=== PATIENT | female | born 1945 | race Hispanic/Latino ===

== ENCOUNTER 2018-08-31 12:22 | Inpatient (IN) | payer MEDICARE ==
[2018-08-31] MEDS: PYRIDIUM PO SCH (22:23)
[2018-08-31] MEDS: REGLAN PO SCH (22:24)
[2018-09-01] MEDS: PYRIDIUM PO SCH (05:42)
[2018-09-01 07:39] LABS: Hematocrit 26.2 % (30.3-42.9); Hemoglobin 8.9 gm/dl (10.1-14.3); Mean Corpuscular HGB Conc 34 % (30-34); Mean Corpuscular Volume 82 fl (79-97); Platelet Count 457 K/mm3 (140-440); Red Cell Distribution Width 16.3 % (13.2-15.2)
[2018-09-01 08:00] LABS: Albumin 2.4 g/dL (3.9-5); Calcium 7.9 mg/dL (8.4-10.2); Prealbumin 0.173 g/L (0.200-0.400)
[2018-09-01] MEDS: REGLAN PO SCH ×4 (08:10→22:02)
[2018-09-01 08:38] LABS: Basophils % (Manual) 0 % (0.0-1.8); Myelocytes # (Manual) 0.1 K/mm3; Total Cells Counted 100
[2018-09-01 08:39] LABS: Anisocytosis 1+
--- NOTE | 2018-09-01 08:46 | History and Physical Report ---
History of Present Illness Date: 09/01/18 Referring Facility: [facility] Date of admission: 08/31/18 20:21 Chief Complaint: Debility s/p bladder cancer resection History of present illness: 73-year-old female with a past history of breast cancer, colorectal cancer and bladder cancer underwent surgical repair of a large parastomal hernia and radica l cystectomy with total abdominal hysterectomy, bilateral salpingo-oophorectomy and anterior vaginectomy. She had a complex abdominal wall reconstruction with repair for the peristomal hernia as well as a ileal conduit creation. Patient has tolerated the procedures well. She has macular degeneration and will need to compensate for the visual impairment Of note patient states that she previously had diabetes and was placed on glipizide however her primary care physician took her off medication and noted that her A1c normalized after being off medication for some time. Likewise she also had hypertension but was becoming hypotensive frequently and her physician weaned her off of her antihypertensives with good results. She was transferred to us on antihypertensives but we will monitor her off of antihypertensive medications replacing them judiciously if need be. I'll recheck an A1c just to clarify that she does not need to be on any medication or treatment for diabetes. Also adjusted the transfer medications to include stopping Pyridium. Patient states that she thought she was taken off of the Macrobid however I was able to contact the urology service at [place] and they advised that she needs to continue taking Macrobid until the stents are removed. She will need a follow-u p in 2 weeks with urology with Dr. QUESADA. After the patient was medically stabilized they were transferred for further rehabilitation. All available medical records have been reviewed but there are limited records from the acute care hospital. Plan of care was discussed with patient and family. Past History Past Medical History: cancer, diabetes (claims she does not have DM anymore), DVT (resolved), hypertension (claims she does not have HTNanymore), hyperlipidemia, other (gastroparesis, macular degeneration, ckd) Past Surgical History: hysterectomy, bowel surgery, Other (radical cystectomy) Social history: single, Lives alone (one story home), full code. denies: smoking, alcohol abuse, prescription drug abuse, IV drug use Family history: cancer, diabetes, hypertension Medications and Allergies Allergies Allergy/AdvReac Type Severity Reaction Status Date / Time ciprofloxacin AdvReac Unknown Unverified 08/31/18 12:25 levofloxacin [From Levaquin] AdvReac Unknown Unverified 08/31/18 12:25 Home Medications Medication Instructions Recorded Confirmed Last Taken Type Adult One Daily Multivit Tab 1 tab PO DAILY 09/01/18 09/01/18 Unknown History Aspirin [Adult Aspirin] 81 mg PO DAILY 09/01/18 09/01/18 Unknown History Crestor 40 mg PO HS 09/01/18 09/01/18 Unknown History Lisinopril/Hydrochlorothiazide 20 - 25 mg PO DAILY 09/01/18 09/01/18 Unknown History [Zestoretic 10-12.5 mg Tablet] Metoclopramide 5 mg PO ACHS 09/01/18 09/01/18 Unknown History Miralax 1 pack PO DAILY 09/01/18 09/01/18 Unknown History Nitrofurantoin Macrocrystal 100 mg PO DAILY 09/01/18 09/01/18 Unknown History [Macrodantin] Phenazopyridine [Pyridium] 200 mg PO PC 09/01/18 09/01/18 Unknown History Active Meds: Active Medications Aspirin (Baby Aspirin) 81 mg PO QDAY [facility] Atorvastatin Calcium (Lipitor) 40 mg PO QHS [facility] Last Admin: 08/31/18 22:23 Dose: 40 mg Documented by: Enoxaparin Sodium (Lovenox) 40 mg SUB-Q QDAY [facility] Hydrochlorothiazide (Hctz) 25 mg PO QDAY [facility] Lisinopril (Zestril) 20 mg PO QDAY [facility] Metoclopramide HCl (Reglan) 5 mg PO [facility] Last Admin: 09/01/18 08:10 Dose: 5 mg Documented by: Nitrofurantoin Macrocrystals (Macrobid) 100 mg PO DAILY [facility] Phenazopyridine HCl (Pyridium) 200 mg PO Q8HR [facility] Last Admin: 09/01/18 05:42 Dose: 200 mg Documented by: Polyethylene Glycol (Miralax [id number]) 17 gm PO QDAY [facility] Trazodone HCl (Desyrel) 50 mg PO QHS PRN PRN Reason: Insomnia Review of Systems All systems: negative (ROS negative for 12 systems except as noted below with pertinent positives and negatives.) Constitutional: weight loss, weakness Eyes: right: decreased vision (macular degeneration) Ears, nose, mouth and throat: no decreased hearing, no odynophagia Cardiovascular: decreased exercise tolerance, no chest pain, no rapid/irregular heart beat, no edema Respiratory: dyspnea on exertion, no cough Gastrointestinal: no nausea, no vomiting, no diarrhea, no constipation Musculoskeletal: gait dysfunction, arthritis Integumentary: wounds, no sores Neurological: weakness, no numbness, no tremors, no lack of coordination Psychiatric: anxiety Exam - Exam Narrative exam: MUSCULOSKELETAL SPECIALTY EXAM CONSTITUTIONAL: Well developed, well nourished, appropriately groomed, NAD LYMPHATIC: No appreciable abnormalities palpable in neck EENT: Visual ding full to confrontation on left. Macular degenration on right. EOMI. Oropharynx clear. Hearing intact to soft voice RESPIRATORY: Clear to ascultation bilaterally, no increased work of breathing CARDIOVASCULAR: Regular Rate/ Rhythm, no swelling, edema or tenderness in BUE or BLE. Pulses palpable in all extremities. All extremities warm. GI: + bowel sounds, soft, NTTP, nondistended. Ostomy (L) and ileal conduit (R) in place and functioning INTEGUMENTARY: Normal, no lesion, rash, masses or bruising noted in extremities. MUSCULOSKELETAL: BUE and BLE normal without defect, crepitus, subluxation, effusion, arthritic changes or TTP. BUE 4/5, good ROM, with normal tone. BLE 4/5 good ROM, with normal tone NEURO: CN 2-12 grossly intact. Sensation intact in all extremities. Reflexes 2+ bilaterally at biceps, brachioradialis and patella. No clonus at ankles. Coordination intact in BUE. No tremor noted in 4 extremities. POSTURE and GAIT: Sitting posture good. Balance appears reasonable. Gait deferred until seen with therapy. PSYCH: Alert, orientated x3, affect appears normal. Insight appears intact. - Constitutional Vitals: Vital Signs - 12hr 09/01/18 09/01/18 04:00 07:30 Temperature 37.0 C 36.8 C Pulse Rate 91 H 95 H Respiratory 20 18 Rate Blood Pressure 121/62 Blood Pressure 135/66 [Left] O2 Sat by Pulse 94 92 Oximetry - Allied health notes FIMS assesment as documented by PT/OT/ST: Social interaction/Memory/Problem solving Social Interaction FIM Score 7. Complete [place] (Interacts appropriately. Controls temper.) Memory FIM Score 7. Complete [place] (Remembers people and routines.) Problem Solving FIM Score 7. Complete [place] (Solves complex problems. Self corrects.) - Labs CBC & Chem 7: 09/01/18 07:16 09/01/18 07:16 Labs: Laboratory Results - last 72 hr 08/31/18 09/01/18 09/01/18 21:50 07:16 07:16 WBC 9.2 RBC 3.20 L Hgb 8.9 L Hct 26.2 L MCV 82 MCH 28 MCHC 34 RDW 16.3 H Plt Count 457 H Add Manual Diff Complete Total Counted 100 Seg Neuts % (Manual) 82.0 H Band Neutrophils % 0 Lymphocytes % (Manual) 9.0 L Reactive Lymphs % (Man) 0 Monocytes % (Manual) 5.0 Eosinophils % (Manual) 2.0 Basophils % (Manual) 0 Metamyelocytes % 1.0 Myelocytes % 1.0 Promyelocytes % 0 Blast Cells % 0 Nucleated RBC % Not Reportable Seg Neutrophils # Man 7.5 Band Neutrophils # 0.0 Lymphocytes # (Manual) 0.8 L Abs React Lymphs (Man) 0.0 Monocytes # (Manual) 0.5 Eosinophils # (Manual) 0.2 Basophils # (Manual) 0.0 Metamyelocytes # 0.1 Myelocytes # 0.1 Promyelocytes # 0.0 Blast Cells # 0.0 WBC Morphology Not Reportable Hypersegmented Neuts Not Reportable Hyposegmented Neuts Not Reportable Hypogranular Neuts Not Reportable Smudge Cells Not Reportable Toxic Granulation Not Reportable Toxic Vacuolation Not Reportable Dohle Bodies Not Reportable Pelger-Huet Anomaly Not Reportable Mine Rods Not Reportable Platelet Estimate Appears normal Clumped Platelets Not Reportable Plt Clumps, EDTA Not Reportable Large Platelets Not Reportable Giant Platelets Not Reportable Platelet Satelliting Not Reportable Plt Morphology Comment Not Reportable RBC Morphology Not Reportable Dimorphic RBCs Not Reportable Polychromasia Not Reportable Hypochromasia Not Reportable Poikilocytosis Not Reportable Anisocytosis 1+ Microcytosis Not Reportable Macrocytosis Not Reportable Spherocytes Not Reportable Pappenheimer Bodies Not Reportable Sickle Cells Not Reportable Target Cells Not Reportable Tear Drop Cells Not Reportable Ovalocytes Not Reportable Helmet Cells Not Reportable Arellano-Turon Bodies Not Reportable Disney Rings Not Reportable [place] Cells Not Reportable Bite Cells Not Reportable Crenated Cell Not Reportable Elliptocytes Not Reportable Acanthocytes (Spur) Not Reportable Rouleaux Not Reportable Hemoglobin C Crystals Not Reportable Schistocytes Not Reportable Malaria parasites Not Reportable Fortunato Bodies Not Reportable Hem Pathologist Commnt No Sodium 133 L Potassium 4.0 Chloride 97.8 L Carbon Dioxide 28 Anion Gap 11 BUN 11 Creatinine 1.0 Estimated GFR 54 BUN/Creatinine Ratio 11 Glucose 131 H POC Glucose 152 H Calcium 7.9 L Total Bilirubin 0.20 AST 20 ALT 10 Alkaline Phosphatase 55 Total Protein 5.1 L Albumin 2.4 L Albumin/Globulin Ratio 0.9 Prealbumin 0.173 L 09/01/18 07:51 WBC RBC Hgb Hct MCV MCH MCHC RDW Plt Count Add Manual Diff Total Counted Seg Neuts % (Manual) Band Neutrophils % Lymphocytes % (Manual) Reactive Lymphs % (Man) Monocytes % (Manual) Eosinophils % (Manual) Basophils % (Manual) Metamyelocytes % Myelocytes % Promyelocytes % Blast Cells % Nucleated RBC % Seg Neutrophils # Man Band Neutrophils # Lymphocytes # (Manual) Abs React Lymphs (Man) Monocytes # (Manual) Eosinophils # (Manual) Basophils # (Manual) Metamyelocytes # Myelocytes # Promyelocytes # Blast Cells # WBC Morphology Hypersegmented Neuts Hyposegmented Neuts Hypogranular Neuts Smudge Cells Toxic Granulation Toxic Vacuolation Dohle Bodies Pelger-Huet Anomaly Mine Rods Platelet Estimate Clumped Platelets Plt Clumps, EDTA Large Platelets Giant Platelets Platelet Satelliting Plt Morphology Comment RBC Morphology Dimorphic RBCs Polychromasia Hypochromasia Poikilocytosis Anisocytosis Microcytosis Macrocytosis Spherocytes Pappenheimer Bodies Sickle Cells Target Cells Tear Drop Cells Ovalocytes Helmet Cells Arellano-Turon Bodies Disney Rings Fadi Cells Bite Cells Crenated Cell Elliptocytes Acanthocytes (Spur) Rouleaux Hemoglobin C Crystals Schistocytes Malaria parasites Fortunato Bodies Hem Pathologist Commnt Sodium Potassium Chloride Carbon Dioxide Anion Gap BUN Creatinine Estimated GFR BUN/Creatinine Ratio Glucose POC Glucose 116 H Calcium Total Bilirubin AST ALT Alkaline Phosphatase Total Protein Albumin Albumin/Globulin Ratio Prealbumin Assessment and Plan Assessment and plan: Patient was assessed and evaluated for Acute Inpatient Rehab Unit. Due to the patients above-mentioned medical complexity, along with decreased functional mobility and self care, this patient continues to require and be appropriate for a comprehensive, multidisciplinary [id number] rehabil itation program. These needs cannot be met in an outpatient or other less intensive setting. The patient would continue to benefit from skilled therapy intervention for at least 3 hours per day, five days a week, with techniques specific to the needs of the patient to improve function, activities of daily living, and reintegration into the community. The patient continues to require: -- OT to improve ROM, self-care, and learn use of adaptive equipment -- PT to improve strength and balance, functional transfers, and ambulation with energy conservation techniques to improve functional mobility -- MARKET GARDENER to address cognitive deficits and swallowing ability -- 24 hour RN to ensure and prevent skin breakdown, promote progressive independence while ensuring safety, ensure education regarding medications, and incorporation of the rehabilitation at the bedside -- 24 hour Machine Feeder to coordinate this interdisciplinary program, and to manage/prevent complications as a result of the patients medical comorbidities. -Plan of care by day 4 -Weekly team conferences With such a program, there is a reasonable certainty that the goals individualized for this patient can be achieved within the specified length of stay. Z48.815 / Z48.816 s/p colorectal cancer and bladder cancer with radical cyst ectomy and parastomal repair: monitor wound sites and ostomy output. Macrobid ppx until stents are removed at follow up. R53.81 Debility: PT & OT will work on improving overall functional status to im prove participation with ADLs, mobility and social involvement. E44.0 Moderate Protein malnutrition: Planetarium Technician consult, monitor for improvement G47.00 Insomnia: trazodone prn, monitor Z73.6 ADL dysfunction: OT will work on improving ability to perform ADLs (including assistive devices) to increase independence and decrease caregiver burden and improve functional transfers and mobility training. R26.2 Difficulty walking: PT will work on gait training and proper use of assistive devices and advance as appropriate to use of stairs and outside ambulation on uneven surfaces. R26.81 Unsteadiness on feet: PT will work on improving static and dynamic sitting and standing balance as well as proper use of assistive devices to decrease risk of falls. R26.89 Abnormality of gait: PT will work to improve safety and efficiency of gait through neuromotor training and gait training along with instruction on proper use of assistive devices. M62.81 Muscle weakness: PT & OT will work on strengthening exercises to improve functional strength including mixture of closed and open kinetic chain exercises. R53.83 Fatigue: PT & OT will work on improving endurance through aerobic exercises and therapeutic activity while monitoring patients tolerance for activity and vital signs as needed. N18.9 CKD: avoid nephrotoxic medication, monitor renal function E78.5 Hyperlipidemia: continue statin HTN: monitor and restart medications if needed DM: recheck A1c to confirm, monitor Macular Degeneration: Avastin every 6 wks, next dose at end of month DVT ppx: lovenox Pain: Continue physical modalities in therapy and pain medications as needed to achieve functional pain control. Sleep: Monitor and address as needed. Trazodone ordered. Bowel: Monitor and address as needed. Appetite: Monitor and address as needed. Discharge planning: Pending therapy progress and care plan meeting. Will continue discussion with therapy team, SW, patient and family. Restrictions/ Precautions: Falls, abdominal binder/precautions WB status: FWB Functional Hx: ADLs: Independent Cognition: Independent Mobility: No AD Barriers to Discharge: Decreased mobility and ability to perform self care, balance deficits, weakness Estimated Length of Stay: 14-21 days Discharge Destination: Home with family POST ADMISSION PHYSICIAN EVALUATION I have examined the patient and find that functional status, medical condition a nd appropriateness for IRF admission are essentially unchanged from those described in the preadmission screening. Will monitor for worsening issues with bowel/urine output, surgical site infection, DVT/PE, and complications due to possible HTN, DM and electrolyte abnormalities. Will attempt to avoid occurrence of these issues or treat them if they present themselves.
[2018-09-01] MEDS ORDERED: ZESTRIL PO SCH (10:00)
[2018-09-01] MEDS ORDERED: MACROBID PO SCH (10:00)
[2018-09-01] MEDS ORDERED: HCTZ PO SCH (10:00)
[2018-09-01] MEDS ORDERED: MIRALAX 3350 PO SCH (10:00)
[2018-09-01] MEDS: LOVENOX SUB-Q SCH (10:58)
[2018-09-01] MEDS: BABY ASPIRIN PO SCH (10:58)
[2018-09-01] MEDS: MACROBID PO SCH (11:00)
[2018-09-02] MEDS: REGLAN PO SCH ×4 (09:04→23:32)
[2018-09-02] MEDS: BABY ASPIRIN PO SCH (09:04)
[2018-09-02] MEDS: MACROBID PO SCH (09:04)
[2018-09-02] MEDS: LOVENOX SUB-Q SCH (09:05)
[2018-09-02] MEDS: PERCOCET 5/325 PO PRN ×2 (10:12→16:54)
--- NOTE | 2018-09-02 10:44 | Progress Note ---
Subjective Date of service: 09/02/18 Principal diagnosis: Debility s/p bladder cancer resection Interval history: 73-year-old female with a past history of breast cancer, colorectal cancer and bladder cancer underwent surgical repair of a large parastomal hernia and radical cystectomy with total abdominal hysterectomy, bilateral salpingo- oophorectomy and anterior vaginectomy. She had a complex abdominal wall reconstruction with repair for the peristomal hernia as well as a ileal conduit creation. Patient has tolerated the procedures well. She has macular degeneration and will need to compensate for the visual impairment. Patient is participating in therapy and making reasonable progress. Taking rest breaks as needed. +ostomy output. Having pain related to activity and movement in general. Typically takes percocet at home, have reordered low dose prn. Decreased appetite and does not like ensure type supplements. States she does not eat much at home. Encouraged her to increase protein intake. Denies palpitations, dyspnea, cough, N/V, weakness, or joint pain. BP steady, may need low dose antihypertensive soon. Will continue to monitor. All records, vitals, labs and medications were reviewed. No other issues per patient, nursing or therapy. Objective - Exam Narrative Exam: MUSCULOSKELETAL SPECIALTY EXAM CONSTITUTIONAL: Well developed, well nourished, appropriately groomed, NAD EENT: EOMI. Hearing intact to soft voice RESPIRATORY: Clear to ascultation bilaterally, no increased work of breathing CARDIOVASCULAR: Regular Rate/ Rhythm, no swelling, edema or tenderness in BUE or BLE. All ex tremities warm. GI: + bowel sounds, soft, NTTP, nondistended. Ostomy (L) and ileal conduit (R) in place and functioning INTEGUMENTARY: Normal, no lesion, rash, masses or bruising noted in extremities. MUSCULOSKELETAL: BUE and BLE normal without defect, crepitus, subluxation, effusion, arthritic changes or TTP. BUE 4/5, good ROM, with normal tone. BLE 4/5 good ROM, with normal tone NEURO: CN 2-12 grossly intact. Sensation intact in all extremities. No tremor noted in 4 extremities. POSTURE and GAIT: Sitting posture good. Balance appears reasonable. Gait deferred until seen with therapy. PSYCH: Alert, orientated x3, affect appears normal. Insight appears intact. - Constitutional Vitals: Vital Signs - 12hr 04/11/1509/02/18 09/02/18 00:14 04:38 07:45 Temperature 36.7 C 36.6 C Pulse Rate 88 95 H 85 Respiratory 17 17 Rate Blood Pressure 137/68 137/69 O2 Sat by Pulse 94 94 Oximetry - Allied health notes Allied health notes reviewed: nursing, PT, OT FIMS assessment as documented by PT/OT/ST: Grooming Patient cleans teeth/dentures: Yes Patient leslie/brushes hair: Yes Patient washes, rinses and Yes dries face: Patient washes, rinses and Yes dries hands: Grooming FIM Score 3. Moderate Assistance (Patient = 50% or more) Social interaction/Memory/Problem solving Social Interaction FIM Score 7. Complete Victoria (Interacts appropriately. Controls temper.) Memory FIM Score 7. Complete [place] (Remembers people and routines.) Problem Solving FIM Score 6. Mod. [place] (Mild difficulty or needs more time w/ complex.) Transfers Mode of Locomotion: Walking Bed/Chair/Wheelchair Transfers 4. Minimal Assistance (Patient = 75% or more. FIM Score Needs touching.) Locomotion- Stairs Stairs FIM Score 0. Activity does not occur Locomotion- walk/wheelchair Most Frequent Mode of Walking Locomotion: Ambulation Distance 25 Walking FIM Score 1. Total Assistance (Pt. < 25%, 2 or more person assist, or <50 ft.) Wheelchair Propulsion Distance 90 Wheelchair FIM Score 2. Maximal Assistance (Patient = 25% or more. Minimum of 50 ft.) Dressing-Upper body Patient retrieves clothing Yes items: Upper Body Dressing FIM Score 3. Moderate Assistance (Patient = 50% or more) - Labs CBC & Chem 7: 09/01/18 07:16 09/01/18 07:16 Labs: Laboratory Results - last 72 hr 08/31/18 09/01/18 09/01/18 21:50 07:16 07:16 WBC 9.2 RBC 3.20 L Hgb 8.9 L Hct 26.2 L MCV 82 MCH 28 MCHC 34 RDW 16.3 H Plt Count 457 H Add Manual Diff Complete Total Counted 100 Seg Neuts % (Manual) 82.0 H Band Neutrophils % 0 Lymphocytes % (Manual) 9.0 L Reactive Lymphs % (Man) 0 Monocytes % (Manual) 5.0 Eosinophils % (Manual) 2.0 Basophils % (Manual) 0 Metamyelocytes % 1.0 Myelocytes % 1.0 Promyelocytes % 0 Blast Cells % 0 Nucleated RBC % Not Reportable Seg Neutrophils # Man 7.5 Band Neutrophils # 0.0 Lymphocytes # (Manual) 0.8 L Abs React Lymphs (Man) 0.0 Monocytes # (Manual) 0.5 Eosinophils # (Manual) 0.2 Basophils # (Manual) 0.0 Metamyelocytes # 0.1 Myelocytes # 0.1 Promyelocytes # 0.0 Blast Cells # 0.0 WBC Morphology Not Reportable Hypersegmented Neuts Not Reportable Hyposegmented Neuts Not Reportable Hypogranular Neuts Not Reportable Smudge Cells Not Reportable Toxic Granulation Not Reportable Toxic Vacuolation Not Reportable Dohle Bodies Not Reportable Pelger-Huet Anomaly Not Reportable Mine Rods Not Reportable Platelet Estimate Appears normal Clumped Platelets Not Reportable Plt Clumps, EDTA Not Reportable Large Platelets Not Reportable Giant Platelets Not Reportable Platelet Satelliting Not Reportable Plt Morphology Comment Not Reportable RBC Morphology Not Reportable Dimorphic RBCs Not Reportable Polychromasia Not Reportable Hypochromasia Not Reportable Poikilocytosis Not Reportable Anisocytosis 1+ Microcytosis Not Reportable Macrocytosis Not Reportable Spherocytes Not Reportable Pappenheimer Bodies Not Reportable Sickle Cells Not Reportable Target Cells Not Reportable Tear Drop Cells Not Reportable Ovalocytes Not Reportable Helmet Cells Not Reportable Arellano-[place] Bodies Not Reportable Azle Rings Not Reportable Fadi Cells Not Reportable Bite Cells Not Reportable Crenated Cell Not Reportable Elliptocytes Not Reportable Acanthocytes (Spur) Not Reportable Rouleaux Not Reportable Hemoglobin C Crystals Not Reportable Schistocytes Not Reportable Malaria parasites Not Reportable Fortun[place] Bodies Not Reportable Hem Pathologist Commnt No Sodium 133 L Potassium 4.0 Chloride 97.8 L Carbon Dioxide 28 Anion Gap 11 BUN 11 Creatinine 1.0 Estimated GFR 54 BUN/Creatinine Ratio 11 Glucose 131 H POC Glucose 152 H Hemoglobin A1c Calcium 7.9 L Total Bilirubin 0.20 AST 20 ALT 10 Alkaline Phosphatase 55 Total Protein 5.1 L Albumin 2.4 L Albumin/Globulin Ratio 0.9 Prealbumin 0.173 L 09/01/18 09/01/18 09/01/18 07:51 11:18 16:55 WBC RBC Hgb Hct MCV MCH MCHC RDW Plt Count Add Manual Diff Total Counted Seg Neuts % (Manual) Band Neutrophils % Lymphocytes % (Manual) Reactive Lymphs % (Man) Monocytes % (Manual) Eosinophils % (Manual) Basophils % (Manual) Metamyelocytes % Myelocytes % Promyelocytes % Blast Cells % Nucleated RBC % Seg Neutrophils # Man Band Neutrophils # Lymphocytes # (Manual) Abs React Lymphs (Man) Monocytes # (Manual) Eosinophils # (Manual) Basophils # (Manual) Metamyelocytes # Myelocytes # Promyelocytes # Blast Cells # WBC Morphology Hypersegmented Neuts Hyposegmented Neuts Hypogranular Neuts Smudge Cells Toxic Granulation Toxic Vacuolation Dohle Bodies Pelger-Huet Anomaly Mine Rods Platelet Estimate Clumped Platelets Plt Clumps, EDTA Large Platelets Giant Platelets Platelet Satelliting Plt Morphology Comment RBC Morphology Dimorphic RBCs Polychromasia Hypochromasia Poikilocytosis Anisocytosis Microcytosis Macrocytosis Spherocytes Pappenheimer Bodies Sickle Cells Target Cells Tear Drop Cells Ovalocytes Helmet Cells Arellano-[place] Bodies Azle Rings [place] Cells Bite Cells Crenated Cell Elliptocytes Acanthocytes (Spur) Rouleaux Hemoglobin C Crystals Schistocytes Malaria parasites Fortunato Bodies Hem Pathologist Commnt Sodium Potassium Chloride Carbon Dioxide Anion Gap BUN Creatinine Estimated GFR BUN/Creatinine Ratio Glucose POC Glucose 116 H 142 H 134 H Hemoglobin A1c Calcium Total Bilirubin AST ALT Alkaline Phosphatase Total Protein Albumin Albumin/Globulin Ratio Prealbumin 09/01/18 09/02/18 09/02/18 21:59 06:53 07:24 WBC RBC Hgb Hct MCV MCH MCHC RDW Plt Count Add Manual Diff Total Counted Seg Neuts % (Manual) Band Neutrophils % Lymphocytes % (Manual) Reactive Lymphs % (Man) Monocytes % (Manual) Eosinophils % (Manual) Basophils % (Manual) Metamyelocytes % Myelocytes % Promyelocytes % Blast Cells % Nucleated RBC % Seg Neutrophils # Man Band Neutrophils # Lymphocytes # (Manual) Abs React Lymphs (Man) Monocytes # (Manual) Eosinophils # (Manual) Basophils # (Manual) Metamyelocytes # Myelocytes # Promyelocytes # Blast Cells # WBC Morphology Hypersegmented Neuts Hyposegmented Neuts Hypogranular Neuts Smudge Cells Toxic Granulation Toxic Vacuolation Dohle Bodies Pelger-Huet Anomaly Mine Rods Platelet Estimate Clumped Platelets Plt Clumps, EDTA Large Platelets Giant Platelets Platelet Satelliting Plt Morphology Comment RBC Morphology Dimorphic RBCs Polychromasia Hypochromasia Poikilocytosis Anisocytosis Microcytosis Macrocytosis Spherocytes Pappenheimer Bodies Sickle Cells Target Cells Tear Drop Cells Ovalocytes Helmet Cells Arellano-[place] Bodies Azle Rings [place] Cells Bite Cells Crenated Cell Elliptocytes Acanthocytes (Spur) Rouleaux Hemoglobin C Crystals Schistocytes Malaria parasites Fortunato Bodies Hem Pathologist Commnt Sodium Potassium Chloride Carbon Dioxide Anion Gap BUN Creatinine Estimated GFR BUN/Creatinine Ratio Glucose POC Glucose 114 H 116 H Hemoglobin A1c 5.3 Calcium Total Bilirubin AST ALT Alkaline Phosphatase Total Protein Albumin Albumin/Globulin Ratio Prealbumin Assessment and Plan Z48.815 / Z48.816 s/p colorectal cancer and bladder cancer with radical cystectomy and parastomal repair: monitor wound sites and ostomy output. Macrobid ppx until stents are removed at follow up. R53.81 Debility: PT & OT will work on improving overall functional status to improve participation with ADLs, mobility and social involvement. E44.0 Moderate Protein malnutrition: Recovery Analyst consult, monitor for improvement G47.00 Insomnia: trazodone prn, monitor Z73.6 ADL dysfunction: OT will work on improving ability to perform ADLs (including assistive devices) to increase independence and decrease caregiver burden and improve functional transfers and mobility training. R26.2 Difficulty walking: PT will work on gait training and proper use of assistive devices and advance as appropriate to use of stairs and outside ambulation on uneven surfaces. R26.81 Unsteadiness on feet: PT will work on improving static and dynamic sitting and standing balance as well as proper use of assistive devices to decrease risk of falls. R26.89 Abnormality of gait: PT will work to improve safety and efficiency of gait through neuromotor training and gait training along with instruction on proper use of assistive devices. M62.81 Muscle weakness: PT & OT will work on strengthening exercises to improve functional strength including mixture of closed and open kinetic chain e xercises. R53.83 Fatigue: PT & OT will work on improving endurance through aerobic exercises and therapeutic activity while monitoring patients tolerance for activity and vital signs as needed. N18.9 CKD: avoid nephrotoxic medication, monitor renal function E78.5 Hyperlipidemia: continue statin HTN: monitor and restart medications if needed. Ok so far DM: recheck A1c 5.3. Will remove diagnosis Macular Degeneration: Avastin every 6 wks, next dose at end of month DVT ppx: lovenox Pain: Continue physical modalities in therapy and pain medications as needed to achieve functional pain control. Sleep: Monitor and address as needed. Trazodone ordered. Bowel: Monitor and address as needed. Appetite: Monitor and address as needed. Discharge planning: Pending therapy progress and care plan meeting. Will continue discussion with therapy team, SW, patient and family. Restrictions/ Precautions: Falls, abdominal binder/precautions WB status: FWB Functional Hx: ADLs: Independent Cognition: Independent Mobility: No AD Barriers to Discharge: Decreased mobility and ability to perform self care, balance deficits, weakness Estimated Length of Stay: 14-21 days Discharge Destination: Home with family
[2018-09-03] MEDS: REGLAN PO SCH ×4 (07:49→21:15)
[2018-09-03] MEDS: BABY ASPIRIN PO SCH (07:49)
[2018-09-03] MEDS: LOVENOX SUB-Q SCH (07:50)
[2018-09-03] MEDS: MACROBID PO SCH ×2 (07:57→11:43)
[2018-09-03 08:09] LABS: Hematocrit 27.1 % (30.3-42.9); Hemoglobin 8.9 gm/dl (10.1-14.3); Mean Corpuscular HGB Conc 33 % (30-34); Mean Corpuscular Volume 83 fl (79-97); Platelet Count 429 K/mm3 (140-440); Red Blood Count 3.27 M/mm3 (3.65-5.03); Red Cell Distribution Width 15.8 % (13.2-15.2)
[2018-09-03 08:30] LABS: BUN/Creatinine Ratio 13; Blood Urea Nitrogen 10 mg/dL (7-17); Hemolysis Index 39
--- NOTE | 2018-09-03 11:04 | Progress Note ---
Subjective Date of service: 09/03/18 Principal diagnosis: Debility s/p bladder cancer resection Interval history: 73-year-old female with a past history of breast cancer, colorectal cancer and bladder cancer underwent surgical repair of a large parastomal hernia and radical cystectomy with total abdominal hysterectomy, bilateral salpingo- oophorectomy and anterior vaginectomy. She had a complex abdominal wall reconstruction with repair for the peristomal hernia as well as a ileal conduit creation. Patient has tolerated the procedures well. She has macular degeneration and will need to compensate for the visual impairment. Patient is participating in therapy and making reasonable progress. Taking rest breaks as needed. +ostomy output. Having pain related to activity and movement in general, better with rest and percocet. Decreased appetite and does not like ensure type supplements but now states she will try them. Encouraged her to increase protein intake. Denies palpitations, dyspnea, cough, N/V, weakness, or joint pain. BP steady, may need low dose antihypertensive soon. Will continue to monitor. Hyponatremia worsening. Ordered workup and reviewed outside records for trend. All records, vitals, labs and medications were reviewed. No other issues per patient, nursing or therapy. Objective - Exam Narrative Exam: MUSCULOSKELETAL SPECIALTY EXAM CONSTITUTIONAL: Well developed, well nourished, appropriately groomed, NAD EENT: EOMI. Hearing intact to soft voice RESPIRATORY: Clear to ascultation bilaterally, no increased work of breathing CARDIOVASCULAR: Regular Rate/ Rhythm, no swelling, edema or tenderness in BUE or BLE. All extremities warm. GI: + bowel sounds, soft, NTTP, nondistended. Ostomy (L) and ileal conduit (R) in place and functioning INTEGUMENTARY: Normal, no lesion, rash, masses or bruising noted in extremities. MUSCULOSKELETAL: BUE and BLE normal without defect, crepitus, subluxation, effusion, arthritic changes or TTP. BUE 4/5, good ROM, with normal tone. BLE 4/5 good ROM, with normal tone NEURO: CN 2-12 grossly intact. Sensation intact in all extremities. No tremor noted in 4 extremities. POSTURE and GAIT: Sitting posture good. Balance appears reasonable. Gait deferred until seen with therapy. PSYCH: Alert, orientated x3, affect appears normal. Insight appears intact. - Constitutional Vitals: Vital Signs - 12hr 09/03/18 07:24 Temperature 36.8 C Pulse Rate 89 Respiratory 20 Rate Blood Pressure 134/71 O2 Sat by Pulse 94 Oximetry - Allied health notes Allied health notes reviewed: nursing, PT, OT FIMS assessment as documented by PT/OT/ST: Grooming Patient cleans teeth/dentures: Yes Patient leslie/brushes hair: Yes Patient washes, rinses and Yes dries face: Patient washes, rinses and Yes dries hands: Patient shaves: No Patient applies make-up: No Patient performs (no make-up/ 3/4 (75%) shaving): Grooming FIM Score 5. Supervision ([place] applies toothpaste or opens containers.) Social interaction/Memory/Problem solving Social Interaction FIM Score 5. Supervision (Needs supv. <10%. Needs encouragement to participate.) Memory FIM Score 5. Supervision (Needs cueing <10%, stressful/ unfamiliar situations.) Problem Solving FIM Score 5. Supervision (Needs cueing <10% to solve routine problems.) Transfers Mode of Locomotion: Wheelchair Bed/Chair/Wheelchair Transfers 4. Minimal Assistance (Patient = 75% or more. FIM Score Needs touching.) Locomotion- Stairs Stairs FIM Score 0. Activity does not occur Locomotion- walk/wheelchair Most Frequent Mode of Walking Locomotion: Ambulation Distance 25 Walking FIM Score 1. Total Assistance (Pt. < 25%, 2 or more person assist, or <50 ft.) Wheelchair Propulsion Distance 90 Wheelchair FIM Score 2. Maximal Assistance (Patient = 25% or more. Minimum of 50 ft.) Eating Eating FIM Score 7. Complete Park (Cuts meat, opens containers, regular diet.) Dressing-Upper body Patient retrieves clothing Yes items: Upper Body Dressing FIM Score 3. Moderate Assistance (Patient = 50% or more) - Labs CBC & Chem 7: 09/03/18 07:40 09/03/18 07:40 Labs: Laboratory Results - last 72 hr 08/31/18 09/01/18 09/01/18 21:50 07:16 07:16 WBC 9.2 RBC 3.20 L Hgb 8.9 L Hct 26.2 L MCV 82 MCH 28 MCHC 34 RDW 16.3 H Plt Count 457 H Add Manual Diff Complete Total Counted 100 Seg Neuts % (Manual) 82.0 H Band Neutrophils % 0 Lymphocytes % (Manual) 9.0 L Reactive Lymphs % (Man) 0 Monocytes % (Manual) 5.0 Eosinophils % (Manual) 2.0 Basophils % (Manual) 0 Metamyelocytes % 1.0 Myelocytes % 1.0 Promyelocytes % 0 Blast Cells % 0 Nucleated RBC % Not Reportable Seg Neutrophils # Man 7.5 Band Neutrophils # 0.0 Lymphocytes # (Manual) 0.8 L Abs React Lymphs (Man) 0.0 Monocytes # (Manual) 0.5 Eosinophils # (Manual) 0.2 Basophils # (Manual) 0.0 Metamyelocytes # 0.1 Myelocytes # 0.1 Promyelocytes # 0.0 Blast Cells # 0.0 WBC Morphology Not Reportable Hypersegmented Neuts Not Reportable Hyposegmented Neuts Not Reportable Hypogranular Neuts Not Reportable Smudge Cells Not Reportable Toxic Granulation Not Reportable Toxic Vacuolation Not Reportable Dohle Bodies Not Reportable Pelger-Huet Anomaly Not Reportable Mine Rods Not Reportable Platelet Estimate Appears normal Clumped Platelets Not Reportable Plt Clumps, EDTA Not Reportable Large Platelets Not Reportable Giant Platelets Not Reportable Platelet Satelliting Not Reportable Plt Morphology Comment Not Reportable RBC Morphology Not Reportable Dimorphic RBCs Not Reportable Polychromasia Not Reportable Hypochromasia Not Reportable Poikilocytosis Not Reportable Anisocytosis 1+ Microcytosis Not Reportable Macrocytosis Not Reportable Spherocytes Not Reportable Pappenheimer Bodies Not Reportable Sickle Cells Not Reportable Target Cells Not Reportable Tear Drop Cells Not Reportable Ovalocytes Not Reportable Helmet Cells Not Reportable [place] Bodies Not Reportable [place] Rings Not Reportable [place] Cells Not Reportable Bite Cells Not Reportable Crenated Cell Not Reportable Elliptocytes Not Reportable Acanthocytes (Spur) Not Reportable Rouleaux Not Reportable Hemoglobin C Crystals Not Reportable Schistocytes Not Reportable Malaria parasites Not Reportable [place] Bodies Not Reportable Hem Pathologist Commnt No Sodium 133 L Potassium 4.0 Chloride 97.8 L Carbon Dioxide 28 Anion Gap 11 BUN 11 Creatinine 1.0 Estimated GFR 54 BUN/Creatinine Ratio 11 Glucose 131 H POC Glucose 152 H Hemoglobin A1c Calcium 7.9 L Total Bilirubin 0.20 AST 20 ALT 10 Alkaline Phosphatase 55 Total Protein 5.1 L Albumin 2.4 L Albumin/Globulin Ratio 0.9 Prealbumin 0.173 L 04/05/19 04/05/19 04/05/19 07:51 11:18 16:55 WBC RBC Hgb Hct MCV MCH MCHC RDW Plt Count Add Manual Diff Total Counted Seg Neuts % (Manual) Band Neutrophils % Lymphocytes % (Manual) Reactive Lymphs % (Man) Monocytes % (Manual) Eosinophils % (Manual) Basophils % (Manual) Metamyelocytes % Myelocytes % Promyelocytes % Blast Cells % Nucleated RBC % Seg Neutrophils # Man Band Neutrophils # Lymphocytes # (Manual) Abs React Lymphs (Man) Monocytes # (Manual) Eosinophils # (Manual) Basophils # (Manual) Metamyelocytes # Myelocytes # Promyelocytes # Blast Cells # WBC Morphology Hypersegmented Neuts Hyposegmented Neuts Hypogranular Neuts Smudge Cells Toxic Granulation Toxic Vacuolation Dohle Bodies Pelger-Huet Anomaly Mine Rods Platelet Estimate Clumped Platelets Plt Clumps, EDTA Large Platelets Giant Platelets Platelet Satelliting Plt Morphology Comment RBC Morphology Dimorphic RBCs Polychromasia Hypochromasia Poikilocytosis Anisocytosis Microcytosis Macrocytosis Spherocytes Pappenheimer Bodies Sickle Cells Target Cells Tear Drop Cells Ovalocytes Helmet Cells [place] Bodies [place] Rings [place] Cells Bite Cells Crenated Cell Elliptocytes Acanthocytes (Spur) Rouleaux Hemoglobin C Crystals Schistocytes Malaria parasites [place]ortun[place] Bodies Hem Pathologist Commnt Sodium Potassium Chloride Carbon Dioxide Anion Gap BUN Creatinine Estimated GFR BUN/Creatinine Ratio Glucose POC Glucose 116 H 142 H 134 H Hemoglobin A1c Calcium Total Bilirubin AST ALT Alkaline Phosphatase Total Protein Albumin Albumin/Globulin Ratio Prealbumin 09/01/18 09/02/18 09/02/18 21:59 06:53 07:24 WBC RBC Hgb Hct MCV MCH MCHC RDW Plt Count Add Manual Diff Total Counted Seg Neuts % (Manual) Band Neutrophils % Lymphocytes % (Manual) Reactive Lymphs % (Man) Monocytes % (Manual) Eosinophils % (Manual) Basophils % (Manual) Metamyelocytes % Myelocytes % Promyelocytes % Blast Cells % Nucleated RBC % Seg Neutrophils # Man Band Neutrophils # Lymphocytes # (Manual) Abs React Lymphs (Man) Monocytes # (Manual) Eosinophils # (Manual) Basophils # (Manual) Metamyelocytes # Myelocytes # Promyelocytes # Blast Cells # WBC Morphology Hypersegmented Neuts Hyposegmented Neuts Hypogranular Neuts Smudge Cells Toxic Granulation Toxic Vacuolation Dohle Bodies Pelger-Huet Anomaly Mine Rods Platelet Estimate Clumped Platelets Plt Clumps, EDTA Large Platelets Giant Platelets Platelet Satelliting Plt Morphology Comment RBC Morphology Dimorphic RBCs Polychromasia Hypochromasia Poikilocytosis Anisocytosis Microcytosis Macrocytosis Spherocytes Pappenheimer Bodies Sickle Cells Target Cells Tear Drop Cells Ovalocytes Helmet Cells [place] Bodies [place] Rings [place] Cells Bite Cells Crenated Cell Elliptocytes Acanthocytes (Spur) Rouleaux Hemoglobin C Crystals Schistocytes Malaria parasites [place]ortun[place] Bodies Hem Pathologist Commnt Sodium Potassium Chloride Carbon Dioxide Anion Gap BUN Creatinine Estimated GFR BUN/Creatinine Ratio Glucose POC Glucose 114 H 116 H Hemoglobin A1c 5.3 Calcium Total Bilirubin AST ALT Alkaline Phosphatase Total Protein Albumin Albumin/Globulin Ratio Prealbumin 09/02/18 09/02/18 09/02/18 12:14 16:27 22:43 WBC RBC Hgb Hct MCV MCH MCHC RDW Plt Count Add Manual Diff Total Counted Seg Neuts % (Manual) Band Neutrophils % Lymphocytes % (Manual) Reactive Lymphs % (Man) Monocytes % (Manual) Eosinophils % (Manual) Basophils % (Manual) Metamyelocytes % Myelocytes % Promyelocytes % Blast Cells % Nucleated RBC % Seg Neutrophils # Man Band Neutrophils # Lymphocytes # (Manual) Abs React Lymphs (Man) Monocytes # (Manual) Eosinophils # (Manual) Basophils # (Manual) Metamyelocytes # Myelocytes # Promyelocytes # Blast Cells # WBC Morphology Hypersegmented Neuts Hyposegmented Neuts Hypogranular Neuts Smudge Cells Toxic Granulation Toxic Vacuolation Dohle Bodies Pelger-Huet Anomaly Mine Rods Platelet Estimate Clumped Platelets Plt Clumps, EDTA Large Platelets Giant Platelets Platelet Satelliting Plt Morphology Comment RBC Morphology Dimorphic RBCs Polychromasia Hypochromasia Poikilocytosis Anisocytosis Microcytosis Macrocytosis Spherocytes Pappenheimer Bodies Sickle Cells Target Cells Tear Drop Cells Ovalocytes Helmet Cells [place] Bodies [place] Rings Fadi Cells Bite Cells Crenated Cell Elliptocytes Acanthocytes (Spur) Rouleaux Hemoglobin C Crystals Schistocytes Malaria parasites [place]ortun[place] Bodies Hem Pathologist Commnt Sodium Potassium Chloride Carbon Dioxide Anion Gap BUN Creatinine Estimated GFR BUN/Creatinine Ratio Glucose POC Glucose 137 H 105 138 H Hemoglobin A1c Calcium Total Bilirubin AST ALT Alkaline Phosphatase Total Protein Albumin Albumin/Globulin Ratio Prealbumin 09/03/18 09/03/18 09/03/18 07:40 07:40 07:42 WBC 7.7 RBC 3.27 L Hgb 8.9 L Hct 27.1 L MCV 83 MCH 27 L MCHC 33 RDW 15.8 H Plt Count 429 Add Manual Diff Total Counted Seg Neuts % (Manual) Band Neutrophils % Lymphocytes % (Manual) Reactive Lymphs % (Man) Monocytes % (Manual) Eosinophils % (Manual) Basophils % (Manual) Metamyelocytes % Myelocytes % Promyelocytes % Blast Cells % Nucleated RBC % Seg Neutrophils # Man Band Neutrophils # Lymphocytes # (Manual) Abs React Lymphs (Man) Monocytes # (Manual) Eosinophils # (Manual) Basophils # (Manual) Metamyelocytes # Myelocytes # Promyelocytes # Blast Cells # WBC Morphology Hypersegmented Neuts Hyposegmented Neuts Hypogranular Neuts Smudge Cells Toxic Granulation Toxic Vacuolation Dohle Bodies Pelger-Huet Anomaly Mine Rods Platelet Estimate Clumped Platelets Plt Clumps, EDTA Large Platelets Giant Platelets Platelet Satelliting Plt Morphology Comment RBC Morphology Dimorphic RBCs Polychromasia Hypochromasia Poikilocytosis Anisocytosis Microcytosis Macrocytosis Spherocytes Pappenheimer Bodies Sickle Cells Target Cells Tear Drop Cells Ovalocytes Helmet Cells [place] Bodies [place] Rings Fadi Cells Bite Cells Crenated Cell Elliptocytes Acanthocytes (Spur) Rouleaux Hemoglobin C Crystals Schistocytes Malaria parasites Fortunato Bodies Hem Pathologist Commnt Sodium 132 L Potassium 4.6 Chloride 97.8 L Carbon Dioxide 27 Anion Gap 12 BUN 10 Creatinine 0.8 Estimated GFR > 60 BUN/Creatinine Ratio 13 Glucose 113 H POC Glucose 122 H Hemoglobin A1c Calcium 8.0 L Total Bilirubin AST ALT Alkaline Phosphatase Total Protein Albumin Albumin/Globulin Ratio Prealbumin Assessment and Plan Z48.815 / Z48.816 s/p colorectal cancer and bladder cancer with radical cystectomy and parastomal repair: monitor wound sites and ostomy output. Macro bid ppx until stents are removed at follow up. R53.81 Debility: PT & OT will work on improving overall functional status to improve participation with ADLs, mobility and social involvement. E44.0 Moderate Protein malnutrition: Skiing Instructor consult, monitor for improvement E87.1 Hyponatremia: Check labs (Urine and Serum Osm and Urine Na), Values not available yet. OSH labs reviewed and showed hyponatremia present. G47.00 Insomnia: trazodone prn, monitor Z73.6 ADL dysfunction: OT will work on improving ability to perform ADLs (including assistive devices) to increase independence and decrease caregiver burden and improve functional transfers and mobility training. R26.2 Difficulty walking: PT will work on gait training and proper use of assistive devices and advance as appropriate to use of stairs and outside ambulation on uneven surfaces. R26.81 Unsteadiness on feet: PT will work on improving static and dynamic sitting and standing balance as well as proper use of assistive devices to d ecrease risk of falls. R26.89 Abnormality of gait: PT will work to improve safety and efficiency of gait through neuromotor training and gait training along with instruction on proper use of assistive devices. M62.81 Muscle weakness: PT & OT will work on strengthening exercises to improve functional strength including mixture of closed and open kinetic chain exercises. R53.83 Fatigue: PT & OT will work on improving endurance through aerobic exercises and therapeutic activity while monitoring patients tolerance for activity and vital signs as needed. N18.9 CKD: avoid nephrotoxic medication, monitor renal function E78.5 Hyperlipidemia: continue statin HTN: monitor and restart medications if needed. Ok so far DM: recheck A1c 5.3. Will remove diagnosis Macular Degeneration: Avastin every 6 wks, next dose at end of month DVT ppx: lovenox Pain: Continue physical modalities in therapy and pain medications as needed to achieve functional pain control. Sleep: Monitor and address as needed. Trazodone ordered. Bowel: Monitor and address as needed. Appetite: Monitor and address as needed. Discharge planning: Pending therapy progress and care plan meeting. Will continue discussion with therapy team, SW, patient and family. Restrictions/ Precautions: Falls, abdominal binder/precautions WB status: FWB Functional Hx: ADLs: Independent Cognition: Independent Mobility: No AD Barriers to Discharge: Decreased mobility and ability to perform self care, balance deficits, weakness Estimated Length of Stay: 14-21 days Discharge Destination: Home with family
--- NOTE | 2018-09-03 12:32 | IRU Plan of Care ---
Interdisciplinary Plan of Care - IP IRU INTERDISCIPLINARY PLAN: [facility] Inpatient Rehab Unit Plan of Care IRU Interdisciplinary Care Plan Start: 08/31/18 20:58 Freq: Admission then PRN Status: Active Protocol: Document 09/02/18 08:02 TH (Rec: 09/02/18 08:05 TH [id number]) Interdisciplinary Problem List Interdisciplinary Problem List Interdisciplinary Problem List Impaired Dressing,Impaired Query Text:Answers will Trigger Problems Mobility,Impaired Transfers, and Outcomes on Worklist. Impaired Toileting,Knowledge Deficits,Impaired Skin/Tissue Integrity,Discharge Concerns, Medications Education,Impaired Cardiovascular System IRU Interdisciplinary Care Plan Therapy Services Therapy Services Will Include: Physical Therapy,Occupational Query Text:Patient will be seen for a Therapy minimum of 3 hours of daily therapy 5 out of 7 days a week. Therapy intensity may be adjusted within a 7 consecutive day period to effectively serve the individual needs of the patient. Treatment Frequency/Intensity/Duration Treatment Frequency 5 days per week Treatment Intensity 3 hours per day Treatment Duration 7-14 days Problem Area: Eating/Swallowing Eating/Swallowing Outcomes Eating/Swallowing Interventions Problem Area: Bathing/Grooming Bathing/Grooming Outcomes Improve Isabela w/ Grooming,Improve Isabela w/ Bathing Bathing/Grooming Interventions ADL Training,Therapeutic Exercise,Therapeutic Activity, Patient/Caregiver Education Problem Area: Dressing Dressing Outcomes Dressing Interventions Problem Area: Mobility Mobility Outcomes Improve Isabela w/ Bed Mobility,Improve Isabela w/ Ambulation,Improve Isabela w/ Stairs/Curb, Improve Isabela w/ Wheelchair Mobility Interventions Therapeutic Exercise, Neuromuscular Re-Ed.,Activity Tolerance Work,Use of Assistive Devices,Patient/ Caregiver Education,Bed Mobility Work,Gait Training, Household Mobility Work,W/C Mobility Work Problem Area: Transfers Transfers Outcomes Improve Isabela w/ Bed Transfers,Improve Isabela w/ Car Transfers Transfers Interventions Transfer Training,Therapeutic Exercise,Neuromuscular Re- Education,Activity Tolerance Work,Use of Assistive Devices, Patient/Caregiver Education Problem Area: Bowel/Bladder Managment Bowel/Bladder Outcomes Improve Isabela w/ Ileal Bowel/Bladder Interventions conduit and ostomy management. Problem Area: Toileting Toileting Outcomes Toileting Interventions Problem Area: Nutrition Nutrition Outcomes Improve protein intake with choice of food Nutrition Interventions and supplements to improve protein malnutrition Problem Area: Comprehension Comprehension Outcomes Comprehension Interventions Problem Area: Expression Expression Outcomes Expression Interventions Problem Area: Problem Solving Problem Solving Outcomes Problem Solving Interventions Problem Area: Memory Memory Outcomes Memory Interventions Problem Area: Pain Management Pain Management Outcomes Improve ability to manage pain with Pain Management Interventions decreasing use of opioids. Pain medications prn Problem Area: Knowledge Deficits Knowledge Deficits Outcomes Knowledge Deficits Interventions Problem Area: Skin/Tissue Integrity Monitor wounds and improve Isabela Skin/Tissue Integrity Outcomes w/ skin/wound care and inspection, pressure Skin/Tissue Integrity Interventions relief training. Problem Area: Social Interaction Social Interaction Outcomes Social Interaction Interventions Problem Area: Adjustment to Disability Adjustment to Disability Outcomes Adjustment to Disability Interventions Problem Area: Discharge Concerns Discharge Concerns Outcomes Discharge w/ Necessary Equipment,Have Home Health/ Outpatient Services Discharge Concerns Interventions Discharge Planning,Family/ Caregiver Conference,Family/ Caregiver Training Problem Area: Community Reintegration Community Reintegration Outcomes Community Reintegration Interventions Problem Area: Home Management Home Management Outcomes Home Management Interventions Problem Area: Safety Safety Outcomes Provide Safe Environment, Demonstrate Good Safety w/ Transfers/Mobility Safety Interventions Identify Fall Risk,[place] Pt. to Environment,Reduce Environmental Hazards Problem Area: Medication Education Medication Education Outcomes Patient/Caregiver will Verbalize Understanding of Medications Medication Education Interventions Explain Administration/Side Effects/Interactions Problem Area: Diabetes Education Diabetes Education Outcomes Diabetes Education Interventions Problem Area: Oxygenation Oxygenation Outcomes Oxygenation Interventions Problem Area: Cardiovascular Cardiovascular Outcomes Cardiovascular Interventions Physician Only Medical Prognosis and Rehabilitation Potential (Completed by Physician) Fair medical prognosis due to multiple cancers and overall health. Patient has a reasonable rehab potential due to determination and willingness to work. Will need increased nutrition for healing and energy. Familiar with maintenance of ostomy, now with ileal conduit. Pain fairly well controlled except when activity causes a flair up. This plan of care has been developed based on the findings from the pre- admission assessment, post admission physician evaluation, information gathered from the assessments from all therapy disciplines and other pertinent clinicians. The plan of care has been reviewed and discussed in collaboration with the interdisciplinary team. The plan of care will be reviewed and updated at least weekly.
[2018-09-03 17:06] LABS: Osmolality,Urine 312 Mosm/kg
[2018-09-04] MEDS: BABY ASPIRIN PO SCH (08:55)
[2018-09-04] MEDS: LOVENOX SUB-Q SCH (08:55)
[2018-09-04] MEDS: REGLAN PO SCH ×4 (08:55→21:43)
[2018-09-04] MEDS: MACROBID PO SCH ×2 (08:56→10:00)
[2018-09-04] MEDS: NON-FORMULARY PO SCH (09:03)
[2018-09-04] MEDS ORDERED: MACUHEALTH PO SCH (10:00)
--- NOTE | 2018-09-04 15:12 | Progress Note ---
Subjective Date of service: 09/04/18 Principal diagnosis: Debility s/p bladder cancer resection Interval history: 73-year-old female with a past history of breast cancer, colorectal cancer and bladder cancer underwent surgical repair of a large parastomal hernia and radical cystectomy with total abdominal hysterectomy, bilateral salpingo- oophorectomy and anterior vaginectomy. She had a complex abdominal wall reconstruction with repair for the peristomal hernia as well as a ileal conduit creation. Patient has tolerated the procedures well. She has macular degeneration and will need to compensate for the visual impairment. Patient is participating in therapy and making reasonable progress. Taking rest breaks as needed- needed more breaks to day but was better in the afternoon. +ostomy output. Generalized pain was better today - actually no issues. Decreased appetite, attempting supplements. Encouraged her to increase protein intake. Denies palpitations, dyspnea, cough, N/V, weakness, or joint pain. BP steady, HR elevated at times but improves with rest. Continue to monitor for need to return to antihypertensive use, has been off of them for some time before hospitalization. Will continue to monitor. All records, vitals, labs and medications were reviewed. No other issues per patient, nursing or therapy. Objective - Exam Narrative Exam: MUSCULOSKELETAL SPECIALTY EXAM CONSTITUTIONAL: Well developed, well nourished, appropriately groomed, NAD EENT: EOMI. Hearing intact to soft voice RESPIRATORY: Clear to ascultation bilaterally, no increased work of breathing CARDIOVASCULAR: Regular Rate/ Rhythm, no swelling, edema or tenderness in BUE or BLE. All extremities warm. GI: + bowel sounds, soft, NTTP, nondistended. Ostomy (L) and ileal conduit (R) in place and functioning INTEGUMENTARY: Normal, no lesion, rash, masses or bruising noted in extremities. MUSCULOSKELETAL: BUE and BLE normal without defect, crepitus, subluxation, effusion, arthritic changes or TTP. BUE 4/5, good ROM, with normal tone. BLE 4/5 good ROM, with normal tone NEURO: CN 2-12 grossly intact. Sensation intact in all extremities. No tremor noted in 4 extremities. POSTURE and GAIT: Sitting posture good. Balance appears reasonable. Gait deferred until seen with therapy. PSYCH: Alert, orientated x3, affect appears normal. Insight appears intact. - Constitutional Vitals: Vital Signs - 12hr 09/04/18 09/04/18 09/04/18 05:23 07:38 11:43 Temperature 36.6 C 36.9 C Pulse Rate 89 84 Respiratory 20 16 Rate Blood Pressure 130/61 Blood Pressure 122/64 [Left] O2 Sat by Pulse 95 95 95 Oximetry 09/04/18 12:01 Temperature 36.8 C Pulse Rate 101 H Respiratory 20 Rate Blood Pressure Blood Pressure 117/62 [Left] O2 Sat by Pulse 97 Oximetry - Allied health notes Allied health notes reviewed: nursing, PT, OT FIMS assessment as documented by PT/OT/ST: Grooming Patient cleans teeth/dentures: Yes Patient leslie/brushes hair: Yes Patient washes, rinses and Yes dries face: Patient washes, rinses and Yes dries hands: Patient shaves: No Patient applies make-up: No Patient performs (no make-up/ 3/4 (75%) shaving): Grooming FIM Score 5. Supervision ([place] applies toothpaste or opens containers.) Social interaction/Memory/Problem solving Social Interaction FIM Score 5. Supervision (Needs supv. <10%. Needs encouragement to participate.) Memory FIM Score 5. Supervision (Needs cueing <10%, stressful/ unfamiliar situations.) Problem Solving FIM Score 5. Supervision (Needs cueing <10% to solve routine problems.) Transfers Mode of Locomotion: Walking Bed/Chair/Wheelchair Transfers 4. Minimal Assistance (Patient = 75% or more. FIM Score Needs touching.) Locomotion- Stairs Device used on Stairs Handrail/s Number of Stairs Ascended/ 4 Descended Patient used handrail/support: Yes Stairs FIM Score 2. Maximal Assistance (Patient = 25% or more, 4- 6 stairs.) Locomotion- walk/wheelchair Most Frequent Mode of Walking Locomotion: Ambulation Distance 127 Walking FIM Score 2. Maximal Assistance (Patient = 25% or more. Minimum of 50 ft.) Wheelchair Propulsion Distance 90 Wheelchair FIM Score 2. Maximal Assistance (Patient = 25% or more. Minimum of 50 ft.) Eating Eating FIM Score 7. Complete [place] (Cuts meat, opens containers, regular diet.) Dressing-Upper body Patient retrieves clothing Yes items: Upper Body Dressing FIM Score 3. Moderate Assistance (Patient = 50% or more) - Labs CBC & Chem 7: 09/03/18 07:40 09/03/18 07:40 Labs: Laboratory Results - last 72 hr 09/01/18 09/01/18 09/02/18 16:55 21:59 06:53 WBC RBC Hgb Hct MCV MCH MCHC RDW Plt Count Sodium Potassium Chloride Carbon Dioxide Anion Gap BUN Creatinine Estimated GFR BUN/Creatinine Ratio Glucose POC Glucose 134 H 114 H Hemoglobin A1c 5.3 Osmolality Calcium Urine Osmolality Urine Sodium 09/02/18 09/02/18 09/02/18 07:24 12:14 16:27 WBC RBC Hgb Hct MCV MCH MCHC RDW Plt Count Sodium Potassium Chloride Carbon Dioxide Anion Gap BUN Creatinine Estimated GFR BUN/Creatinine Ratio Glucose POC Glucose 116 H 137 H 105 Hemoglobin A1c Osmolality Calcium Urine Osmolality Urine Sodium 09/02/18 09/03/18 09/03/18 22:43 07:40 07:40 WBC 7.7 RBC 3.27 L Hgb 8.9 L Hct 27.1 L MCV 83 MCH 27 L MCHC 33 RDW 15.8 H Plt Count 429 Sodium 132 L Potassium 4.6 Chloride 97.8 L Carbon Dioxide 27 Anion Gap 12 BUN 10 Creatinine 0.8 Estimated GFR > 60 BUN/Creatinine Ratio 13 Glucose 113 H POC Glucose 138 H Hemoglobin A1c Osmolality Calcium 8.0 L Urine Osmolality Urine Sodium 09/03/18 09/03/18 09/03/18 07:42 11:56 12:28 WBC RBC Hgb Hct MCV MCH MCHC RDW Plt Count Sodium Potassium Chloride Carbon Dioxide Anion Gap BUN Creatinine Estimated GFR BUN/Creatinine Ratio Glucose POC Glucose 122 H 110 H Hemoglobin A1c Osmolality 275 Calcium Urine Osmolality Urine Sodium 09/03/18 09/03/18 09/03/18 16:29 21:53 Unknown WBC RBC Hgb Hct MCV MCH MCHC RDW Plt Count Sodium Potassium Chloride Carbon Dioxide Anion Gap BUN Creatinine Estimated GFR BUN/Creatinine Ratio Glucose POC Glucose 123 H 107 H Hemoglobin A1c Osmolality Calcium Urine Osmolality 312 Urine Sodium 65 09/04/18 09/04/18 07:30 11:36 WBC RBC Hgb Hct MCV MCH MCHC RDW Plt Count Sodium Potassium Chloride Carbon Dioxide Anion Gap BUN Creatinine Estimated GFR BUN/Creatinine Ratio Glucose POC Glucose 114 H 159 H Hemoglobin A1c Osmolality Calcium Urine Osmolality Urine Sodium Assessment and Plan Z48.815 / Z48.816 s/p colorectal cancer and bladder cancer with radical cystectomy and parastomal repair: monitor wound sites and ostomy output. Macrobid ppx until stents are removed at follow up. R53.81 Debility: PT & OT will work on improving overall functional status to improve participation with ADLs, mobility and social involvement. E44.0 Moderate Protein malnutrition: Band Scroll Saw Operator consult, monitor for improvement E87.1 Hyponatremia: Check labs (Urine and Serum Osm and Urine Na), OSH labs reviewed and showed hyponatremia stable. G47.00 Insomnia: trazodone prn, monitor Z73.6 ADL dysfunction: OT will work on improving ability to perform ADLs (including assistive devices) to increase independence and decrease caregiver burden and improve functional transfers and mobility training. R26.2 Difficulty walking: PT will work on gait training and proper use of assistive devices and advance as appropriate to use of stairs and outside ambulation on uneven surfaces. R26.81 Unsteadiness on feet: PT will work on improving static and dynamic sitting and standing balance as well as proper use of assistive devices to decrease risk of falls. R26.89 Abnormality of gait: PT will work to improve safety and efficiency of gait through neuromotor training and gait training along with instruction on proper use of assistive devices. M62.81 Muscle weakness: PT & OT will work on strengthening exercises to improve functional strength including mixture of closed and open kinetic chain exercises. R53.83 Fatigue: PT & OT will work on improving endurance through aerobic exercises and therapeutic activity while monitoring patients tolerance for activity and vital signs as needed. N18.9 CKD: avoid nephrotoxic medication, monitor renal function E78.5 Hyperlipidemia: continue statin HTN: monitor and restart medications if needed. Ok so far DM: recheck A1c 5.3. Will remove diagnosis Macular Degeneration: Avastin every 6 wks, next dose at end of month DVT ppx: lovenox Pain: Continue physical modalities in therapy and pain medications as needed to achieve functional pain control. Sleep: Monitor and address as needed. Trazodone ordered. Bowel: Monitor and address as needed. Appetite: Monitor and address as needed. Discharge planning: Pending therapy progress and care plan meeting. Will continue discussion with therapy team, SW, patient and family. Restrictions/ Precautions: Falls, abdominal binder/precautions WB status: FWB Functional Hx: ADLs: Independent Cognition: Independent Mobility: No AD Barriers to Discharge: Decreased mobility and ability to perform self care, balance deficits, weakness Estimated Length of Stay: 14-21 days Discharge Destination: Home with family
[2018-09-04] MEDS: DESYREL PO PRN (23:54)
[2018-09-05] MEDS: REGLAN PO SCH ×4 (08:45→21:13)
[2018-09-05] MEDS: MACROBID PO SCH (10:14)
[2018-09-05] MEDS: NON-FORMULARY PO SCH (10:17)
[2018-09-05] MEDS: BABY ASPIRIN PO SCH (10:17)
[2018-09-05] MEDS: LOVENOX SUB-Q SCH (10:17)
[2018-09-05] MEDS: MIRALAX 3350 PO PRN (10:18)
--- NOTE | 2018-09-05 13:41 | Progress Note ---
Subjective Date of service: 09/05/18 Principal diagnosis: Debility s/p bladder cancer resection Interval history: 73-year-old female with a past history of breast cancer, colorectal cancer and bladder cancer underwent surgical repair of a large parastomal hernia and radical cystectomy with total abdominal hysterectomy, bilateral salpingo- oophorectomy and anterior vaginectomy. She had a complex abdominal wall reconstruction with repair for the peristomal hernia as well as a ileal conduit creation. Patient has tolerated the procedures well. She has macular degeneration and will need to compensate for the visual impairment. Patient is participating in therapy and making reasonable progress. Taking rest breaks as needed. +ostomy output. Generalized pain no issues. Decreased appetite but improving, attempting supplements. Encouraged her to increase protein intake. Denies palpitations, dyspnea, cough, N/V, weakness, or joint pain. BP steady, HR elevated at times but improves with rest. Continue to monitor for need to return to antihypertensive use, has been off of them for some time before hospitalization. Will continue to monitor. Contacted [facility] about bloody discharge from ileal conduit, some is to be expected but asked for clarification of how much before we get concerned. CBC ordered. Follow up with Urology scheduled. Discussed in Team Conference. Making reasonable progress. Discussed discharge options if she does not improve to indepence level and determined SNF as best option. Will continue to progress to independence if possible. All records, vitals, labs and medications were reviewed. No other issues per patient, nursing or therapy. Objective - Exam Narrative Exam: MUSCULOSKELETAL SPECIALTY EXAM CONSTITUTIONAL: Well developed, well nourished, appropriately groomed, NAD EENT: EOMI. Hearing intact to soft voice RESPIRATORY: Clear to ascultation bilaterally, no increased work of breathing CARDIOVASCULAR: Regular Rate/ Rhythm, no swelling, edema or tenderness in BUE or BLE. All extremities warm. GI: + bowel sounds, soft, NTTP, nondistended. Ostomy (L) and ileal conduit (R) in place and functioning. Bloody output from ileal conduit stable INTEGUMENTARY: Normal, no lesion, rash, masses or bruising noted in extremities. MUSCULOSKELETAL: BUE and BLE normal without defect, crepitus, subluxation, effusion, arthritic changes or TTP. BUE 4/5, good ROM, with normal tone. BLE 4/5 good ROM, with normal tone NEURO: CN 2-12 grossly intact. Sensation intact in all extremities. No tremor noted in 4 extremities. POSTURE and GAIT: Sitting posture good. Balance appears reasonable. Gait deferred until seen with therapy. PSYCH: Alert, orientated x3, affect appears normal. Insight appears intact. - Constitutional Vitals: Vital Signs - 12hr 09/05/18 09/05/18 09/05/18 03:36 07:30 11:57 Temperature 36.7 C 36.7 C 36.5 C Pulse Rate 94 H 77 90 Respiratory 18 18 18 Rate Blood Pressure 118/57 Blood Pressure 126/56 120/53 [Left] O2 Sat by Pulse 94 90 96 Oximetry - Allied health notes Allied health notes reviewed: nursing, PT, OT FIMS assessment as documented by PT/OT/ST: Grooming Patient cleans teeth/dentures: Yes Patient leslie/brushes hair: Yes Patient washes, rinses and Yes dries face: Patient washes, rinses and Yes dries hands: Patient shaves: No Patient applies make-up: No Patient performs (no make-up/ 3/4 (75%) shaving): Grooming FIM Score 5. Supervision ([place] applies toothpaste or opens containers.) Social interaction/Memory/Problem solving Social Interaction FIM Score 5. Supervision (Needs supv. <10%. Needs encouragement to participate.) Memory FIM Score 5. Supervision (Needs cueing <10%, stressful/ unfamiliar situations.) Problem Solving FIM Score 5. Supervision (Needs cueing <10% to solve routine problems.) Transfers Mode of Locomotion: Walking Bed/Chair/Wheelchair Transfers 4. Minimal Assistance (Patient = 75% or more. FIM Score Needs touching.) Locomotion- Stairs Device used on Stairs Handrail/s Number of Stairs Ascended/ 4 Descended Patient used handrail/support: Yes Stairs FIM Score 2. Maximal Assistance (Patient = 25% or more, 4- 6 stairs.) Locomotion- walk/wheelchair Most Frequent Mode of Walking Locomotion: Ambulation Distance 127 Walking FIM Score 2. Maximal Assistance (Patient = 25% or more. Minimum of 50 ft.) Wheelchair Propulsion Distance 90 Wheelchair FIM Score 2. Maximal Assistance (Patient = 25% or more. Minimum of 50 ft.) Eating Eating FIM Score 7. Complete [place] (Cuts meat, opens containers, regular diet.) Dressing-Upper body Patient retrieves clothing Yes items: Upper Body Dressing FIM Score 3. Moderate Assistance (Patient = 50% or more) - Labs CBC & Chem 7: 09/03/18 07:40 09/03/18 07:40 Labs: Laboratory Results - last 72 hr 09/02/18 09/02/18 09/03/18 16:27 22:43 07:40 WBC 7.7 RBC 3.27 L Hgb 8.9 L Hct 27.1 L MCV 83 MCH 27 L MCHC 33 RDW 15.8 H Plt Count 429 Sodium Potassium Chloride Carbon Dioxide Anion Gap BUN Creatinine Estimated GFR BUN/Creatinine Ratio Glucose POC Glucose 105 138 H Osmolality Calcium Urine Osmolality Urine Sodium 09/03/18 09/03/18 09/03/18 07:40 07:42 11:56 WBC RBC Hgb Hct MCV MCH MCHC RDW Plt Count Sodium 132 L Potassium 4.6 Chloride 97.8 L Carbon Dioxide 27 Anion Gap 12 BUN 10 Creatinine 0.8 Estimated GFR > 60 BUN/Creatinine Ratio 13 Glucose 113 H POC Glucose 122 H Osmolality 275 Calcium 8.0 L Urine Osmolality Urine Sodium 09/03/18 09/03/18 09/03/18 12:28 16:29 21:53 WBC RBC Hgb Hct MCV MCH MCHC RDW Plt Count Sodium Potassium Chloride Carbon Dioxide Anion Gap BUN Creatinine Estimated GFR BUN/Creatinine Ratio Glucose POC Glucose 110 H 123 H 107 H Osmolality Calcium Urine Osmolality Urine Sodium 09/03/18 09/04/18 09/04/18 Unknown 07:30 11:36 WBC RBC Hgb Hct MCV MCH MCHC RDW Plt Count Sodium Potassium Chloride Carbon Dioxide Anion Gap BUN Creatinine Estimated GFR BUN/Creatinine Ratio Glucose POC Glucose 114 H 159 H Osmolality Calcium Urine Osmolality 312 Urine Sodium 65 09/04/18 09/04/18 09/05/18 16:38 21:50 08:10 WBC RBC Hgb Hct MCV MCH MCHC RDW Plt Count Sodium Potassium Chloride Carbon Dioxide Anion Gap BUN Creatinine Estimated GFR BUN/Creatinine Ratio Glucose POC Glucose 110 H 114 H 117 H Osmolality Calcium Urine Osmolality Urine Sodium 09/05/18 11:06 WBC RBC Hgb Hct MCV MCH MCHC RDW Plt Count Sodium Potassium Chloride Carbon Dioxide Anion Gap BUN Creatinine Estimated GFR BUN/Creatinine Ratio Glucose POC Glucose 125 H Osmolality Calcium Urine Osmolality Urine Sodium Assessment and Plan Z48.815 / Z48.816 s/p colorectal cancer and bladder cancer with radical cystectomy and parastomal repair: monitor wound sites and ostomy output. Macrobid ppx until stents are removed at follow up. R53.81 Debility: PT & OT will work on improving overall functional status to improve participation with ADLs, mobility and social involvement. E44.0 Moderate Protein malnutrition: Motor Vehicle Compliance Analyst consult, monitor for improvement E87.1 Hyponatremia: Check labs (Urine and Serum Osm and Urine Na), OSH labs reviewed and showed hyponatremia stable. G47.00 Insomnia: trazodone prn, monitor Z73.6 ADL dysfunction: OT will work on improving ability to perform ADLs (including assistive devices) to increase independence and decrease caregiver burden and improve functional transfers and mobility training. R26.2 Difficulty walking: PT will work on gait training and proper use of assistive devices and advance as appropriate to use of stairs and outside ambulation on uneven surfaces. R26.81 Unsteadiness on feet: PT will work on improving static and dynamic sitting and standing balance as well as proper use of assistive devices to decrease risk of falls. R26.89 Abnormality of gait: PT will work to improve safety and efficiency of gait through neuromotor training and gait training along with instruction on proper use of assistive devices. M62.81 Muscle weakness: PT & OT will work on strengthening exercises to improve functional strength including mixture of closed and open kinetic chain exercises. R53.83 Fatigue: PT & OT will work on improving endurance through aerobic exercises and therapeutic activity while monitoring patients tolerance for activity and vital signs as needed. N18.9 CKD: avoid nephrotoxic medication, monitor renal function E78.5 Hyperlipidemia: continue statin HTN: monitor and restart medications if needed. Ok so far DM: recheck A1c 5.3. Will remove diagnosis Macular Degeneration: Avastin every 6 wks, next dose at end of month IM consulted for medical management. DVT ppx: lovenox Pain: Continue physical modalities in therapy and pain medications as needed to achieve functional pain control. Sleep: Monitor and address as needed. Trazodone ordered. Bowel: Monitor and address as needed. Appetite: Monitor and address as needed. Discharge planning: Pending therapy progress and care plan meeting. Will continue discussion with therapy team, SW, patient and family. Restrictions/ Precautions: Falls, abdominal binder/precautions WB status: FWB Functional Hx: ADLs: Independent Cognition: Independent Mobility: No AD Barriers to Discharge: Decreased mobility and ability to perform self care, balance deficits, weakness Estimated Length of Stay: 14-21 days Discharge Destination: Home with family
[2018-09-05] MEDS: PERCOCET 5/325 PO PRN (18:15)
[2018-09-06] MEDS: DESYREL PO PRN ×2 (01:20→22:50)
[2018-09-06] MEDS: BABY ASPIRIN PO SCH (08:44)
[2018-09-06] MEDS: REGLAN PO SCH ×4 (08:44→22:50)
[2018-09-06] MEDS: LOVENOX SUB-Q SCH (08:44)
[2018-09-06] MEDS: NON-FORMULARY PO SCH ×2 (08:49→09:08)
[2018-09-06] MEDS: MACROBID PO SCH ×2 (08:49→09:07)
--- NOTE | 2018-09-06 10:21 | Consultation ---
History of Present Illness - Reason for Consult Consult date: 09/06/18 medical management Requesting physician: VITALY JOHN III - History of Present Illness 73-year-old female patient with significant past medical history of breast cancer colorectal cancer bladder cancer underwent surgical repair of parastomal hernia and radical cystectomy with total abdominal hysterectomy, bilateral salpingo-oophorectomy and anterior Vagenectomy. Patient had complex abdominal wall reconstruction surgery. Patient also has macular degeneration with visual impairment Admitted for rehabilitation Patient has history of diabetes mellitus on oral hypoglycemics however PMD discontinued the medication as blood sugars were normal Patient also had hypertension did not require any medications Medical consult was requested for medical management Past History Past Medical History: cancer, diabetes (claims she does not have DM anymore), DVT (resolved), hypertension (claims she does not have HTNanymore), hyperlipidemia, other (gastroparesis, macular degeneration, ckd) Past Surgical History: hysterectomy, bowel surgery, Other (radical cystectomy) Social history: single, Lives alone (one story home), full code. denies: smoking, alcohol abuse, prescription drug abuse, IV drug use Family history: cancer, diabetes, hypertension Medications and Allergies Allergies Allergy/AdvReac Type Severity Reaction Status Date / Time ciprofloxacin AdvReac Unknown Unverified 08/31/18 12:25 levofloxacin [From Levaquin] AdvReac Unknown Unverified 08/31/18 12:25 Home Medications Medication Instructions Recorded Confirmed Last Taken Type Adult One Daily Multivit Tab 1 tab PO DAILY 09/01/18 09/01/18 Unknown History Aspirin [Adult Aspirin] 81 mg PO DAILY 09/01/18 09/01/18 Unknown History Crestor 40 mg PO HS 09/01/18 09/01/18 Unknown History Lisinopril/Hydrochlorothiazide 20 - 25 mg PO DAILY 09/01/18 09/01/18 Unknown History [Zestoretic 10-12.5 mg Tablet] Metoclopramide 5 mg PO ACHS 09/01/18 09/01/18 Unknown History Miralax 1 pack PO DAILY 09/01/18 09/01/18 Unknown History Nitrofurantoin Macrocrystal 100 mg PO DAILY 09/01/18 09/01/18 Unknown History [Macrodantin] Phenazopyridine [Pyridium] 200 mg PO PC 09/01/18 09/01/18 Unknown History Macular Health Formula Capsule 1 tab PO DAILY 09/03/18 09/03/18 Unknown History Active Meds: Active Medications Aspirin (Baby Aspirin) 81 mg PO QDAY [facility] Last Admin: 09/06/18 08:44 Dose: 81 mg Documented by: Atorvastatin Calcium (Lipitor) 40 mg PO QHS [facility] Last Admin: 09/05/18 21:13 Dose: 40 mg Documented by: Enoxaparin Sodium (Lovenox) 40 mg SUB-Q QDAY [facility] Last Admin: 09/06/18 08:44 Dose: 40 mg Documented by: Metoclopramide HCl (Reglan) 5 mg PO ACHS [facility] Last Admin: 09/06/18 08:44 Dose: 5 mg Documented by: Miscellaneous Medication (Non-Formulary) 1 each PO DAILY [facility] Last Admin: 09/06/18 09:08 Dose: Not Given Documented by: Nitrofurantoin Macrocrystals (Macrobid) 100 mg PO DAILY [facility] Last Admin: 09/06/18 09:07 Dose: Not Given Documented by: Oxycodone/Acetaminophen (Percocet 5/325) 1 tab PO Q6H PRN PRN Reason: Pain, Moderate (4-6) Last Admin: 09/05/18 18:15 Dose: 1 tab Documented by: Polyethylene Glycol (Miralax [id number]) 17 gm PO QDAY PRN PRN Reason: Constipation Last Admin: 09/05/18 10:18 Dose: 17 gm Documented by: Trazodone HCl (Desyrel) 50 mg PO QHS PRN PRN Reason: Insomnia Last Admin: 09/06/18 01:20 Dose: 50 mg Documented by: Review of Systems Constitutional: weight loss, anorexia, fatigue Ears, nose, mouth and throat: no nasal congestion, no nasal discharge Cardiovascular: no chest pain, no orthopnea Respiratory: no cough, no hemoptysis Gastrointestinal: no abdominal pain, no nausea, no vomiting Genitourinary Female: no pelvic pain, no dysuria Musculoskeletal: no myalgias, no arthritis Integumentary: no rash, no lesions Neurological: weakness, no paralysis, no seizures Psychiatric: no anxiety, no depression Endocrine: no cold intolerance, no heat intolerance Hematologic/Lymphatic: no easy bruising, no easy bleeding Allergic/Immunologic: no urticaria, no allergic rhinitis Exam - Constitutional Vitals: Temp Pulse Resp BP Pulse Ox 97.9 F 91 H 18 116/58 95 09/06/18 07:38 09/06/18 07:38 09/06/18 07:38 09/06/18 07:38 09/06/18 07:38 General appearance: Present: no acute distress, well-nourished - EENT Eyes: Present: PERRL, EOM intact - Neck Neck: Present: supple, normal ROM - Respiratory Respiratory effort: normal Respiratory: bilateral: diminished, negative: rales, rhonchi, wheezing - Cardiovascular Rhythm: regular Heart Sounds: Present: S1 & S2 - Extremities Extremities: no ischemia, No edema - Abdominal General gastrointestinal: Present: soft, non-tender, non-distended, normal bowel sounds - Integumentary Integumentary: Present: clear, warm - Musculoskeletal Musculoskeletal: generalized weakness - Psychiatric Psychiatric: appropriate mood/affect, cooperative - Neurologic Neurologic: moves all extremities Results - Labs CBC & Chem 7: 09/03/18 07:40 09/03/18 07:40 Labs: Abnormal lab results 09/05/18 Range/Units 11:06 POC Glucose 125 H (70-105) Assessment and Plan --Complex surgical procedure; rehabilitation, physical therapy occupational therapy --Breast cancer colorectal cancer bladder cancer; status post surgical procedures Continue supportive care --History of diabetes; Accu-Chek sliding scale coverage and ADA diet Long-acting insulin if needed --History of hypertension; closely monitor blood pressures, adjust antihypertensives as needed --History of macular degeneration; visual impairment supportive care --DVT prophylaxis; --Gastroesophageal reflux disease; Protonix Closely monitor the patient and adjust the management as needed ;
[2018-09-06] MEDS: PERCOCET 5/325 PO PRN (18:39)
[2018-09-06] MEDS ORDERED: CRESTOR 40 MG PO SCH (22:00)
[2018-09-07] MEDS: HALFPRIN EC PO SCH (09:04)
[2018-09-07] MEDS: NON-FORMULARY PO SCH (09:04)
[2018-09-07] MEDS: LOVENOX SUB-Q SCH (09:04)
[2018-09-07] MEDS: REGLAN PO SCH ×4 (09:04→22:24)
[2018-09-07] MEDS: MACROBID PO SCH (09:04)
[2018-09-07] MEDS: HCTZ PO SCH (09:05)
[2018-09-07] MEDS: ZESTRIL PO SCH (15:10)
[2018-09-07] MEDS: PERCOCET 5/325 PO PRN (18:25)
--- NOTE | 2018-09-07 19:45 | Progress Note ---
Assessment and Plan Assessment and plan: --History of diabetes; Accu-Chek sliding scale coverage and ADA diet Long-acting insulin if needed --History of hypertension; well controlled ,did not need her blood pressure medications today --Complex surgical procedure; rehabilitation, physical therapy occupational therapy --Breast cancer colorectal cancer bladder cancer; status post surgical procedures Continue supportive care --History of macular degeneration; visual impairment supportive care --DVT prophylaxis; --Gastroesophageal reflux disease; Protonix Closely monitor the patient and adjust the management as needed ; History Interval history: Patient seen and examined medical records reviewed Patient feels slightly better new complaints Not needing any blood pressure medications Vital signs reviewed Hospitalist Physical - Constitutional Vitals: Temp Pulse Resp BP Pulse Ox 98.8 F 91 H 18 122/58 95 09/07/18 17:00 09/07/18 17:00 09/07/18 18:25 09/07/18 17:00 09/07/18 16:34 General appearance: Present: no acute distress, well-nourished - EENT Eyes: Present: PERRL, EOM intact - Neck Neck: Present: supple, normal ROM - Respiratory Respiratory effort: normal Respiratory: bilateral: diminished, negative: rales, rhonchi, wheezing - Cardiovascular Rhythm: regular Heart Sounds: Present: S1 & S2 - Extremities Extremities: no ischemia, No edema - Abdominal General gastrointestinal: soft, non-tender, non-distended, normal bowel sounds - Integumentary Integumentary: Present: clear, warm - Psychiatric Psychiatric: appropriate mood/affect, cooperative - Neurologic Neurologic: moves all extremities Results - Labs CBC & Chem 7: 09/03/18 07:40 09/03/18 07:40 Labs: Laboratory Last Values WBC 7.7 K/mm3 (4.5-11.0) 09/03/18 07:40 RBC 3.27 M/mm3 (3.65-5.03) L 09/03/18 07:40 Hgb 8.9 gm/dl (10.1-14.3) L 09/03/18 07:40 Hct 27.1 % (30.3-42.9) L 09/03/18 07:40 MCV 83 fl (79-97) 09/03/18 07:40 MCH 27 pg (28-32) L 09/03/18 07:40 MCHC 33 % (30-34) 09/03/18 07:40 RDW 15.8 % (13.2-15.2) H 09/03/18 07:40 Plt Count 429 K/mm3 (140-440) 09/03/18 07:40 Add Manual Diff Complete 09/01/18 07:16 Total Counted 100 09/01/18 07:16 Seg Neuts % (Manual) 82.0 % (40.0-70.0) H 09/01/18 07:16 Band Neutrophils % 0 % 09/01/18 07:16 Lymphocytes % (Manual) 9.0 % (13.4-35.0) L 09/01/18 07:16 Reactive Lymphs % (Man) 0 % 09/01/18 07:16 Monocytes % (Manual) 5.0 % (0.0-7.3) 09/01/18 07:16 Eosinophils % (Manual) 2.0 % (0.0-4.3) 09/01/18 07:16 Basophils % (Manual) 0 % (0.0-1.8) 09/01/18 07:16 Metamyelocytes % 1.0 % 09/01/18 07:16 Myelocytes % 1.0 % 09/01/18 07:16 Promyelocytes % 0 % 09/01/18 07:16 Blast Cells % 0 % 09/01/18 07:16 Nucleated RBC % Not Reportable 09/01/18 07:16 Seg Neutrophils # Man 7.5 K/mm3 (1.8-7.7) 09/01/18 07:16 Band Neutrophils # 0.0 K/mm3 09/01/18 07:16 Lymphocytes # (Manual) 0.8 K/mm3 (1.2-5.4) L 09/01/18 07:16 Abs React Lymphs (Man) 0.0 K/mm3 09/01/18 07:16 Monocytes # (Manual) 0.5 K/mm3 (0.0-0.8) 09/01/18 07:16 Eosinophils # (Manual) 0.2 K/mm3 (0.0-0.4) 09/01/18 07:16 Basophils # (Manual) 0.0 K/mm3 (0.0-0.1) 09/01/18 07:16 Metamyelocytes # 0.1 K/mm3 09/01/18 07:16 Myelocytes # 0.1 K/mm3 09/01/18 07:16 Promyelocytes # 0.0 K/mm3 09/01/18 07:16 Blast Cells # 0.0 K/mm3 09/01/18 07:16 WBC Morphology Not Reportable 09/01/18 07:16 Hypersegmented Neuts Not Reportable 09/01/18 07:16 Hyposegmented Neuts Not Reportable 09/01/18 07:16 Hypogranular Neuts Not Reportable 09/01/18 07:16 Smudge Cells Not Reportable 09/01/18 07:16 Toxic Granulation Not Reportable 09/01/18 07:16 Toxic Vacuolation Not Reportable 09/01/18 07:16 Dohle Bodies Not Reportable 09/01/18 07:16 Pelger-Huet Anomaly Not Reportable 09/01/18 07:16 Mine Rods Not Reportable 09/01/18 07:16 Platelet Estimate Appears normal 09/01/18 07:16 Clumped Platelets Not Reportable 09/01/18 07:16 Plt Clumps, EDTA Not Reportable 09/01/18 07:16 Large Platelets Not Reportable 09/01/18 07:16 Giant Platelets Not Reportable 09/01/18 07:16 Platelet Satelliting Not Reportable 09/01/18 07:16 Plt Morphology Comment Not Reportable 09/01/18 07:16 RBC Morphology Not Reportable 09/01/18 07:16 Dimorphic RBCs Not Reportable 09/01/18 07:16 Polychromasia Not Reportable 09/01/18 07:16 Hypochromasia Not Reportable 09/01/18 07:16 Poikilocytosis Not Reportable 09/01/18 07:16 Anisocytosis 1+ 09/01/18 07:16 Microcytosis Not Reportable 09/01/18 07:16 Macrocytosis Not Reportable 09/01/18 07:16 Spherocytes Not Reportable 09/01/18 07:16 Pappenheimer Bodies Not Reportable 09/01/18 07:16 Sickle Cells Not Reportable 09/01/18 07:16 Target Cells Not Reportable 09/01/18 07:16 Tear Drop Cells Not Reportable 09/01/18 07:16 Ovalocytes Not Reportable 09/01/18 07:16 Helmet Cells Not Reportable 09/01/18 07:16 [place] Bodies Not Reportable 09/01/18 07:16 [place] Rings Not Reportable 09/01/18 07:16 [place] Cells Not Reportable 09/01/18 07:16 Bite Cells Not Reportable 09/01/18 07:16 Crenated Cell Not Reportable 09/01/18 07:16 Elliptocytes Not Reportable 09/01/18 07:16 Acanthocytes (Spur) Not Reportable 09/01/18 07:16 Rouleaux Not Reportable 09/01/18 07:16 Hemoglobin C Crystals Not Reportable 09/01/18 07:16 Schistocytes Not Reportable 09/01/18 07:16 Malaria parasites Not Reportable 09/01/18 07:16 [place] Bodies Not Reportable 09/01/18 07:16 Hem Pathologist Commnt No 09/01/18 07:16 Sodium 132 mmol/L (137-145) L 09/03/18 07:40 Potassium 4.6 mmol/L (3.6-5.0) 09/03/18 07:40 Chloride 97.8 mmol/L (98-107) L 09/03/18 07:40 Carbon Dioxide 27 mmol/L (22-30) 09/03/18 07:40 Anion Gap 12 mmol/L 09/03/18 07:40 BUN 10 mg/dL (7-17) 09/03/18 07:40 Creatinine 0.8 mg/dL (0.7-1.2) 09/03/18 07:40 Estimated GFR > 60 ml/min 09/03/18 07:40 BUN/Creatinine Ratio 13 % 09/03/18 07:40 Glucose 113 mg/dL (65-100) H 09/03/18 07:40 POC Glucose 102 (70-105) 09/06/18 11:53 Hemoglobin A1c 5.3 % (4-6) 09/02/18 06:53 Osmolality 275 Mosm/kg 09/03/18 11:56 Calcium 8.0 mg/dL (8.4-10.2) L 09/03/18 07:40 Total Bilirubin 0.20 mg/dL (0.1-1.2) 09/01/18 07:16 AST 20 units/L (5-40) 09/01/18 07:16 ALT 10 units/L (7-56) 09/01/18 07:16 Alkaline Phosphatase 55 units/L (35-129) 09/01/18 07:16 Total Protein 5.1 g/dL (6.3-8.2) L 09/01/18 07:16 Albumin 2.4 g/dL (3.9-5) L 09/01/18 07:16 Albumin/Globulin Ratio 0.9 % 09/01/18 07:16 Prealbumin 0.173 g/L (0.200-0.400) L 09/01/18 07:16 Urine Osmolality 312 Mosm/kg 09/03/18 Unknown Urine Sodium 65 mmol/L 09/03/18 Unknown Active Medications - Current Medications Current Medications: Generic Name Dose Route Start Last Admin Trade Name Freq PRN Reason Stop Dose Admin Aspirin 81 mg 09/07/18 10:00 09/07/18 09:04 Halfprin Ec PO 81 mg DAILY [facility]ST[facility] Administration Atorvastatin Calcium 40 mg 08/31/18 22:00 09/06/18 22:50 Lipitor PO 40 mg QHS [facility] Administration Enoxaparin Sodium 40 mg 09/01/18 10:00 09/07/18 09:04 Lovenox SUB-Q 40 mg QDAY [facility]ST[facility] Administration Hydrochlorothiazide 25 mg 09/07/18 08:00 09/07/18 09:05 Hctz PO Not Given QDAY [facility] Lisinopril 20 mg 09/07/18 08:00 09/07/18 15:10 Zestril PO Not Given QDAY [facility] Metoclopramide HCl 5 mg 08/31/18 22:00 09/07/18 18:25 Reglan PO 5 mg ACHS [facility] Administration Miscellaneous Medication 1 each 09/04/18 10:00 09/07/18 09:04 Non-Formulary PO 1 each DAILY [facility] Administration Nitrofurantoin Macrocrystals 100 mg 09/01/18 10:00 09/07/18 09:04 Macrobid PO 100 mg DAILY [facility] Administration Oxycodone/Acetaminophen 1 tab 09/02/18 09:22 09/07/18 18:25 Percocet 5/325 PO 1 tab Q6H PRN Administration Pain, Moderate (4-6) Polyethylene Glycol 17 gm 09/01/18 10:00 09/05/18 10:18 Miralax 3350 PO 17 gm QDAY PRN Administration Constipation Trazodone HCl 50 mg 08/31/18 20:41 09/06/18 22:50 Desyrel PO 50 mg QHS PRN Administration Insomnia Nutrition/Malnutrition Assess - Dietary Evaluation Nutrition/Malnutrition Findings: Nutrition Notes Start: 09/07/18 10:44 Freq: Status: Active Protocol: Document 09/07/18 10:44 EB (Rec: 09/07/18 10:51 EB [id number]) Co-Sign 09/07/18 10:44 LP Nutrition Notes Need for Assessment generated from: LOS Initial or Follow up Brief Note Other Pertinent Diagnosis PMHx breast, colorectal, and bladder CA Current Diet Regular Labs/Tests Reviewed Pertinent Medications Reglan Height 5 ft 5.08 in Weight 81.6 kg Usual Body Weight 81.193 kg Heaters Body Weight (kg) 57.00 BMI 29.8 Intake Prior to Admission Fair Weight Status Appropriate Subjective/Other Information Screened for LOS. Pt reports consuming about 75 % of each meal, and states that even when she does not feel hungry she manages to eat an adequate amount. Pt requests Ensure Enlive to be delivered at dinner time, and also that she does not like eggs and instead would like double cereal for breakfast tray. UBW: 179 lbs (81.4 kg). Percent of energy/protein needs met: 100%/100% Burn Absent Trauma Absent Is patient on ventilator? No Is Patient Ambulatory and/or Out of Bed Yes REE-(Poneto-St. Jeor-ambulatory/OOB) [ 1707.069 [id number]] Calculation Used for Recommendations Poneto-St Jeor Additional Notes PRO: 1-1.2 g/kg (81-97 g/day) Fluid: 1 mL/kcal Nutrition Intervention Change Diet Order: Continue current + double portion cereal at breakfast Add Supplement/Snack (indicate name/kcal Ensure Enlive strawberry (with /protein ) dinner tray) Provides kCal: 350 Provides Protein (gm) 20 Goal #1 Continue to meet at least 75% yung and pro needs via PO and ONS intake Revisit per MD consult or patient Sign Off request:
[2018-09-07] MEDS: DESYREL PO PRN (23:54)
[2018-09-08] MEDS: PERCOCET 5/325 PO PRN (01:57)
[2018-09-08] MEDS: REGLAN PO SCH ×5 (08:30→22:23)
[2018-09-08] MEDS: LOVENOX SUB-Q SCH (11:38)
[2018-09-08] MEDS: HCTZ PO SCH (11:39)
[2018-09-08] MEDS: HALFPRIN EC PO SCH (13:37)
[2018-09-08] MEDS: MACROBID PO SCH (13:37)
[2018-09-08] MEDS: NON-FORMULARY PO SCH (13:38)
[2018-09-08] MEDS: ZESTRIL PO SCH (18:09)
--- NOTE | 2018-09-08 18:20 | Progress Note ---
Assessment and Plan Assessment and plan: --Complex surgical procedure; rehabilitation, physical therapy occupational therapy --History of diabetes; Accu-Chek sliding scale coverage and ADA diet Long-acting insulin if needed --History of hypertension; well controlled ,did not need her blood pressure medications today --Breast cancer colorectal cancer bladder cancer; status post surgical procedures Continue supportive care --History of macular degeneration; visual impairment supportive care --DVT prophylaxis; --Gastroesophageal reflux disease; Protonix Closely monitor the patient and adjust the management as needed ; History Interval history: Patient seen and examined, medical records reviewed Patient was feeling sleepy and missed her morning physical therapy No other complaints Vital signs reviewed Hospitalist Physical - Constitutional Vitals: Temp Pulse Resp BP Pulse Ox 97.6 F 96 H 18 125/55 100 09/08/18 15:00 09/08/18 15:00 09/08/18 15:00 09/08/18 18:09 09/08/18 15:00 General appearance: Present: no acute distress, well-nourished - EENT Eyes: Present: PERRL, EOM intact - Neck Neck: Present: supple, normal ROM - Respiratory Respiratory effort: normal Respiratory: bilateral: diminished, negative: rales, rhonchi, wheezing - Cardiovascular Rhythm: regular Heart Sounds: Present: S1 & S2 - Extremities Extremities: no ischemia, No edema - Abdominal General gastrointestinal: soft, non-tender, non-distended, normal bowel sounds - Integumentary Integumentary: Present: clear, warm - Psychiatric Psychiatric: appropriate mood/affect, cooperative - Neurologic Neurologic: CNII-XII intact, moves all extremities Results - Labs CBC & Chem 7: 09/03/18 07:40 09/03/18 07:40 Labs: Laboratory Last Values WBC 7.7 K/mm3 (4.5-11.0) 09/03/18 07:40 RBC 3.27 M/mm3 (3.65-5.03) L 09/03/18 07:40 Hgb 8.9 gm/dl (10.1-14.3) L 09/03/18 07:40 Hct 27.1 % (30.3-42.9) L 09/03/18 07:40 MCV 83 fl (79-97) 09/03/18 07:40 MCH 27 pg (28-32) L 09/03/18 07:40 MCHC 33 % (30-34) 09/03/18 07:40 RDW 15.8 % (13.2-15.2) H 09/03/18 07:40 Plt Count 429 K/mm3 (140-440) 09/03/18 07:40 Add Manual Diff Complete 09/01/18 07:16 Total Counted 100 09/01/18 07:16 Seg Neuts % (Manual) 82.0 % (40.0-70.0) H 09/01/18 07:16 Band Neutrophils % 0 % 09/01/18 07:16 Lymphocytes % (Manual) 9.0 % (13.4-35.0) L 09/01/18 07:16 Reactive Lymphs % (Man) 0 % 09/01/18 07:16 Monocytes % (Manual) 5.0 % (0.0-7.3) 09/01/18 07:16 Eosinophils % (Manual) 2.0 % (0.0-4.3) 09/01/18 07:16 Basophils % (Manual) 0 % (0.0-1.8) 09/01/18 07:16 Metamyelocytes % 1.0 % 09/01/18 07:16 Myelocytes % 1.0 % 09/01/18 07:16 Promyelocytes % 0 % 09/01/18 07:16 Blast Cells % 0 % 09/01/18 07:16 Nucleated RBC % Not Reportable 09/01/18 07:16 Seg Neutrophils # Man 7.5 K/mm3 (1.8-7.7) 09/01/18 07:16 Band Neutrophils # 0.0 K/mm3 09/01/18 07:16 Lymphocytes # (Manual) 0.8 K/mm3 (1.2-5.4) L 09/01/18 07:16 Abs React Lymphs (Man) 0.0 K/mm3 09/01/18 07:16 Monocytes # (Manual) 0.5 K/mm3 (0.0-0.8) 09/01/18 07:16 Eosinophils # (Manual) 0.2 K/mm3 (0.0-0.4) 09/01/18 07:16 Basophils # (Manual) 0.0 K/mm3 (0.0-0.1) 09/01/18 07:16 Metamyelocytes # 0.1 K/mm3 09/01/18 07:16 Myelocytes # 0.1 K/mm3 09/01/18 07:16 Promyelocytes # 0.0 K/mm3 09/01/18 07:16 Blast Cells # 0.0 K/mm3 09/01/18 07:16 WBC Morphology Not Reportable 09/01/18 07:16 Hypersegmented Neuts Not Reportable 09/01/18 07:16 Hyposegmented Neuts Not Reportable 09/01/18 07:16 Hypogranular Neuts Not Reportable 09/01/18 07:16 Smudge Cells Not Reportable 09/01/18 07:16 Toxic Granulation Not Reportable 09/01/18 07:16 Toxic Vacuolation Not Reportable 09/01/18 07:16 Dohle Bodies Not Reportable 09/01/18 07:16 Pelger-Huet Anomaly Not Reportable 09/01/18 07:16 Mine Rods Not Reportable 09/01/18 07:16 Platelet Estimate Appears normal 09/01/18 07:16 Clumped Platelets Not Reportable 09/01/18 07:16 Plt Clumps, EDTA Not Reportable 09/01/18 07:16 Large Platelets Not Reportable 09/01/18 07:16 Giant Platelets Not Reportable 09/01/18 07:16 Platelet Satelliting Not Reportable 09/01/18 07:16 Plt Morphology Comment Not Reportable 09/01/18 07:16 RBC Morphology Not Reportable 09/01/18 07:16 Dimorphic RBCs Not Reportable 09/01/18 07:16 Polychromasia Not Reportable 09/01/18 07:16 Hypochromasia Not Reportable 09/01/18 07:16 Poikilocytosis Not Reportable 09/01/18 07:16 Anisocytosis 1+ 09/01/18 07:16 Microcytosis Not Reportable 09/01/18 07:16 Macrocytosis Not Reportable 09/01/18 07:16 Spherocytes Not Reportable 09/01/18 07:16 Pappenheimer Bodies Not Reportable 09/01/18 07:16 Sickle Cells Not Reportable 09/01/18 07:16 Target Cells Not Reportable 09/01/18 07:16 Tear Drop Cells Not Reportable 09/01/18 07:16 Ovalocytes Not Reportable 09/01/18 07:16 Helmet Cells Not Reportable 09/01/18 07:16 [place] Bodies Not Reportable 09/01/18 07:16 [place] Rings Not Reportable 09/01/18 07:16 [place] Cells Not Reportable 09/01/18 07:16 Bite Cells Not Reportable 09/01/18 07:16 Crenated Cell Not Reportable 09/01/18 07:16 Elliptocytes Not Reportable 09/01/18 07:16 Acanthocytes (Spur) Not Reportable 09/01/18 07:16 Rouleaux Not Reportable 09/01/18 07:16 Hemoglobin C Crystals Not Reportable 09/01/18 07:16 Schistocytes Not Reportable 09/01/18 07:16 Malaria parasites Not Reportable 09/01/18 07:16 [place] Bodies Not Reportable 09/01/18 07:16 Hem Pathologist Commnt No 09/01/18 07:16 Sodium 132 mmol/L (137-145) L 09/03/18 07:40 Potassium 4.6 mmol/L (3.6-5.0) 09/03/18 07:40 Chloride 97.8 mmol/L (98-107) L 09/03/18 07:40 Carbon Dioxide 27 mmol/L (22-30) 09/03/18 07:40 Anion Gap 12 mmol/L 09/03/18 07:40 BUN 10 mg/dL (7-17) 09/03/18 07:40 Creatinine 0.8 mg/dL (0.7-1.2) 09/03/18 07:40 Estimated GFR > 60 ml/min 09/03/18 07:40 BUN/Creatinine Ratio 13 % 09/03/18 07:40 Glucose 113 mg/dL (65-100) H 09/03/18 07:40 POC Glucose 102 (70-105) 09/06/18 11:53 Hemoglobin A1c 5.3 % (4-6) 09/02/18 06:53 Osmolality 275 Mosm/kg 09/03/18 11:56 Calcium 8.0 mg/dL (8.4-10.2) L 09/03/18 07:40 Total Bilirubin 0.20 mg/dL (0.1-1.2) 09/01/18 07:16 AST 20 units/L (5-40) 09/01/18 07:16 ALT 10 units/L (7-56) 09/01/18 07:16 Alkaline Phosphatase 55 units/L (35-129) 09/01/18 07:16 Total Protein 5.1 g/dL (6.3-8.2) L 09/01/18 07:16 Albumin 2.4 g/dL (3.9-5) L 09/01/18 07:16 Albumin/Globulin Ratio 0.9 % 09/01/18 07:16 Prealbumin 0.173 g/L (0.200-0.400) L 09/01/18 07:16 Urine Osmolality 312 Mosm/kg 09/03/18 Unknown Urine Sodium 65 mmol/L 09/03/18 Unknown Active Medications - Current Medications Current Medications: Generic Name Dose Route Start Last Admin Trade Name Freq PRN Reason Stop Dose Admin Aspirin 81 mg 09/07/18 10:00 09/08/18 13:37 Halfprin Ec PO 81 mg DAILY CONSTANTINE Administration Atorvastatin Calcium 40 mg 08/31/18 22:00 09/07/18 22:25 Lipitor PO 40 mg QHS CONSTANTINE Administration Enoxaparin Sodium 40 mg 09/01/18 10:00 09/08/18 11:38 Lovenox SUB-Q 40 mg QDAY CONSTANTINE Administration Hydrochlorothiazide 25 mg 09/07/18 08:00 09/08/18 11:39 Hctz PO 25 mg QDAY CONSTANTINE Administration Lisinopril 20 mg 09/07/18 08:00 09/08/18 18:09 Zestril PO Not Given QDAY CONSTANTINE Metoclopramide HCl 5 mg 08/31/18 22:00 09/08/18 18:07 Reglan PO 5 mg ACHS CONSTANTINE Administration Miscellaneous Medication 1 each 09/04/18 10:00 09/08/18 13:38 Non-Formulary PO 1 each DAILY CONSTANTINE Administration Nitrofurantoin Macrocrystals 100 mg 09/01/18 10:00 09/08/18 13:37 Macrobid PO 100 mg DAILY CONSTANTINE Administration Oxycodone/Acetaminophen 1 tab 09/02/18 09:22 09/08/18 01:57 Percocet 5/325 PO 1 tab Q6H PRN Administration Pain, Moderate (4-6) Polyethylene Glycol 17 gm 09/01/18 10:00 09/05/18 10:18 Miralax 3350 PO 17 gm QDAY PRN Administration Constipation Trazodone HCl 50 mg 08/31/18 20:41 09/07/18 23:54 Desyrel PO 50 mg QHS PRN Administration Insomnia Nutrition/Malnutrition Assess - Dietary Evaluation Nutrition/Malnutrition Findings: Nutrition Notes Start: 09/07/18 10:44 Freq: Status: Active Protocol: Document 09/07/18 10:44 EB (Rec: 09/07/18 10:51 EB [id number]) Co-Sign 09/07/18 10:44 LP Nutrition Notes Need for Assessment generated from: LOS Initial or Follow up Brief Note Other Pertinent Diagnosis PMHx breast, colorectal, and bladder CA Current Diet Regular Labs/Tests Reviewed Pertinent Medications Reglan Height 5 ft 5.08 in Weight 81.6 kg Usual Body Weight 81.193 kg [place] Body Weight (kg) 57.00 BMI 29.8 Intake Prior to Admission Fair Weight Status Appropriate Subjective/Other Information Screened for LOS. Pt reports consuming about 75 % of each meal, and states that even when she does not feel hungry she manages to eat an adequate amount. Pt requests Ensure Enlive to be delivered at dinner time, and also that she does not like eggs and instead would like double cereal for breakfast tray. UBW: 179 lbs (81.4 kg). Percent of energy/protein needs met: 100%/100% Burn Absent Trauma Absent Is patient on ventilator? No Is Patient Ambulatory and/or Out of Bed Yes REE-([facility]-ambulatory/OOB) [ 1707.069 NUTR.MSJOOB] Calculation Used for Recommendations [facility] or Additional Notes PRO: 1-1.2 g/kg (81-97 g/day) Fluid: 1 mL/kcal Nutrition Intervention Change Diet Order: Continue current + double portion cereal at breakfast Add Supplement/Snack (indicate name/kcal Ensure Enlive strawberry (with /protein ) dinner tray) Provides kCal: 350 Provides Protein (gm) 20 Goal #1 Continue to meet at least 75% yung and pro needs via PO and ONS intake Revisit per MD consult or patient Sign Off request:
[2018-09-09] MEDS: NON-FORMULARY PO SCH (09:10)
[2018-09-09] MEDS: MACROBID PO SCH (09:11)
[2018-09-09] MEDS: LOVENOX SUB-Q SCH (09:11)
[2018-09-09] MEDS: REGLAN PO SCH ×4 (09:11→21:20)
[2018-09-09] MEDS: HALFPRIN EC PO SCH (09:11)
[2018-09-09] MEDS: ZESTRIL PO SCH (09:12)
[2018-09-09] MEDS: HCTZ PO SCH (09:12)
--- NOTE | 2018-09-09 11:09 | Progress Note ---
Assessment and Plan Assessment and plan: --History of hypertension; well controlled , did not need her blood pressure medications today DC antihypertensives, start on when necessary BP medications --h/o Breast cancer colorectal cancer bladder cancer; status post surgical procedures Continue supportive care --Complex surgical procedure; rehabilitation, physical therapy occupational therapy --History of diabetes; Accu-Chek sliding scale coverage and ADA diet Long-acting insulin if needed --History of macular degeneration; visual impairment supportive care --DVT prophylaxis; Lovenox --Gastroesophageal reflux disease; Protonix Closely monitor the patient and adjust the management as needed Continue PT OT and rehabilitation Plan of care reviewed with the patient and her nurse History Interval history: Patient seen and examined medical records reviewed Patient feels slightly better Blood pressures in the lower range Antihypertensives held Alert awake oriented Vital signs reviewed Hospitalist Physical - Constitutional Vitals: Temp Pulse Resp BP Pulse Ox 98.3 F 85 19 133/65 96 09/09/18 07:25 09/09/18 07:25 09/09/18 07:25 09/09/18 07:25 09/09/18 07:25 General appearance: Present: no acute distress, well-nourished - EENT Eyes: Present: PERRL, EOM intact - Neck Neck: Present: supple, normal ROM - Respiratory Respiratory effort: normal Respiratory: negative: rales, rhonchi, wheezing - Cardiovascular Rhythm: regular Heart Sounds: Present: S1 & S2 - Extremities Extremities: no ischemia, No edema - Abdominal General gastrointestinal: soft, non-tender, non-distended, normal bowel sounds - Integumentary Integumentary: Present: clear, warm - Psychiatric Psychiatric: appropriate mood/affect, cooperative - Neurologic Neurologic: moves all extremities Results - Labs CBC & Chem 7: 09/03/18 07:40 09/03/18 07:40 Labs: Laboratory Last Values WBC 7.7 K/mm3 (4.5-11.0) 09/03/18 07:40 RBC 3.27 M/mm3 (3.65-5.03) L 09/03/18 07:40 Hgb 8.9 gm/dl (10.1-14.3) L 09/03/18 07:40 Hct 27.1 % (30.3-42.9) L 09/03/18 07:40 MCV 83 fl (79-97) 09/03/18 07:40 MCH 27 pg (28-32) L 09/03/18 07:40 MCHC 33 % (30-34) 09/03/18 07:40 RDW 15.8 % (13.2-15.2) H 09/03/18 07:40 Plt Count 429 K/mm3 (140-440) 09/03/18 07:40 Add Manual Diff Complete 09/01/18 07:16 Total Counted 100 09/01/18 07:16 Seg Neuts % (Manual) 82.0 % (40.0-70.0) H 09/01/18 07:16 Band Neutrophils % 0 % 09/01/18 07:16 Lymphocytes % (Manual) 9.0 % (13.4-35.0) L 09/01/18 07:16 Reactive Lymphs % (Man) 0 % 09/01/18 07:16 Monocytes % (Manual) 5.0 % (0.0-7.3) 09/01/18 07:16 Eosinophils % (Manual) 2.0 % (0.0-4.3) 09/01/18 07:16 Basophils % (Manual) 0 % (0.0-1.8) 09/01/18 07:16 Metamyelocytes % 1.0 % 09/01/18 07:16 Myelocytes % 1.0 % 09/01/18 07:16 Promyelocytes % 0 % 09/01/18 07:16 Blast Cells % 0 % 09/01/18 07:16 Nucleated RBC % Not Reportable 09/01/18 07:16 Seg Neutrophils # Man 7.5 K/mm3 (1.8-7.7) 09/01/18 07:16 Band Neutrophils # 0.0 K/mm3 09/01/18 07:16 Lymphocytes # (Manual) 0.8 K/mm3 (1.2-5.4) L 09/01/18 07:16 Abs React Lymphs (Man) 0.0 K/mm3 09/01/18 07:16 Monocytes # (Manual) 0.5 K/mm3 (0.0-0.8) 09/01/18 07:16 Eosinophils # (Manual) 0.2 K/mm3 (0.0-0.4) 09/01/18 07:16 Basophils # (Manual) 0.0 K/mm3 (0.0-0.1) 09/01/18 07:16 Metamyelocytes # 0.1 K/mm3 09/01/18 07:16 Myelocytes # 0.1 K/mm3 09/01/18 07:16 Promyelocytes # 0.0 K/mm3 09/01/18 07:16 Blast Cells # 0.0 K/mm3 09/01/18 07:16 WBC Morphology Not Reportable 09/01/18 07:16 Hypersegmented Neuts Not Reportable 09/01/18 07:16 Hyposegmented Neuts Not Reportable 09/01/18 07:16 Hypogranular Neuts Not Reportable 09/01/18 07:16 Smudge Cells Not Reportable 09/01/18 07:16 Toxic Granulation Not Reportable 09/01/18 07:16 Toxic Vacuolation Not Reportable 09/01/18 07:16 Dohle Bodies Not Reportable 09/01/18 07:16 Pelger-Huet Anomaly Not Reportable 09/01/18 07:16 Mine Rods Not Reportable 09/01/18 07:16 Platelet Estimate Appears normal 09/01/18 07:16 Clumped Platelets Not Reportable 09/01/18 07:16 Plt Clumps, EDTA Not Reportable 09/01/18 07:16 Large Platelets Not Reportable 09/01/18 07:16 Giant Platelets Not Reportable 09/01/18 07:16 Platelet Satelliting Not Reportable 09/01/18 07:16 Plt Morphology Comment Not Reportable 09/01/18 07:16 RBC Morphology Not Reportable 09/01/18 07:16 Dimorphic RBCs Not Reportable 09/01/18 07:16 Polychromasia Not Reportable 09/01/18 07:16 Hypochromasia Not Reportable 09/01/18 07:16 Poikilocytosis Not Reportable 09/01/18 07:16 Anisocytosis 1+ 09/01/18 07:16 Microcytosis Not Reportable 09/01/18 07:16 Macrocytosis Not Reportable 09/01/18 07:16 Spherocytes Not Reportable 09/01/18 07:16 Pappenheimer Bodies Not Reportable 09/01/18 07:16 Sickle Cells Not Reportable 09/01/18 07:16 Target Cells Not Reportable 09/01/18 07:16 Tear Drop Cells Not Reportable 09/01/18 07:16 Ovalocytes Not Reportable 09/01/18 07:16 Helmet Cells Not Reportable 09/01/18 07:16 [place] Bodies Not Reportable 09/01/18 07:16 [place] Rings Not Reportable 09/01/18 07:16 [place] Cells Not Reportable 09/01/18 07:16 Bite Cells Not Reportable 09/01/18 07:16 Crenated Cell Not Reportable 09/01/18 07:16 Elliptocytes Not Reportable 09/01/18 07:16 Acanthocytes (Spur) Not Reportable 09/01/18 07:16 Rouleaux Not Reportable 09/01/18 07:16 Hemoglobin C Crystals Not Reportable 09/01/18 07:16 Schistocytes Not Reportable 09/01/18 07:16 Malaria parasites Not Reportable 09/01/18 07:16 [place] Bodies Not Reportable 09/01/18 07:16 Hem Pathologist Commnt No 09/01/18 07:16 Sodium 132 mmol/L (137-145) L 09/03/18 07:40 Potassium 4.6 mmol/L (3.6-5.0) 09/03/18 07:40 Chloride 97.8 mmol/L (98-107) L 09/03/18 07:40 Carbon Dioxide 27 mmol/L (22-30) 09/03/18 07:40 Anion Gap 12 mmol/L 09/03/18 07:40 BUN 10 mg/dL (7-17) 09/03/18 07:40 Creatinine 0.8 mg/dL (0.7-1.2) 09/03/18 07:40 Estimated GFR > 60 ml/min 09/03/18 07:40 BUN/Creatinine Ratio 13 % 09/03/18 07:40 Glucose 113 mg/dL (65-100) H 09/03/18 07:40 POC Glucose 113 (70-105) H 09/09/18 07:41 Hemoglobin A1c 5.3 % (4-6) 09/02/18 06:53 Osmolality 275 Mosm/kg 09/03/18 11:56 Calcium 8.0 mg/dL (8.4-10.2) L 09/03/18 07:40 Total Bilirubin 0.20 mg/dL (0.1-1.2) 09/01/18 07:16 AST 20 units/L (5-40) 09/01/18 07:16 ALT 10 units/L (7-56) 09/01/18 07:16 Alkaline Phosphatase 55 units/L (35-129) 09/01/18 07:16 Total Protein 5.1 g/dL (6.3-8.2) L 09/01/18 07:16 Albumin 2.4 g/dL (3.9-5) L 09/01/18 07:16 Albumin/Globulin Ratio 0.9 % 09/01/18 07:16 Prealbumin 0.173 g/L (0.200-0.400) L 09/01/18 07:16 Urine Osmolality 312 Mosm/kg 09/03/18 Unknown Urine Sodium 65 mmol/L 09/03/18 Unknown Active Medications - Current Medications Current Medications: Generic Name Dose Route Start Last Admin Trade Name Freq PRN Reason Stop Dose Admin Aspirin 81 mg 09/07/18 10:00 09/09/18 09:11 Halfprin Ec PO 81 mg DAILY CONSTANTINE Administration Atorvastatin Calcium 40 mg 08/31/18 22:00 09/08/18 22:23 Lipitor PO 40 mg QHS CONSTANTINE Administration Enoxaparin Sodium 40 mg 09/01/18 10:00 09/09/18 09:11 Lovenox SUB-Q 40 mg QDAY CONSTANTINE Administration Hydrochlorothiazide 25 mg 09/07/18 08:00 09/09/18 09:12 Hctz PO Not Given QDAY CONSTANTINE Lisinopril 20 mg 09/07/18 08:00 09/09/18 09:12 Zestril PO Not Given QDAY CONSTANTINE Metoclopramide HCl 5 mg 08/31/18 22:00 09/09/18 09:11 Reglan PO 5 mg ACHS CONSTANTINE Administration Miscellaneous Medication 1 each 09/04/18 10:00 09/09/18 09:10 Non-Formulary PO 1 each DAILY CONSTANTINE Administration Nitrofurantoin Macrocrystals 100 mg 09/01/18 10:00 09/09/18 09:11 Macrobid PO 100 mg DAILY CONSTANTINE Administration Oxycodone/Acetaminophen 1 tab 09/02/18 09:22 09/08/18 01:57 Percocet 5/325 PO 1 tab Q6H PRN Administration Pain, Moderate (4-6) Polyethylene Glycol 17 gm 09/01/18 10:00 09/05/18 10:18 Miralax 3350 PO 17 gm QDAY PRN Administration Constipation Trazodone HCl 50 mg 08/31/18 20:41 09/07/18 23:54 Desyrel PO 50 mg QHS PRN Administration Insomnia Nutrition/Malnutrition Assess - Dietary Evaluation Nutrition/Malnutrition Findings: Nutrition Notes Start: 09/07/18 10:44 Freq: Status: Active Protocol: Document 09/07/18 10:44 EB (Rec: 09/07/18 10:51 EB [id number]) Co-Sign 09/07/18 10:44 LP Nutrition Notes Need for Assessment generated from: LOS Initial or Follow up Brief Note Other Pertinent Diagnosis PMHx breast, colorectal, and bladder CA Current Diet Regular Labs/Tests Reviewed Pertinent Medications Reglan Height 5 ft 5.08 in Weight 81.6 kg Usual Body Weight 81.193 kg [place] Body Weight (kg) 57.00 BMI 29.8 Intake Prior to Admission Fair Weight Status Appropriate Subjective/Other Information Screened for LOS. Pt reports consuming about 75 % of each meal, and states that even when she does not feel hungry she manages to eat an adequate amount. Pt requests Ensure Enlive to be delivered at dinner time, and also that she does not like eggs and instead would like double cereal for breakfast tray. UBW: 179 lbs (81.4 kg). Percent of energy/protein needs met: 100%/100% Burn Absent Trauma Absent Is patient on ventilator? No Is Patient Ambulatory and/or Out of Bed Yes REE-([facility]-ambulatory/OOB) [ 1707.069 NUTR.MSJOOB] Calculation Used for Recommendations [facility] Jeor Additional Notes PRO: 1-1.2 g/kg (81-97 g/day) Fluid: 1 mL/kcal Nutrition Intervention Change Diet Order: Continue current + double portion cereal at breakfast Add Supplement/Snack (indicate name/kcal Ensure Enlive strawberry (with /protein ) dinner tray) Provides kCal: 350 Provides Protein (gm) 20 Goal #1 Continue to meet at least 75% yung and pro needs via PO and ONS intake Revisit per MD consult or patient Sign Off request:
[2018-09-09] MEDS ORDERED: APRESOLINE PO PRN (15:09)
[2018-09-09] MEDS: PERCOCET 5/325 PO PRN (23:41)
[2018-09-10] MEDS: LOVENOX SUB-Q SCH (08:01)
[2018-09-10] MEDS: REGLAN PO SCH ×4 (08:02→21:44)
[2018-09-10] MEDS: MACROBID PO SCH (09:17)
[2018-09-10] MEDS: HALFPRIN EC PO SCH (09:17)
[2018-09-10] MEDS: NON-FORMULARY PO SCH (09:18)
--- NOTE | 2018-09-10 19:25 | Progress Note ---
Assessment and Plan Assessment and plan: --Complex surgical procedure; rehabilitation, physical therapy occupational therapy --History of hypertension; well controlled , did not need her blood pressure medications today DC antihypertensives, start on when necessary BP medications --h/o Breast cancer colorectal cancer bladder cancer; status post surgical procedures Continue supportive care --History of diabetes; Accu-Chek sliding scale coverage and ADA diet Long-acting insulin if needed --History of macular degeneration; visual impairment supportive care --DVT prophylaxis; Lovenox --Gastroesophageal reflux disease; Protonix Closely monitor the patient and adjust the management as needed Continue PT OT and rehabilitation Plan of care reviewed with the patient and her nurse History Interval history: Consent and examined this morning medical records reviewed Patient feels slightly better no new complaints Vital signs reviewed Hospitalist Physical - Constitutional Vitals: Temp Pulse Resp BP Pulse Ox 98.7 F 77 19 122/64 98 09/10/18 15:40 09/10/18 15:40 09/10/18 15:40 09/10/18 15:40 09/10/18 15:40 General appearance: Present: no acute distress, well-nourished - EENT Eyes: Present: PERRL, EOM intact - Neck Neck: Present: supple, normal ROM - Respiratory Respiratory effort: normal Respiratory: bilateral: diminished, negative: rales, rhonchi, wheezing - Cardiovascular Rhythm: regular Heart Sounds: Present: S1 & S2 - Extremities Extremities: no ischemia, No edema - Abdominal General gastrointestinal: soft, non-tender, non-distended, normal bowel sounds - Integumentary Integumentary: Present: clear, warm - Psychiatric Psychiatric: appropriate mood/affect, cooperative - Neurologic Neurologic: CNII-XII intact, moves all extremities Results - Labs CBC & Chem 7: 09/03/18 07:40 09/03/18 07:40 Labs: Laboratory Last Values WBC 7.7 K/mm3 (4.5-11.0) 09/03/18 07:40 RBC 3.27 M/mm3 (3.65-5.03) L 09/03/18 07:40 Hgb 8.9 gm/dl (10.1-14.3) L 09/03/18 07:40 Hct 27.1 % (30.3-42.9) L 09/03/18 07:40 MCV 83 fl (79-97) 09/03/18 07:40 MCH 27 pg (28-32) L 09/03/18 07:40 MCHC 33 % (30-34) 09/03/18 07:40 RDW 15.8 % (13.2-15.2) H 09/03/18 07:40 Plt Count 429 K/mm3 (140-440) 09/03/18 07:40 Add Manual Diff Complete 09/01/18 07:16 Total Counted 100 09/01/18 07:16 Seg Neuts % (Manual) 82.0 % (40.0-70.0) H 09/01/18 07:16 Band Neutrophils % 0 % 09/01/18 07:16 Lymphocytes % (Manual) 9.0 % (13.4-35.0) L 09/01/18 07:16 Reactive Lymphs % (Man) 0 % 09/01/18 07:16 Monocytes % (Manual) 5.0 % (0.0-7.3) 09/01/18 07:16 Eosinophils % (Manual) 2.0 % (0.0-4.3) 09/01/18 07:16 Basophils % (Manual) 0 % (0.0-1.8) 09/01/18 07:16 Metamyelocytes % 1.0 % 09/01/18 07:16 Myelocytes % 1.0 % 09/01/18 07:16 Promyelocytes % 0 % 09/01/18 07:16 Blast Cells % 0 % 09/01/18 07:16 Nucleated RBC % Not Reportable 09/01/18 07:16 Seg Neutrophils # Man 7.5 K/mm3 (1.8-7.7) 09/01/18 07:16 Band Neutrophils # 0.0 K/mm3 09/01/18 07:16 Lymphocytes # (Manual) 0.8 K/mm3 (1.2-5.4) L 09/01/18 07:16 Abs React Lymphs (Man) 0.0 K/mm3 09/01/18 07:16 Monocytes # (Manual) 0.5 K/mm3 (0.0-0.8) 09/01/18 07:16 Eosinophils # (Manual) 0.2 K/mm3 (0.0-0.4) 09/01/18 07:16 Basophils # (Manual) 0.0 K/mm3 (0.0-0.1) 09/01/18 07:16 Metamyelocytes # 0.1 K/mm3 09/01/18 07:16 Myelocytes # 0.1 K/mm3 09/01/18 07:16 Promyelocytes # 0.0 K/mm3 09/01/18 07:16 Blast Cells # 0.0 K/mm3 09/01/18 07:16 WBC Morphology Not Reportable 09/01/18 07:16 Hypersegmented Neuts Not Reportable 09/01/18 07:16 Hyposegmented Neuts Not Reportable 09/01/18 07:16 Hypogranular Neuts Not Reportable 09/01/18 07:16 Smudge Cells Not Reportable 09/01/18 07:16 Toxic Granulation Not Reportable 09/01/18 07:16 Toxic Vacuolation Not Reportable 09/01/18 07:16 Dohle Bodies Not Reportable 09/01/18 07:16 Pelger-Huet Anomaly Not Reportable 09/01/18 07:16 Mine Rods Not Reportable 09/01/18 07:16 Platelet Estimate Appears normal 09/01/18 07:16 Clumped Platelets Not Reportable 09/01/18 07:16 Plt Clumps, EDTA Not Reportable 09/01/18 07:16 Large Platelets Not Reportable 09/01/18 07:16 Giant Platelets Not Reportable 09/01/18 07:16 Platelet Satelliting Not Reportable 09/01/18 07:16 Plt Morphology Comment Not Reportable 09/01/18 07:16 RBC Morphology Not Reportable 09/01/18 07:16 Dimorphic RBCs Not Reportable 09/01/18 07:16 Polychromasia Not Reportable 09/01/18 07:16 Hypochromasia Not Reportable 09/01/18 07:16 Poikilocytosis Not Reportable 09/01/18 07:16 Anisocytosis 1+ 09/01/18 07:16 Microcytosis Not Reportable 09/01/18 07:16 Macrocytosis Not Reportable 09/01/18 07:16 Spherocytes Not Reportable 09/01/18 07:16 Pappenheimer Bodies Not Reportable 09/01/18 07:16 Sickle Cells Not Reportable 09/01/18 07:16 Target Cells Not Reportable 09/01/18 07:16 Tear Drop Cells Not Reportable 09/01/18 07:16 Ovalocytes Not Reportable 09/01/18 07:16 Helmet Cells Not Reportable 09/01/18 07:16 Arellano-Maurice Bodies Not Reportable 09/01/18 07:16 [place] Rings Not Reportable 09/01/18 07:16 Fadi Cells Not Reportable 09/01/18 07:16 Bite Cells Not Reportable 09/01/18 07:16 Crenated Cell Not Reportable 09/01/18 07:16 Elliptocytes Not Reportable 09/01/18 07:16 Acanthocytes (Spur) Not Reportable 09/01/18 07:16 Rouleaux Not Reportable 09/01/18 07:16 Hemoglobin C Crystals Not Reportable 09/01/18 07:16 Schistocytes Not Reportable 09/01/18 07:16 Malaria parasites Not Reportable 09/01/18 07:16 [place] Bodies Not Reportable 09/01/18 07:16 Hem Pathologist Commnt No 09/01/18 07:16 Sodium 132 mmol/L (137-145) L 09/03/18 07:40 Potassium 4.6 mmol/L (3.6-5.0) 09/03/18 07:40 Chloride 97.8 mmol/L (98-107) L 09/03/18 07:40 Carbon Dioxide 27 mmol/L (22-30) 09/03/18 07:40 Anion Gap 12 mmol/L 09/03/18 07:40 BUN 10 mg/dL (7-17) 09/03/18 07:40 Creatinine 0.8 mg/dL (0.7-1.2) 09/03/18 07:40 Estimated GFR > 60 ml/min 09/03/18 07:40 BUN/Creatinine Ratio 13 % 09/03/18 07:40 Glucose 113 mg/dL (65-100) H 09/03/18 07:40 POC Glucose 113 (70-105) H 09/09/18 07:41 Hemoglobin A1c 5.3 % (4-6) 09/02/18 06:53 Osmolality 275 Mosm/kg 09/03/18 11:56 Calcium 8.0 mg/dL (8.4-10.2) L 09/03/18 07:40 Total Bilirubin 0.20 mg/dL (0.1-1.2) 09/01/18 07:16 AST 20 units/L (5-40) 09/01/18 07:16 ALT 10 units/L (7-56) 09/01/18 07:16 Alkaline Phosphatase 55 units/L (35-129) 09/01/18 07:16 Total Protein 5.1 g/dL (6.3-8.2) L 09/01/18 07:16 Albumin 2.4 g/dL (3.9-5) L 09/01/18 07:16 Albumin/Globulin Ratio 0.9 % 09/01/18 07:16 Prealbumin 0.173 g/L (0.200-0.400) L 09/01/18 07:16 Urine Osmolality 312 Mosm/kg 09/03/18 Unknown Urine Sodium 65 mmol/L 09/03/18 Unknown Active Medications - Current Medications Current Medications: Generic Name Dose Route Start Last Admin Trade Name Freq PRN Reason Stop Dose Admin Aspirin 81 mg 09/07/18 10:00 09/10/18 09:17 Halfprin Ec PO 81 mg DAILY CONSTANTINE Administration Atorvastatin Calcium 40 mg 08/31/18 22:00 09/09/18 21:20 Lipitor PO 40 mg QHS CONSTANTINE Administration Enoxaparin Sodium 40 mg 09/01/18 10:00 09/10/18 08:01 Lovenox SUB-Q 40 mg QDAY CONSTANTIEN Administration Hydralazine HCl 10 mg 09/09/18 15:09 Apresoline PO Q6H PRN HTN >150/90 Metoclopramide HCl 5 mg 08/31/18 22:00 09/10/18 16:46 Reglan PO 5 mg ACHS CONSTANTINE Administration Miscellaneous Medication 1 each 09/04/18 10:00 09/10/18 09:18 Non-Formulary PO 1 each DAILY CONSTANTINE Administration Nitrofurantoin Macrocrystals 100 mg 09/01/18 10:00 09/10/18 09:17 Macrobid PO 100 mg DAILY CONSTANTINE Administration Oxycodone/Acetaminophen 1 tab 09/02/18 09:22 09/09/18 23:41 Percocet 5/325 PO 1 tab Q6H PRN Administration Pain, Moderate (4-6) Polyethylene Glycol 17 gm 09/01/18 10:00 04/09/19 10:18 Miralax 3350 PO 17 gm QDAY PRN Administration Constipation Trazodone HCl 50 mg 08/31/18 20:41 09/07/18 23:54 Desyrel PO 50 mg QHS PRN Administration Insomnia Nutrition/Malnutrition Assess - Dietary Evaluation Nutrition/Malnutrition Findings: Nutrition Notes Start: 09/07/18 10:44 Freq: Status: Active Protocol: Document 09/07/18 10:44 EB (Rec: 09/07/18 10:51 EB [id number]) Co-Sign 09/07/18 10:44 LP Nutrition Notes Need for Assessment generated from: LOS Initial or Follow up Brief Note Other Pertinent Diagnosis PMHx breast, colorectal, and bladder CA Current Diet Regular Labs/Tests Reviewed Pertinent Medications Reglan Height 5 ft 5.08 in Weight 81.6 kg Usual Body Weight 81.193 kg [place] Body Weight (kg) 57.00 BMI 29.8 Intake Prior to Admission Fair Weight Status Appropriate Subjective/Other Information Screened for LOS. Pt reports consuming about 75 % of each meal, and states that even when she does not feel hungry she manages to eat an adequate amount. Pt requests Ensure Enlive to be delivered at dinner time, and also that she does not like eggs and instead would like double cereal for breakfast tray. UBW: 179 lbs (81.4 kg). Percent of energy/protein needs met: 100%/100% Burn Absent Trauma Absent Is patient on ventilator? No Is Patient Ambulatory and/or Out of Bed Yes REE-([place]. Jeor-ambulatory/OOB) [ 1707.069 NUTR.MSJOOB] Calculation Used for Recommendations [place] or Additional Notes PRO: 1-1.2 g/kg (81-97 g/day) Fluid: 1 mL/kcal Nutrition Intervention Change Diet Order: Continue current + double portion cereal at breakfast Add Supplement/Snack (indicate name/kcal Ensure Enlive strawberry (with /protein ) dinner tray) Provides kCal: 350 Provides Protein (gm) 20 Goal #1 Continue to meet at least 75% yung and pro needs via PO and ONS intake Revisit per MD consult or patient Sign Off request:
[2018-09-10] MEDS: PERCOCET 5/325 PO PRN (21:43)
[2018-09-11] MEDS: LOVENOX SUB-Q SCH (07:54)
[2018-09-11] MEDS: MIRALAX 3350 PO PRN (07:55)
[2018-09-11] MEDS: REGLAN PO SCH ×4 (07:55→21:45)
[2018-09-11] MEDS: MACROBID PO SCH ×2 (07:55→10:00)
[2018-09-11] MEDS: HALFPRIN EC PO SCH ×2 (07:55→10:00)
[2018-09-11] MEDS: NON-FORMULARY PO SCH ×2 (07:57→10:00)
[2018-09-11] MEDS: PERCOCET 5/325 PO PRN (16:59)
--- NOTE | 2018-09-11 17:20 | Progress Note ---
Assessment and Plan Assessment and plan: 73-year-old female with a past history of breast cancer, colorectal cancer and bladder cancer underwent surgical repair of a large parastomal hernia and radical cystectomy with total abdominal hysterectomy, bilateral salpingo- oophorectomy and anterior vaginectomy. She had a complex abdominal wall reconstruction with repair for the peristomal hernia as well as a ileal conduit creation. She has macular degeneration and will need to compensate for the visual impairment, admitted to the rehabilitation unit for rehabilitation Hospitalist service consulting for medical management; --Complex surgical procedure; supportive care, rehabilitation, physical therapy occupational therapy --History of hypertension; well controlled , Did not need any blood pressure medications, closely monitor --History of diabetes; not needing any coverage A1c 5.3 discontinue Accu-Cheks and sliding scale coverage --History of macular degeneration; visual impairment supportive care --Severe malnutrition/hypoalbuminemia; nutrition supplements --DVT prophylaxis; Lovenox --Gastroesophageal reflux disease; Protonix Continue PT OT and rehabilitation Plan of care reviewed with the patient and her nurse History Interval history: Patient seen and examined medical records reviewed Patient tolerated physical therapy today Patient is cheerful , no new complaints Vital signs noted Hospitalist Physical - Constitutional Vitals: Temp Pulse Resp BP Pulse Ox 98.3 F 100 H 18 119/57 91 09/11/18 15:33 09/11/18 15:33 09/11/18 15:33 09/11/18 15:33 09/11/18 11:28 General appearance: Present: no acute distress, well-nourished - EENT Eyes: Present: PERRL, EOM intact - Neck Neck: Present: supple, normal ROM - Respiratory Respiratory effort: normal Respiratory: bilateral: diminished, negative: rales, rhonchi, wheezing - Cardiovascular Rhythm: regular Heart Sounds: Present: S1 & S2 - Extremities Extremities: no ischemia, No edema - Abdominal General gastrointestinal: soft, non-tender, non-distended, normal bowel sounds - Integumentary Integumentary: Present: clear, warm - Psychiatric Psychiatric: appropriate mood/affect, cooperative - Neurologic Neurologic: CNII-XII intact, moves all extremities Results - Labs CBC & Chem 7: 09/03/18 07:40 09/03/18 07:40 Labs: Laboratory Last Values WBC 7.7 K/mm3 (4.5-11.0) 09/03/18 07:40 RBC 3.27 M/mm3 (3.65-5.03) L 09/03/18 07:40 Hgb 8.9 gm/dl (10.1-14.3) L 09/03/18 07:40 Hct 27.1 % (30.3-42.9) L 09/03/18 07:40 MCV 83 fl (79-97) 09/03/18 07:40 MCH 27 pg (28-32) L 09/03/18 07:40 MCHC 33 % (30-34) 09/03/18 07:40 RDW 15.8 % (13.2-15.2) H 09/03/18 07:40 Plt Count 429 K/mm3 (140-440) 09/03/18 07:40 Add Manual Diff Complete 09/01/18 07:16 Total Counted 100 09/01/18 07:16 Seg Neuts % (Manual) 82.0 % (40.0-70.0) H 09/01/18 07:16 Band Neutrophils % 0 % 09/01/18 07:16 Lymphocytes % (Manual) 9.0 % (13.4-35.0) L 09/01/18 07:16 Reactive Lymphs % (Man) 0 % 09/01/18 07:16 Monocytes % (Manual) 5.0 % (0.0-7.3) 09/01/18 07:16 Eosinophils % (Manual) 2.0 % (0.0-4.3) 09/01/18 07:16 Basophils % (Manual) 0 % (0.0-1.8) 09/01/18 07:16 Metamyelocytes % 1.0 % 09/01/18 07:16 Myelocytes % 1.0 % 09/01/18 07:16 Promyelocytes % 0 % 09/01/18 07:16 Blast Cells % 0 % 09/01/18 07:16 Nucleated RBC % Not Reportable 09/01/18 07:16 Seg Neutrophils # Man 7.5 K/mm3 (1.8-7.7) 09/01/18 07:16 Band Neutrophils # 0.0 K/mm3 09/01/18 07:16 Lymphocytes # (Manual) 0.8 K/mm3 (1.2-5.4) L 09/01/18 07:16 Abs React Lymphs (Man) 0.0 K/mm3 09/01/18 07:16 Monocytes # (Manual) 0.5 K/mm3 (0.0-0.8) 09/01/18 07:16 Eosinophils # (Manual) 0.2 K/mm3 (0.0-0.4) 09/01/18 07:16 Basophils # (Manual) 0.0 K/mm3 (0.0-0.1) 09/01/18 07:16 Metamyelocytes # 0.1 K/mm3 09/01/18 07:16 Myelocytes # 0.1 K/mm3 09/01/18 07:16 Promyelocytes # 0.0 K/mm3 09/01/18 07:16 Blast Cells # 0.0 K/mm3 09/01/18 07:16 WBC Morphology Not Reportable 09/01/18 07:16 Hypersegmented Neuts Not Reportable 09/01/18 07:16 Hyposegmented Neuts Not Reportable 09/01/18 07:16 Hypogranular Neuts Not Reportable 09/01/18 07:16 Smudge Cells Not Reportable 09/01/18 07:16 Toxic Granulation Not Reportable 09/01/18 07:16 Toxic Vacuolation Not Reportable 09/01/18 07:16 Dohle Bodies Not Reportable 09/01/18 07:16 Pelger-Huet Anomaly Not Reportable 09/01/18 07:16 Mine Rods Not Reportable 09/01/18 07:16 Platelet Estimate Appears normal 09/01/18 07:16 Clumped Platelets Not Reportable 09/01/18 07:16 Plt Clumps, EDTA Not Reportable 09/01/18 07:16 Large Platelets Not Reportable 09/01/18 07:16 Giant Platelets Not Reportable 09/01/18 07:16 Platelet Satelliting Not Reportable 09/01/18 07:16 Plt Morphology Comment Not Reportable 09/01/18 07:16 RBC Morphology Not Reportable 09/01/18 07:16 Dimorphic RBCs Not Reportable 09/01/18 07:16 Polychromasia Not Reportable 09/01/18 07:16 Hypochromasia Not Reportable 09/01/18 07:16 Poikilocytosis Not Reportable 09/01/18 07:16 Anisocytosis 1+ 04/05/19 07:16 Microcytosis Not Reportable 09/01/18 07:16 Macrocytosis Not Reportable 09/01/18 07:16 Spherocytes Not Reportable 09/01/18 07:16 Pappenheimer Bodies Not Reportable 09/01/18 07:16 Sickle Cells Not Reportable 09/01/18 07:16 Target Cells Not Reportable 09/01/18 07:16 Tear Drop Cells Not Reportable 09/01/18 07:16 Ovalocytes Not Reportable 09/01/18 07:16 Helmet Cells Not Reportable 09/01/18 07:16 Arellano-Keats Bodies Not Reportable 09/01/18 07:16 [place] Rings Not Reportable 09/01/18 07:16 Fadi Cells Not Reportable 09/01/18 07:16 Bite Cells Not Reportable 09/01/18 07:16 Crenated Cell Not Reportable 09/01/18 07:16 Elliptocytes Not Reportable 09/01/18 07:16 Acanthocytes (Spur) Not Reportable 09/01/18 07:16 Rouleaux Not Reportable 09/01/18 07:16 Hemoglobin C Crystals Not Reportable 09/01/18 07:16 Schistocytes Not Reportable 09/01/18 07:16 Malaria parasites Not Reportable 09/01/18 07:16 Fortunato Bodies Not Reportable 09/01/18 07:16 Hem Pathologist Commnt No 09/01/18 07:16 Sodium 132 mmol/L (137-145) L 09/03/18 07:40 Potassium 4.6 mmol/L (3.6-5.0) 09/03/18 07:40 Chloride 97.8 mmol/L (98-107) L 09/03/18 07:40 Carbon Dioxide 27 mmol/L (22-30) 09/03/18 07:40 Anion Gap 12 mmol/L 09/03/18 07:40 BUN 10 mg/dL (7-17) 09/03/18 07:40 Creatinine 0.8 mg/dL (0.7-1.2) 09/03/18 07:40 Estimated GFR > 60 ml/min 09/03/18 07:40 BUN/Creatinine Ratio 13 % 09/03/18 07:40 Glucose 113 mg/dL (65-100) H 09/03/18 07:40 POC Glucose 113 (70-105) H 09/09/18 07:41 Hemoglobin A1c 5.3 % (4-6) 09/02/18 06:53 Osmolality 275 Mosm/kg 09/03/18 11:56 Calcium 8.0 mg/dL (8.4-10.2) L 09/03/18 07:40 Total Bilirubin 0.20 mg/dL (0.1-1.2) 09/01/18 07:16 AST 20 units/L (5-40) 09/01/18 07:16 ALT 10 units/L (7-56) 09/01/18 07:16 Alkaline Phosphatase 55 units/L (35-129) 09/01/18 07:16 Total Protein 5.1 g/dL (6.3-8.2) L 09/01/18 07:16 Albumin 2.4 g/dL (3.9-5) L 09/01/18 07:16 Albumin/Globulin Ratio 0.9 % 09/01/18 07:16 Prealbumin 0.173 g/L (0.200-0.400) L 09/01/18 07:16 Urine Osmolality 312 Mosm/kg 09/03/18 Unknown Urine Sodium 65 mmol/L 09/03/18 Unknown Active Medications - Current Medications Current Medications: Generic Name Dose Route Start Last Admin Trade Name Freq PRN Reason Stop Dose Admin Aspirin 81 mg 09/07/18 10:00 09/11/18 10:00 Halfprin Ec PO Not Given DAILY CONSTANTINE Atorvastatin Calcium 40 mg 08/31/18 22:00 09/10/18 21:43 Lipitor PO 40 mg QHS CONSTANTINE Administration Enoxaparin Sodium 40 mg 09/01/18 10:00 09/11/18 07:54 Lovenox SUB-Q 40 mg QDAY CONSTANTINE Administration Hydralazine HCl 10 mg 09/09/18 15:09 Apresoline PO Q6H PRN HTN >150/90 Metoclopramide HCl 5 mg 08/31/18 22:00 09/11/18 16:24 Reglan PO 5 mg ACHS CONSTANTINE Administration Miscellaneous Medication 1 each 09/04/18 10:00 09/11/18 10:00 Non-Formulary PO Not Given DAILY CONSTANTINE Nitrofurantoin Macrocrystals 100 mg 09/01/18 10:00 09/11/18 10:00 Macrobid PO Not Given DAILY CONSTANTINE Oxycodone/Acetaminophen 1 tab 09/02/18 09:22 09/11/18 16:59 Percocet 5/325 PO 1 tab Q6H PRN Administration Pain, Moderate (4-6) Polyethylene Glycol 17 gm 09/01/18 10:00 09/05/18 10:18 Miralax 3350 PO 17 gm QDAY PRN Administration Constipation Trazodone HCl 50 mg 08/31/18 20:41 09/07/18 23:54 Desyrel PO 50 mg QHS PRN Administration Insomnia Nutrition/Malnutrition Assess - Dietary Evaluation Nutrition/Malnutrition Findings: Nutrition Notes Start: 09/07/18 10:44 Freq: Status: Active Protocol: Document 09/07/18 10:44 EB (Rec: 09/07/18 10:51 EB [id number]) Co-Sign 09/07/18 10:44 LP Nutrition Notes Need for Assessment generated from: LOS Initial or Follow up Brief Note Other Pertinent Diagnosis PMHx breast, colorectal, and bladder CA Current Diet Regular Labs/Tests Reviewed Pertinent Medications Reglan Height 5 ft 5.08 in Weight 81.6 kg Usual Body Weight 81.193 kg [place] Body Weight (kg) 57.00 BMI 29.8 Intake Prior to Admission Fair Weight Status Appropriate Subjective/Other Information Screened for LOS. Pt reports consuming about 75 % of each meal, and states that even when she does not feel hungry she manages to eat an adequate amount. Pt requests Ensure Enlive to be delivered at dinner time, and also that she does not like eggs and instead would like double cereal for breakfast tray. UBW: 179 lbs (81.4 kg). Percent of energy/protein needs met: 100%/100% Burn Absent Trauma Absent Is patient on ventilator? No Is Patient Ambulatory and/or Out of Bed Yes REE-([place]-St. Jeor-ambulatory/OOB) [ 1707.069 NUTR.MSJOOB] Calculation Used for Recommendations [place] Jeor Additional Notes PRO: 1-1.2 g/kg (81-97 g/day) Fluid: 1 mL/kcal Nutrition Intervention Change Diet Order: Continue current + double portion cereal at breakfast Add Supplement/Snack (indicate name/kcal Ensure Enlive strawberry (with /protein ) dinner tray) Provides kCal: 350 Provides Protein (gm) 20 Goal #1 Continue to meet at least 75% yung and pro needs via PO and ONS intake Revisit per MD consult or patient Sign Off request:
[2018-09-12] MEDS: REGLAN PO SCH ×4 (08:38→21:56)
[2018-09-12] MEDS: LOVENOX SUB-Q SCH (08:38)
[2018-09-12] MEDS: NON-FORMULARY PO SCH (09:02)
[2018-09-12] MEDS: HALFPRIN EC PO SCH (09:02)
[2018-09-12] MEDS: MACROBID PO SCH (09:02)
--- NOTE | 2018-09-12 09:45 | Progress Note ---
Subjective Date of service: 09/12/18 Principal diagnosis: Debility s/p bladder cancer resection Interval history: 73-year-old female with a past history of breast cancer, colorectal cancer and bladder cancer underwent surgical repair of a large parastomal hernia and radical cystectomy with total abdominal hysterectomy, bilateral salpingo- oophorectomy and anterior vaginectomy. She had a complex abdominal wall reconstruction with repair for the peristomal hernia as well as a ileal conduit creation. Patient has tolerated the procedures well. She has macular degeneration and will need to compensate for the visual impairment. Patient is participating in therapy and making reasonable progress. Taking rest breaks as needed. +ostomy output. Difficulty sleeping at times. Decreased appetite but improving, attempting supplements. Encouraged her to increase protein intake. Denies palpitations, dyspnea, cough, N/V, or joint pain. BP steady, low on occasion. Continue to monitor for need to return to antihypertensive use, has been off of them for some time before hospitalization. Will continue to monitor. Follow up with Urology scheduled for tomorrow. Discussed in Team Conference. Making reasonable progress but it seems she is limiting herself. Had discussion with her and she agreed to allow us to push her. Has a tendency to stop at first point of a challenging task. Discussed discharge options if she does not improve to independence level and determined SNF as best option. Will continue to progress to independence if possible. All records, vitals, labs and medications were reviewed. No other issues per patient, nursing or therapy. Objective - Exam Narrative Exam: MUSCULOSKELETAL SPECIALTY EXAM CONSTITUTIONAL: Well developed, well nourished, appropriately groomed, NAD EENT: EOMI. Hearing intact to soft voice RESPIRATORY: Clear to ascultation bilaterally, no increased work of breathing CARDIOVASCULAR: Regular Rate/ Rhythm, no swelling, edema or tenderness in BUE or BLE. All extrem ities warm. GI: + bowel sounds, soft, NTTP, nondistended. Ostomy (L) and ileal conduit (R) in pl valente and functioning. Blood tinged output from ileal conduit stable INTEGUMENTARY: Normal, no lesion, rash, masses or bruising noted in extremities. MUSCULOSKELETAL: BUE and BLE normal without defect, crepitus, subluxation, effusion, arthritic changes or TTP. BUE 4/5, good ROM, with normal tone. BLE 4/5 good ROM, with normal tone NEURO: CN 2-12 grossly intact. Sensation intact in all extremities. No tremor noted in 4 extremities. POSTURE and GAIT: Sitting posture good. Balance appears reasonable. Gait slow but stable with RW. PSYCH: Alert, orientated x3, affect appears normal. Insight appears intact. - Constitutional Vitals: Vital Signs - 12hr 09/12/18 09/12/18 07:00 08:03 Temperature 36.3 C L Pulse Rate 89 Respiratory 20 Rate Respiratory 16 Rate [Abdomen] Blood Pressure 139/68 [Left] O2 Sat by Pulse 98 Oximetry - Allied health notes Allied health notes reviewed: nursing, PT, OT FIMS assessment as documented by PT/OT/ST: Grooming Patient cleans teeth/dentures: Yes Patient leslie/brushes hair: Yes Patient washes, rinses and Yes dries face: Patient washes, rinses and Yes dries hands: Patient shaves: No Patient applies make-up: No Patient performs (no make-up/ 2/4 (50%) shaving): Grooming FIM Score 4. Minimal Assistance (Patient = 75% or more. Needs touching.) Social interaction/Memory/Problem solving Social Interaction FIM Score 6. Mod. [place] (Mostly appropriate. May need meds. No supv.) Memory FIM Score 6. Modified [place](Mild difficulty remembering people/routines.) Problem Solving FIM Score 5. Supervision (Needs cueing <10% to solve routine problems.) Transfers Mode of Locomotion: Wheelchair Bed/Chair/Wheelchair Transfers 5. Supervision (Needs supv. or set-up for FIM Score sliding board, foot rests.) Locomotion- Stairs Device used on Stairs Handrail/s Number of Stairs Ascended/ 4 Descended Patient used handrail/support: Yes Stairs FIM Score 2. Maximal Assistance (Patient = 25% or more, 4- 6 stairs.) Locomotion- walk/wheelchair Most Frequent Mode of Walking Locomotion: Ambulation Distance 192 Walking FIM Score 4. Minimal Assistance (Patient = 75% or more. Minimum of 150 ft.) Wheelchair Propulsion Distance 160 Wheelchair FIM Score 5. Supervision (Minimum 150 ft. supv./cues or 50 ft. independently.) Eating Eating FIM Score 5. Supervision/Set-Up (Needs help w/ containers, cutting meat, etc.) Dressing-Upper body Patient retrieves clothing Yes items: Upper Body Dressing FIM Score 3. Moderate Assistance (Patient = 50% or more) Dressing-lower body Patient retrieves clothing No items: Lower Body Dressing FIM Score 4. Minimal Assistance (Patient = 75% or more. Needs touching.) - Labs CBC & Chem 7: 09/03/18 07:40 09/03/18 07:40 Assessment and Plan Z48.815 / Z48.816 s/p colorectal cancer and bladder cancer with radical cystectomy and parastomal repair: monitor wound sites and ostomy output. Macrobid ppx until stents are removed at follow up. R53.81 Debility: PT & OT will work on improving overall functional status to improve participation with ADLs, mobility and social involvement. E44.0 Moderate Protein malnutrition: Allergist/Pediatric Pulmonologist consult, monitor for improvement E87.1 Hyponatremia: Check labs (Urine and Serum Osm and Urine Na), OSH labs reviewed and showed hyponatremia stable. G47.00 Insomnia: trazodone prn, monitor Z73.6 ADL dysfunction: OT will work on improving ability to perform ADLs (including assistive devices) to increase independence and decrease caregiver burden and improve functional transfers and mobility training. R26.2 Difficulty walking: PT will work on gait training and proper use of assistive devices and advance as appropriate to use of stairs and outside ambulation on uneven surfaces. R26.81 Unsteadiness on feet: PT will work on improving static and dynamic sitting and standing balance as well as proper use of assistive devices to decrease risk of falls. R26.89 Abnormality of gait: PT will work to improve safety and efficiency of gait through neuromotor training and gait training along with instruction on proper use of assistive devices. M62.81 Muscle weakness: PT & OT will work on strengthening exercises to improve functional strength including mixture of closed and open kinetic chain exercise s. R53.83 Fatigue: PT & OT will work on improving endurance through aerobic exercises and therapeutic activity while monitoring patients tolerance for activity and vital signs as needed. N18.9 CKD: avoid nephrotoxic medication, monitor renal function E78.5 Hyperlipidemia: continue statin HTN: monitor and restart medications if needed. Ok so far DM: recheck A1c 5.3. Will remove diagnosis Macular Degeneration: Avastin every 6 wks, next dose at end of month IM consulted for medical management. DVT ppx: lovenox Pain: Continue physical modalities in therapy and pain medications as needed to achieve functional pain control. Sleep: Monitor and address as needed. Trazodone ordered. Bowel: Monitor and address as needed. Appetite: Monitor and address as needed. Discharge planning: Pending therapy progress and care plan meeting. Will continue discussion with therapy team, SW, patient and family. Restrictions/ Precautions: Falls, abdominal binder/precautions WB status: FWB Functional Hx: ADLs: Independent Cognition: Independent Mobility: No AD Barriers to Discharge: Decreased mobility and ability to perform self care, balance deficits, weakness Estimated Length of Stay: 14-21 days Discharge Destination: Home with family
--- NOTE | 2018-09-12 14:37 | Progress Note ---
Assessment and Plan --Complex surgical procedure; supportive care, rehabilitation, physical therapy occupational therapy --History of hypertension; well controlled , Did not need any blood pressure medications, closely monitor --History of diabetes; not needing any coverage A1c 5.3 discontinue Accu-Cheks and sliding scale coverage --History of macular degeneration; visual impairment supportive care --Severe malnutrition/hypoalbuminemia; nutrition supplements --DVT prophylaxis; Lovenox --Gastroesophageal reflux disease; Protonix Continue PT OT and rehabilitation Plan of care reviewed with the patient and her nurse brief History: 73-year-old female with a past history of breast cancer, colorectal cancer and bladder cancer underwent surgical repair of a large parastomal hernia and radical cystectomy with total abdominal hysterectomy, bilateral salpingo- oophorectomy and anterior vaginectomy. She had a complex abdominal wall reconstruction with repair for the peristomal hernia as well as a ileal conduit creation. She has macular degeneration and will need to compensate for the visual impairment, admitted to the rehabilitation unit for rehabilitation Hospitalist service consulting for medical management; Hospitalist Physical General appearance: Present: no acute distress, well-nourished - EENT Eyes: Present: PERRL, EOM intact - Neck Neck: Present: supple, normal ROM - Respiratory Respiratory effort: normal Respiratory: bilateral: diminished, negative: rales, rhonchi, wheezing - Cardiovascular Rhythm: regular Heart Sounds: Present: S1 & S2 - Extremities Extremities: no ischemia, No edema - Abdominal General gastrointestinal: soft, non-tender, non-distended, normal bowel sounds - Integumentary Integumentary: Present: clear, warm - Psychiatric Psychiatric: appropriate mood/affect, cooperative - Neurologic Neurologic: CNII-XII intact, moves all extremities Subjective Date of service: 09/12/18 Principal diagnosis: Debility s/p bladder cancer resection Interval history: Patient seen and examined medical records reviewed Patient is cheerful , no new complaints Vital signs noted Objective - Constitutional Vitals: Vital Signs - 12hr 09/12/18 09/12/18 09/12/18 07:00 08:03 12:00 Temperature 97.3 F L 97.1 F L Pulse Rate 89 96 H Respiratory 20 16 Rate Respiratory 16 Rate [Abdomen] Blood Pressure 139/68 126/64 [Left] O2 Sat by Pulse 98 97 Oximetry - Labs CBC & Chem 7: 09/03/18 07:40 09/03/18 07:40
[2018-09-13] MEDS: PERCOCET 5/325 PO PRN ×2 (01:02→11:23)
[2018-09-13] MEDS: REGLAN PO SCH ×4 (08:40→22:18)
[2018-09-13] MEDS: LOVENOX SUB-Q SCH (08:40)
[2018-09-13] MEDS: NON-FORMULARY PO SCH (10:25)
[2018-09-13] MEDS: HALFPRIN EC PO SCH (10:26)
[2018-09-13] MEDS: MACROBID PO SCH (10:26)
--- NOTE | 2018-09-13 16:58 | Progress Note ---
Assessment and Plan --Complex surgical procedure; supportive care, rehabilitation, physical therapy occupational therapy --History of hypertension; well controlled , Did not need any blood pressure medications, closely monitor --History of diabetes; not needing any coverage A1c 5.3 discontinue Accu-Cheks and sliding scale coverage --History of macular degeneration; visual impairment supportive care --Severe malnutrition/hypoalbuminemia; nutrition supplements --DVT prophylaxis; Lovenox --Gastroesophageal reflux disease; Protonix Continue PT OT and rehabilitation brief History: 73-year-old female with a past history of breast cancer, colorectal cancer and bladder cancer underwent surgical repair of a large parastomal hernia and radical cystectomy with total abdominal hysterectomy, bilateral salpingo- oophorectomy and anterior vaginectomy. She had a complex abdominal wall reconstruction with repair for the peristomal hernia as well as a ileal conduit creation. She has macular degeneration and will need to compensate for the visual impairment, admitted to the rehabilitation unit for rehabilitation Hospitalist service consulting for medical management; Hospitalist Physical General appearance: Present: no acute distress, well-nourished - EENT Eyes: Present: PERRL, EOM intact - Neck Neck: Present: supple, normal ROM - Respiratory Respiratory effort: normal Respiratory: bilateral: diminished, negative: rales, rhonchi, wheezing - Cardiovascular Rhythm: regular Heart Sounds: Present: S1 & S2 - Extremities Extremities: no ischemia, No edema - Abdominal General gastrointestinal: soft, non-tender, non-distended, normal bowel sounds - Integumentary Integumentary: Present: clear, warm - Psychiatric Psychiatric: appropriate mood/affect, cooperative - Neurologic Neurologic: CNII-XII intact, moves all extremities Subjective Date of service: 09/13/18 Principal diagnosis: Debility s/p bladder cancer resection Interval history: Patient seen and examined medical records reviewed Patient is cheerful , no new complaints Vital signs noted Objective - Constitutional Vitals: Vital Signs - 12hr 09/13/18 09/13/18 09/13/18 05:47 07:18 11:19 Temperature 98.2 F 99.1 F 97.5 F L Pulse Rate 100 H 88 100 H Respiratory 18 18 18 Rate Blood Pressure 124/68 131/62 111/63 O2 Sat by Pulse 96 100 95 Oximetry 09/13/18 09/13/18 11:20 11:23 Temperature Pulse Rate 99 H Respiratory 16 Rate Blood Pressure O2 Sat by Pulse 94 Oximetry - Labs CBC & Chem 7: 09/03/18 07:40 09/03/18 07:40
[2018-09-14] MEDS: PERCOCET 5/325 PO PRN (01:42)
[2018-09-14] MEDS: LOVENOX SUB-Q SCH (09:12)
[2018-09-14] MEDS: HALFPRIN EC PO SCH (09:12)
[2018-09-14] MEDS: REGLAN PO SCH ×4 (09:12→23:31)
[2018-09-14] MEDS: NON-FORMULARY PO SCH (09:13)
[2018-09-14] MEDS: MACROBID PO SCH ×2 (09:22→16:32)
--- NOTE | 2018-09-14 11:30 | Progress Note ---
Subjective Date of service: 09/14/18 Principal diagnosis: Debility s/p bladder cancer resection Interval history: 73-year-old female with a past history of breast cancer, colorectal cancer and bladder cancer underwent surgical repair of a large parastomal hernia and radical cystectomy with total abdominal hysterectomy, bilateral salpingo- oophorectomy and anterior vaginectomy. She had a complex abdominal wall reconstruction with repair for the peristomal hernia as well as a ileal conduit creation. Patient has tolerated the procedures well. She has macular degeneration and will need to compensate for the visual impairment. Patient is participating in therapy and making reasonable progress. Better participation today. Nephrostomy tubes have been removed and urine is clear. Will d/c macrobid in a couple days. Taking rest breaks as needed. +ostomy output. Difficulty sleeping at times. Decreased appetite but improving, attempting supplements and now wants them 3x daily. Encouraged her to increase protein intake. Denies palpitations, dyspnea, cough, N/V, or joint pain. Shana ls good range. Continue to monitor for need to return to antihypertensive use, has been off of them for some time before hospitalization. Will continue to monitor. All records, vitals, labs and medications were reviewed. No other issues per patient, nursing or therapy. Objective - Exam Narrative Exam: MUSCULOSKELETAL SPECIALTY EXAM CONSTITUTIONAL: Well developed, well nourished, appropriately groomed, NAD EENT: EOMI. Hearing intact to soft voice RESPIRATORY: Clear to auscultation bilaterally, no increased work of breathing CARDIOVASCULAR: Regular Rate/ Rhythm, no swelling, edema or tenderness in BUE or BLE. All extremities warm. GI: + bowel sounds, soft, NTTP, nondistended. Ostomy (L) and ileal conduit (R) in place and functioning. Ileal conduit output clear INTEGUMENTARY: Normal, no lesion, rash, masses or bruising noted in extremities. MUSCULOSKELETAL: BUE and BLE normal without defect, crepitus, subluxation, effusion, arthritic changes or TTP. BUE 4/5, good ROM, with normal tone. BLE 4/5 good ROM, with normal tone NEURO: CN 2-12 grossly intact. Sensation intact in all extremities. No tremor noted in 4 extremities. POSTURE and GAIT: Sitting posture good. Balance appears reasonable. Gait slow but stable with RW. PSYCH: Alert, orientated x3, affect appears normal. Insight appears intact. - Constitutional Vitals: Vital Signs - 12hr 09/14/18 09/14/18 09/14/18 06:16 07:43 08:47 Temperature 37.1 C 36.7 C Pulse Rate 83 18 L Respiratory 18 18 Rate Blood Pressure 110/67 Blood Pressure 120/59 [Left] O2 Sat by Pulse 99 Oximetry - Allied health notes Allied health notes reviewed: nursing, PT, OT FIMS assessment as documented by PT/OT/ST: Grooming Patient cleans teeth/dentures: Yes Patient leslie/brushes hair: Yes Patient washes, rinses and Yes dries face: Patient washes, rinses and Yes dries hands: Patient shaves: No Patient applies make-up: Yes Patient performs (no make-up/ 2/4 (50%) shaving): Patient performs (w/ make-up/ 4/5 (80%) shaving): Grooming FIM Score 5. Supervision (Esko applies toothpaste or opens containers.) Social interaction/Memory/Problem solving Social Interaction FIM Score 5. Supervision (Needs supv. <10%. Needs encouragement to participate.) Memory FIM Score 5. Supervision (Needs cueing <10%, stressful/ unfamiliar situations.) Problem Solving FIM Score 5. Supervision (Needs cueing <10% to solve routine problems.) Transfers Mode of Locomotion: Wheelchair Bed/Chair/Wheelchair Transfers 5. Supervision (Needs supv. or set-up for FIM Score sliding board, foot rests.) Locomotion- Stairs Device used on Stairs Handrail/s Number of Stairs Ascended/ 4 Descended Patient used handrail/support: Yes Stairs FIM Score 2. Maximal Assistance (Patient = 25% or more, 4- 6 stairs.) Locomotion- walk/wheelchair Most Frequent Mode of Walking Locomotion: Ambulation Distance 235 Walking FIM Score 5. Supervision (Minimum 150 ft. supv./cues or 50 ft. independently.) Wheelchair Propulsion Distance 160 Wheelchair FIM Score 5. Supervision (Minimum 150 ft. supv./cues or 50 ft. independently.) Eating Eating FIM Score 6. Modified [place] (Special consistency or uses device.) Dressing-Upper body Patient retrieves clothing Yes items: Upper Body Dressing FIM Score 5. Supv./Set-Up (Esko sets out clothes or applies pros./orth.) Dressing-lower body Lower Body Dressing Device Farm Appraiser/Stick Patient retrieves clothing Yes items: Lower Body Dressing FIM Score 2. Maximal Assistance (Patient = 25% or more) - Labs CBC & Chem 7: 09/03/18 07:40 09/03/18 07:40 Assessment and Plan Z48.815 / Z48.816 s/p colorectal cancer and bladder cancer with radical cystectomy and parastomal repair: monitor wound sites and ostomy output. Macrobid ppx until stents are removed at follow up. R53.81 Debility: PT & OT will work on improving overall functional status to improve participation with ADLs, mobility and social involvement. E44.0 Moderate Protein malnutrition: Alignment Specialist consult, monitor for improvement E87.1 Hyponatremia: Check labs (Urine and Serum Osm and Urine Na), OSH labs reviewed and showed hyponatremia stable. G47.00 Insomnia: trazodone prn, monitor Z73.6 ADL dysfunction: OT will work on improving ability to perform ADLs (including assistive devices) to increase independence and decrease caregiver burden and improve functional transfers and mobility training. R26.2 Difficulty walking: PT will work on gait training and proper use of assistive devices and advance as appropriate to use of stairs and outside ambulation on uneven surfaces. R26.81 Unsteadiness on feet: PT will work on improving static and dynamic sitting and standing balance as well as proper use of assistive devices to decrease risk of falls. R26.89 Abnormality of gait: PT will work to improve safety and efficiency of gait through neuromotor training and gait training along with instruction on proper use of assistive devices. M62.81 Muscle weakness: PT & OT will work on strengthening exercises to improve functional strength including mixture of closed and open kinetic chain exercise s. R53.83 Fatigue: PT & OT will work on improving endurance through aerobic exercises and therapeutic activity while monitoring patients tolerance for activity and vital signs as needed. N18.9 CKD: avoid nephrotoxic medication, monitor renal function E78.5 Hyperlipidemia: continue statin HTN: monitor and restart medications if needed. Ok so far DM: recheck A1c 5.3. Will remove diagnosis Macular Degeneration: Avastin every 6 wks, next dose at end of month IM consulted for medical management. DVT ppx: lovenox Pain: Continue physical modalities in therapy and pain medications as needed to achieve functional pain control. Sleep: Monitor and address as needed. Trazodone ordered. Bowel: Monitor and address as needed. Appetite: Monitor and address as needed. Discharge planning: Pending therapy progress and care plan meeting. Will continue discussion with therapy team, SW, patient and family. Restrictions/ Precautions: Falls, abdominal binder/precautions WB status: FWB Functional Hx: ADLs: Independent Cognition: Independent Mobility: No AD Barriers to Discharge: Decreased mobility and ability to perform self care, balance deficits, weakness Estimated Length of Stay: 14-21 days, may be able to discharge this weekend or possibly early next week if her progress and effort continue Discharge Destination: Home with family
--- NOTE | 2018-09-14 16:42 | Progress Note ---
Assessment and Plan --Complex surgical procedure; supportive care, rehabilitation, physical therapy occupational therapy --History of hypertension; well controlled , Did not need any blood pressure medications, closely monitor --History of diabetes; not needing any coverage A1c 5.3 discontinue Accu-Cheks and sliding scale coverage --History of macular degeneration; visual impairment supportive care --Severe malnutrition/hypoalbuminemia; nutrition supplements --DVT prophylaxis; Lovenox --Gastroesophageal reflux disease; Protonix Continue PT OT and rehabilitation, discharge plan per rehab brief History: 73-year-old female with a past history of breast cancer, colorectal cancer and bladder cancer underwent surgical repair of a large parastomal hernia and radical cystectomy with total abdominal hysterectomy, bilateral salpingo- oophorectomy and anterior vaginectomy. She had a complex abdominal wall reconstruction with repair for the peristomal hernia as well as a ileal conduit creation. She has macular degeneration and will need to compensate for the visual impairment, admitted to the rehabilitation unit for rehabilitation Hospitalist service consulting for medical management; Hospitalist Physical General appearance: Present: no acute distress, well-nourished - EENT Eyes: Present: PERRL, EOM intact - Neck Neck: Present: supple, normal ROM - Respiratory Respiratory effort: normal Respiratory: bilateral: diminished, negative: rales, rhonchi, wheezing - Cardiovascular Rhythm: regular Heart Sounds: Present: S1 & S2 - Extremities Extremities: no ischemia, No edema - Abdominal General gastrointestinal: soft, non-tender, non-distended, normal bowel sounds - Integumentary Integumentary: Present: clear, warm - Psychiatric Psychiatric: appropriate mood/affect, cooperative - Neurologic Neurologic: CNII-XII intact, moves all extremities Subjective Date of service: 09/14/18 Principal diagnosis: Debility s/p bladder cancer resection Interval history: Patient seen and examined medical records reviewed Patient is cheerful , no new complaints Vital signs noted Objective - Constitutional Vitals: Vital Signs - 12hr 09/14/18 09/14/18 09/14/18 06:16 07:43 08:47 Temperature 98.7 F 98.1 F Pulse Rate 83 18 L Respiratory 18 18 Rate Blood Pressure 110/67 Blood Pressure 120/59 [Left] O2 Sat by Pulse 99 Oximetry - Labs CBC & Chem 7: 09/15/18 04:29 09/15/18 04:29
[2018-09-15 04:45] LABS: Basophils # (Auto) 0.1 K/mm3 (0.0-0.1); Basophils % (Auto) 0.9 % (0.0-1.8); Eosinophils # (Auto) 0.3 K/mm3 (0.0-0.4); Eosinophils % (Auto) 3.5 % (0.0-4.3); Lymphocytes # (Auto) 1.4 K/mm3 (1.2-5.4); Lymphocytes % (Auto) 19.9 % (13.4-35.0); Mean Corpuscular HGB Conc 33 % (30-34); Mean Corpuscular Volume 81 fl (79-97); Monocytes # (Auto) 0.9 K/mm3 (0.0-0.8); Monocytes % (Auto) 12.2 % (0.0-7.3); Platelet Count 495 K/mm3 (140-440); Red Blood Count 3.35 M/mm3 (3.65-5.03); Red Cell Distribution Width 16.1 % (13.2-15.2)
[2018-09-15 05:07] LABS: Calcium 8.9 mg/dL (8.4-10.2)
[2018-09-15] MEDS: LOVENOX SUB-Q SCH (08:37)
[2018-09-15] MEDS: MACROBID PO SCH ×2 (08:37→10:00)
[2018-09-15] MEDS: NON-FORMULARY PO SCH ×2 (08:37→10:00)
[2018-09-15] MEDS: HALFPRIN EC PO SCH ×2 (08:38→10:00)
[2018-09-15] MEDS: REGLAN PO SCH ×4 (08:38→21:22)
--- NOTE | 2018-09-15 14:57 | Progress Note ---
Assessment and Plan --Complex surgical procedure; supportive care, rehabilitation, physical therapy occupational therapy --History of hypertension; well controlled , Did not need any blood pressure medications, closely monitor --History of diabetes; not needing any coverage A1c 5.3 discontinue Accu-Cheks and sliding scale coverage --History of macular degeneration; visual impairment supportive care --Severe malnutrition/hypoalbuminemia; nutrition supplements --DVT prophylaxis; Lovenox --Gastroesophageal reflux disease; Protonix Continue PT OT and rehabilitation, discharge plan per rehab brief History: 73-year-old female with a past history of breast cancer, colorectal cancer and bladder cancer underwent surgical repair of a large parastomal hernia and radical cystectomy with total abdominal hysterectomy, bilateral salpingo- oophorectomy and anterior vaginectomy. She had a complex abdominal wall reconstruction with repair for the peristomal hernia as well as a ileal conduit creation. She has macular degeneration and will need to compensate for the visual impairment, admitted to the rehabilitation unit for rehabilitation Hospitalist service consulting for medical management; Hospitalist Physical General appearance: Present: no acute distress, well-nourished - EENT Eyes: Present: PERRL, EOM intact - Neck Neck: Present: supple, normal ROM - Respiratory Respiratory effort: normal Respiratory: bilateral: diminished, negative: rales, rhonchi, wheezing - Cardiovascular Rhythm: regular Heart Sounds: Present: S1 & S2 - Extremities Extremities: no ischemia, No edema - Abdominal General gastrointestinal: soft, non-tender, non-distended, normal bowel sounds - Integumentary Integumentary: Present: clear, warm - Psychiatric Psychiatric: appropriate mood/affect, cooperative - Neurologic Neurologic: CNII-XII intact, moves all extremities Subjective Date of service: 09/15/18 Principal diagnosis: Debility s/p bladder cancer resection Interval history: Patient seen and examined medical records reviewed Patient is cheerful , no new complaints Vital signs noted Objective - Constitutional Vitals: Vital Signs - 12hr 09/15/18 09/15/18 07:00 07:38 Temperature 98.1 F Pulse Rate 91 H 95 H Respiratory 18 Rate Blood Pressure 124/65 [Left] O2 Sat by Pulse 98 Oximetry - Labs CBC & Chem 7: 09/15/18 04:29 09/15/18 04:29 Labs: Abnormal lab results 04/19/19 04/19/19 Range/Units 04:29 04:29 RBC 3.35 L (3.65-5.03) M/mm3 Hgb 9.0 L (10.1-14.3) gm/dl Hct 27.0 L (30.3-42.9) % MCH 27 L (28-32) pg RDW 16.1 H (13.2-15.2) % Plt Count 495 H (140-440) K/mm3 [place] % (Auto) 12.2 H (0.0-7.3) % [place] # 0.9 H (0.0-0.8) K/mm3 Sodium 133 L (137-145) mmol/L Chloride 95.4 L (98-107) mmol/L BUN 21 H (7-17) mg/dL Glucose 129 H (65-100) mg/dL
[2018-09-16] MEDS: REGLAN PO SCH ×4 (08:58→21:25)
[2018-09-16] MEDS: MACROBID PO SCH (09:00)
[2018-09-16] MEDS: NON-FORMULARY PO SCH (09:00)
[2018-09-16] MEDS: HALFPRIN EC PO SCH (09:00)
[2018-09-16] MEDS: LOVENOX SUB-Q SCH (09:00)
--- NOTE | 2018-09-16 10:11 | Progress Note ---
Subjective Date of service: 09/16/18 Principal diagnosis: Debility s/p bladder cancer resection Interval history: 73-year-old female with a past history of breast cancer, colorectal cancer and bladder cancer underwent surgical repair of a large parastomal hernia and radical cystectomy with total abdominal hysterectomy, bilateral salpingo- oophorectomy and anterior vaginectomy. She had a complex abdominal wall reconstruction with repair for the peristomal hernia as well as a ileal conduit creation. Patient has tolerated the procedures well. She has macular degeneration and will need to compensate for the visual impairment. Patient is participating in therapy and making reasonable progress. Better participation yesterday with prolonged walk. Nephrostomy tubes have been removed and urine is clear. Taking rest breaks as needed. +ostomy output. Decreased appetite but improving, attempting supplements and now wants them 3x daily. Encouraged her to increase protein intake. Denies palpitations, dyspnea, cough, N/V, or joint pain. Vitals good range. Continue to monitor for need to return to antihypertensive use, has been off of them for some time before hospitalization. Will continue to monitor. All records, vitals, labs and medications were reviewed. No other issues per patient, nursing or therapy. Objective - Exam Narrative Exam: MUSCULOSKELETAL SPECIALTY EXAM CONSTITUTIONAL: Well developed, well nourished, appropriately groomed, NAD EENT: EOMI. Hearing intact to soft voice RESPIRATORY: Clear to auscultation bilaterally, no increased work of breathing CARDIOVASCULAR: Regular Rate/ Rhythm, no swelling, edema or tenderness in BUE or BLE. All extremities warm. GI: + bowel sounds, soft, NTTP, nondistended. Ostomy (L) and ileal conduit (R) in place and functioning. Ileal conduit output clear INTEGUMENTARY: Normal, no lesion, rash, masses or bruising noted in extremities. MUSCULOSKELETAL: BUE and BLE normal without defect, crepitus, subluxation, effusion, arthritic changes or TTP. BUE 4/5, good ROM, with normal tone. BLE 4/5 good ROM, with normal tone NEURO: CN 2-12 grossly intact. Sensation intact in all extremities. No tremor noted in 4 extremities. POSTURE and GAIT: Sitting posture good. Balance appears reasonable. Gait slow but stable with RW. PSYCH: Alert, orientated x3, affect appears normal. Insight appears intact. - Constitutional Vitals: Vital Signs - 12hr 09/16/18 09/16/18 04:05 07:00 Temperature 36.8 C 36.7 C Pulse Rate 101 H 95 H Respiratory 18 16 Rate Blood Pressure 111/49 Blood Pressure 116/65 [Left] O2 Sat by Pulse 95 96 Oximetry - Allied health notes Allied health notes reviewed: nursing, PT, OT FIMS assessment as documented by PT/OT/ST: Grooming Patient cleans teeth/dentures: Yes Patient leslie/brushes hair: Yes Patient washes, rinses and Yes dries face: Patient washes, rinses and Yes dries hands: Patient shaves: No Patient applies make-up: Yes Patient performs (no make-up/ 2/4 (50%) shaving): Patient performs (w/ make-up/ 5/5 (100%) shaving): Grooming FIM Score 6. Modified [place] (Needs equipment/device . Extra time.) Social interaction/Memory/Problem solving Social Interaction FIM Score 6. Mod. [place] (Mostly appropriate. May need meds. No supv.) Memory FIM Score 7. Complete [place] (Remembers people and routines.) Problem Solving FIM Score 6. Mod. [place] (Mild difficulty or needs more time w/ complex.) Transfers Mode of Locomotion: Wheelchair Bed/Chair/Wheelchair Transfers 6. Modified [place] (Uses device, sliding FIM Score board, prosth./orth.) Locomotion- Stairs Device used on Stairs Handrail/s Number of Stairs Ascended/ 4 Descended Patient used handrail/support: Yes Stairs FIM Score 2. Maximal Assistance (Patient = 25% or more, 4- 6 stairs.) Locomotion- walk/wheelchair Most Frequent Mode of Walking Locomotion: Ambulation Distance 600 Walking FIM Score 5. Supervision (Minimum 150 ft. supv./cues or 50 ft. independently.) Wheelchair Propulsion Distance 350 Wheelchair FIM Score 6. Modified [place] (Wheels a minimum of 150 ft.) Eating Eating FIM Score 6. Modified [place] (Special consistency or uses device.) Dressing-Upper body Patient retrieves clothing Yes items: Upper Body Dressing FIM Score 7. Complete [place] (Dresses self. Gets own clothes.) Dressing-lower body Lower Body Dressing Device Coating Machine Operator Helper/Stick Patient retrieves clothing Yes items: Lower Body Dressing FIM Score 5. Supv./Set-Up ([place] sets out clothes or applies pros./orth.) - Labs CBC & Chem 7: 09/15/18 04:29 09/15/18 04:29 Labs: Laboratory Results - last 72 hr 09/15/18 09/15/18 04:29 04:29 WBC 7.2 RBC 3.35 L Hgb 9.0 L Hct 27.0 L MCV 81 MCH 27 L MCHC 33 RDW 16.1 H Plt Count 495 H Lymph % (Auto) 19.9 [place] % (Auto) 12.2 H Eos % (Auto) 3.5 Baso % (Auto) 0.9 Lymph # 1.4 [place] # 0.9 H Eos # 0.3 Baso # 0.1 Seg Neutrophils % 63.5 Seg Neutrophils # 4.5 Sodium 133 L Potassium 4.8 Chloride 95.4 L Carbon Dioxide 25 Anion Gap 17 BUN 21 H Creatinine 1.0 Estimated GFR 54 BUN/Creatinine Ratio 21 Glucose 129 H Calcium 8.9 Assessment and Plan Z48.815 / Z48.816 s/p colorectal cancer and bladder cancer with radical cystectomy and parastomal repair: monitor wound sites and ostomy output. R53.81 Debility: PT & OT will work on improving overall functional status to improve participation with ADLs, mobility and social involvement. E44.0 Moderate Protein malnutrition: Senior Electrical Controls Engineer consult, monitor for improvement E87.1 Hyponatremia: Check labs (Urine and Serum Osm and Urine Na), OSH labs reviewed and showed hyponatremia stable. G47.00 Insomnia: trazodone prn, monitor Z73.6 ADL dysfunction: OT will work on improving ability to perform ADLs (including assistive devices) to increase independence and decrease caregiver bu rden and improve functional transfers and mobility training. R26.2 Difficulty walking: PT will work on gait training and proper use of assistive devices and advance as appropriate to use of stairs and outside ambulation on uneven surfaces. R26.81 Unsteadiness on feet: PT will work on improving static and dynamic sitting and standing balance as well as proper use of assistive devices to decrease risk of falls. R26.89 Abnormality of gait: PT will work to improve safety and efficiency of gait through neuromotor training and gait training along with instruction on proper use of assistive devices. M62.81 Muscle weakness: PT & OT will work on strengthening exercises to improve functional strength including mixture of closed and open kinetic chain exercises. R53.83 Fatigue: PT & OT will work on improving endurance through aerobic exercises and therapeutic activity while monitoring patients tolerance for activity and vital signs as needed. N18.9 CKD: avoid nephrotoxic medication, monitor renal function E78.5 Hyperlipidemia: continue statin HTN: monitor and restart medications if needed. Ok so far DM: recheck A1c 5.3. Will remove diagnosis Macular Degeneration: Avastin every 6 wks, next dose at end of month IM consulted for medical management. DVT ppx: lovenox Pain: Continue physical modalities in therapy and pain medications as needed to achieve functional pain control. Sleep: Monitor and address as needed. Trazodone ordered. Bowel: Monitor and address as needed. Appetite: Monitor and address as needed. Discharge planning: Pending therapy progress and care plan meeting. Will continue discussion with therapy team, SW, patient and family. Restrictions/ Precautions: Falls, abdominal binder/precautions WB status: FWB Functional Hx: ADLs: Independent Cognition: Independent Mobility: No AD Barriers to Discharge: Decreased mobility and ability to perform self care, bal ance deficits, weakness Estimated Length of Stay: 14-21 days, may be able to discharge this weekend or possibly early next week if her progress and effort continue Discharge Destination: Home with family
[2018-09-17] MEDS: REGLAN PO SCH ×4 (07:55→21:26)
[2018-09-17] MEDS: HALFPRIN EC PO SCH (09:54)
[2018-09-17] MEDS: MACROBID PO SCH (09:56)
[2018-09-17] MEDS: LOVENOX SUB-Q SCH (09:56)
[2018-09-17] MEDS: NON-FORMULARY PO SCH (09:57)
--- NOTE | 2018-09-17 11:35 | Progress Note ---
Assessment and Plan --Complex surgical procedure; supportive care, rehabilitation, physical therapy occupational therapy --History of hypertension; well controlled , Did not need any blood pressure medications, closely monitor --History of diabetes; not needing any coverage A1c 5.3 discontinue Accu-Cheks and sliding scale coverage --History of macular degeneration; visual impairment supportive care --Severe malnutrition/hypoalbuminemia; nutrition supplements --DVT prophylaxis; Lovenox --Gastroesophageal reflux disease; Protonix Continue PT OT and rehabilitation, discharge plan per rehab brief History: 73-year-old female with a past history of breast cancer, colorectal cancer and bladder cancer underwent surgical repair of a large parastomal hernia and radical cystectomy with total abdominal hysterectomy, bilateral salpingo- oophorectomy and anterior vaginectomy. She had a complex abdominal wall reconstruction with repair for the peristomal hernia as well as a ileal conduit creation. She has macular degeneration and will need to compensate for the visual impairment, admitted to the rehabilitation unit for rehabilitation Hospitalist service consulting for medical management; Hospitalist Physical General appearance: Present: no acute distress, well-nourished - EENT Eyes: Present: PERRL, EOM intact - Neck Neck: Present: supple, normal ROM - Respiratory Respiratory effort: normal Respiratory: bilateral: diminished, negative: rales, rhonchi, wheezing - Cardiovascular Rhythm: regular Heart Sounds: Present: S1 & S2 - Extremities Extremities: no ischemia, No edema - Abdominal General gastrointestinal: soft, non-tender, non-distended, normal bowel sounds - Integumentary Integumentary: Present: clear, warm - Psychiatric Psychiatric: appropriate mood/affect, cooperative - Neurologic Neurologic: CNII-XII intact, moves all extremities Subjective Date of service: 09/16/18 Principal diagnosis: Debility s/p bladder cancer resection Interval history: Patient seen and examined medical records reviewed Patient is cheerful , no new complaints Vital signs noted Objective - Constitutional Vitals: Vital Signs - 12hr 09/17/18 09/17/18 09/17/18 03:55 08:00 08:17 Temperature 98.3 F 98.5 F Pulse Rate 96 H 63 96 H Respiratory 18 18 Rate Blood Pressure 134/72 Blood Pressure 142/78 [Left] O2 Sat by Pulse 96 95 Oximetry - Labs CBC & Chem 7: 09/15/18 04:29 09/15/18 04:29
[2018-09-18] MEDS: PERCOCET 5/325 PO PRN (01:43)
[2018-09-18] MEDS: REGLAN PO SCH ×4 (09:17→22:38)
[2018-09-18] MEDS: HALFPRIN EC PO SCH (09:17)
[2018-09-18] MEDS: LOVENOX SUB-Q SCH (09:17)
[2018-09-18] MEDS: NON-FORMULARY PO SCH (09:17)
--- NOTE | 2018-09-18 17:03 | Progress Note ---
Assessment and Plan --Complex surgical procedure; supportive care, rehabilitation, physical therapy occupational therapy --History of hypertension; well controlled , Did not need any blood pressure medications, closely monitor --History of diabetes; not needing any coverage A1c 5.3 discontinue Accu-Cheks and sliding scale coverage --History of macular degeneration; visual impairment supportive care --Severe malnutrition/hypoalbuminemia; nutrition supplements --DVT prophylaxis; Lovenox --Gastroesophageal reflux disease; Protonix Continue PT OT and rehabilitation, discharge plan per rehab brief History: 73-year-old female with a past history of breast cancer, colorectal cancer and bladder cancer underwent surgical repair of a large parastomal hernia and radical cystectomy with total abdominal hysterectomy, bilateral salpingo- oophorectomy and anterior vaginectomy. She had a complex abdominal wall reconstruction with repair for the peristomal hernia as well as a ileal conduit creation. She has macular degeneration and will need to compensate for the visual impairment, admitted to the rehabilitation unit for rehabilitation Hospitalist service consulting for medical management; Hospitalist Physical General appearance: Present: no acute distress, well-nourished - EENT Eyes: Present: PERRL, EOM intact - Neck Neck: Present: supple, normal ROM - Respiratory Respiratory effort: normal Respiratory: bilateral: diminished, negative: rales, rhonchi, wheezing - Cardiovascular Rhythm: regular Heart Sounds: Present: S1 & S2 - Extremities Extremities: no ischemia, No edema - Abdominal General gastrointestinal: soft, non-tender, non-distended, normal bowel sounds - Integumentary Integumentary: Present: clear, warm - Psychiatric Psychiatric: appropriate mood/affect, cooperative - Neurologic Neurologic: CNII-XII intact, moves all extremities Subjective Date of service: 09/18/18 Principal diagnosis: Debility s/p bladder cancer resection Interval history: Patient seen and examined medical records reviewed Patient is cheerful , no new complaints Vital signs noted Objective - Constitutional Vitals: Vital Signs - 12hr 09/18/18 09/18/18 09/18/18 07:45 10:40 11:55 Temperature 98.3 F 97.8 F 98.0 F Pulse Rate 85 91 H 91 H Respiratory 18 18 19 Rate Blood Pressure 134/68 113/56 126/64 [Left] O2 Sat by Pulse 100 97 97 Oximetry 09/18/18 16:30 Temperature 98.8 F Pulse Rate 91 H Respiratory 18 Rate Blood Pressure 138/75 [Left] O2 Sat by Pulse 97 Oximetry - Labs CBC & Chem 7: 09/15/18 04:29 09/15/18 04:29
[2018-09-19] MEDS: REGLAN PO SCH ×2 (07:30→11:00)
--- NOTE | 2018-09-19 09:09 | Progress Note ---
Assessment and Plan Assessment and plan: 73-year-old female with a past history of breast cancer, colorectal cancer and bladder cancer underwent surgical repair of a large parastomal hernia and radical cystectomy with total abdominal hysterectomy, bilateral salpingo- oophorectomy and anterior vaginectomy. She had a complex abdominal wall recons truction with repair for the peristomal hernia as well as a ileal conduit creation.She has macular degeneration and will need to compensate for the visual impairment, admitted to the rehabilitation unit for rehabilitation Hospitalist service consulting for medical management; --History of hypertension; well controlled , Did not need any blood pressure medications, closely monitor --History of diabetes; not needing any coverage A1c 5.3 discontinue Accu-Cheks and sliding scale coverage --Complex surgical procedure; supportive care, rehabilitation, physical therapy occupational therapy --History of macular degeneration; visual impairment supportive care --Severe malnutrition/hypoalbuminemia; nutrition supplements --DVT prophylaxis; Lovenox --Gastroesophageal reflux disease; Protonix Continue PT OT and rehabilitation, discharge plan per rehab History Interval history: Patient seen and examined this morning medical records No new events reported by the nursing Patient feels better , excited to be discharged today Vital signs noted Hospitalist Physical - Constitutional Vitals: Temp Pulse Resp BP Pulse Ox 98.2 F 86 19 123/60 95 09/19/18 03:38 09/19/18 03:38 09/19/18 03:38 09/19/18 03:38 09/19/18 03:38 General appearance: Present: no acute distress, well-nourished - EENT Eyes: Present: PERRL, EOM intact - Neck Neck: Present: supple, normal ROM - Respiratory Respiratory effort: normal Respiratory: bilateral: diminished, negative: rales, rhonchi, wheezing - Cardiovascular Rhythm: regular Heart Sounds: Present: S1 & S2 - Extremities Extremities: no ischemia, No edema - Abdominal General gastrointestinal: soft, non-tender, non-distended, normal bowel sounds, other (ileostomy colostomy functional in place) - Integumentary Integumentary: Present: clear, warm - Psychiatric Psychiatric: appropriate mood/affect, cooperative - Neurologic Neurologic: CNII-XII intact, moves all extremities Results - Labs CBC & Chem 7: 09/15/18 04:29 09/15/18 04:29 Labs: Laboratory Last Values WBC 7.2 K/mm3 (4.5-11.0) 09/15/18 04:29 RBC 3.35 M/mm3 (3.65-5.03) L 09/15/18 04:29 Hgb 9.0 gm/dl (10.1-14.3) L 09/15/18 04:29 Hct 27.0 % (30.3-42.9) L 09/15/18 04:29 MCV 81 fl (79-97) 09/15/18 04:29 MCH 27 pg (28-32) L 09/15/18 04:29 MCHC 33 % (30-34) 09/15/18 04:29 RDW 16.1 % (13.2-15.2) H 09/15/18 04:29 Plt Count 495 K/mm3 (140-440) H 09/15/18 04:29 Lymph % (Auto) 19.9 % (13.4-35.0) 09/15/18 04:29 [place] % (Auto) 12.2 % (0.0-7.3) H 09/15/18 04:29 Eos % (Auto) 3.5 % (0.0-4.3) 09/15/18 04:29 Baso % (Auto) 0.9 % (0.0-1.8) 09/15/18 04:29 Lymph # 1.4 K/mm3 (1.2-5.4) 09/15/18 04:29 [place] # 0.9 K/mm3 (0.0-0.8) H 09/15/18 04:29 Eos # 0.3 K/mm3 (0.0-0.4) 09/15/18 04:29 Baso # 0.1 K/mm3 (0.0-0.1) 09/15/18 04:29 Add Manual Diff Complete 09/01/18 07:16 Total Counted 100 09/01/18 07:16 Seg Neutrophils % 63.5 % (40.0-70.0) 09/15/18 04:29 Seg Neuts % (Manual) 82.0 % (40.0-70.0) H 09/01/18 07:16 Band Neutrophils % 0 % 09/01/18 07:16 Lymphocytes % (Manual) 9.0 % (13.4-35.0) L 09/01/18 07:16 Reactive Lymphs % (Man) 0 % 09/01/18 07:16 Monocytes % (Manual) 5.0 % (0.0-7.3) 09/01/18 07:16 Eosinophils % (Manual) 2.0 % (0.0-4.3) 09/01/18 07:16 Basophils % (Manual) 0 % (0.0-1.8) 09/01/18 07:16 Metamyelocytes % 1.0 % 09/01/18 07:16 Myelocytes % 1.0 % 09/01/18 07:16 Promyelocytes % 0 % 09/01/18 07:16 Blast Cells % 0 % 09/01/18 07:16 Nucleated RBC % Not Reportable 09/01/18 07:16 Seg Neutrophils # 4.5 K/mm3 (1.8-7.7) 09/15/18 04:29 Seg Neutrophils # Man 7.5 K/mm3 (1.8-7.7) 09/01/18 07:16 Band Neutrophils # 0.0 K/mm3 09/01/18 07:16 Lymphocytes # (Manual) 0.8 K/mm3 (1.2-5.4) L 09/01/18 07:16 Abs React Lymphs (Man) 0.0 K/mm3 09/01/18 07:16 Monocytes # (Manual) 0.5 K/mm3 (0.0-0.8) 09/01/18 07:16 Eosinophils # (Manual) 0.2 K/mm3 (0.0-0.4) 09/01/18 07:16 Basophils # (Manual) 0.0 K/mm3 (0.0-0.1) 09/01/18 07:16 Metamyelocytes # 0.1 K/mm3 09/01/18 07:16 Myelocytes # 0.1 K/mm3 09/01/18 07:16 Promyelocytes # 0.0 K/mm3 09/01/18 07:16 Blast Cells # 0.0 K/mm3 09/01/18 07:16 WBC Morphology Not Reportable 09/01/18 07:16 Hypersegmented Neuts Not Reportable 09/01/18 07:16 Hyposegmented Neuts Not Reportable 09/01/18 07:16 Hypogranular Neuts Not Reportable 09/01/18 07:16 Smudge Cells Not Reportable 09/01/18 07:16 Toxic Granulation Not Reportable 09/01/18 07:16 Toxic Vacuolation Not Reportable 09/01/18 07:16 Dohle Bodies Not Reportable 09/01/18 07:16 [place]uet Anomaly Not Reportable 09/01/18 07:16 Mine Rods Not Reportable 09/01/18 07:16 Platelet Estimate Appears normal 09/01/18 07:16 Clumped Platelets Not Reportable 09/01/18 07:16 Plt Clumps, EDTA Not Reportable 09/01/18 07:16 Large Platelets Not Reportable 09/01/18 07:16 Giant Platelets Not Reportable 09/01/18 07:16 Platelet Satelliting Not Reportable 09/01/18 07:16 Plt Morphology Comment Not Reportable 09/01/18 07:16 RBC Morphology Not Reportable 09/01/18 07:16 Dimorphic RBCs Not Reportable 09/01/18 07:16 Polychromasia Not Reportable 09/01/18 07:16 Hypochromasia Not Reportable 09/01/18 07:16 Poikilocytosis Not Reportable 09/01/18 07:16 Anisocytosis 1+ 09/01/18 07:16 Microcytosis Not Reportable 09/01/18 07:16 Macrocytosis Not Reportable 09/01/18 07:16 Spherocytes Not Reportable 09/01/18 07:16 Pappenheimer Bodies Not Reportable 09/01/18 07:16 Sickle Cells Not Reportable 09/01/18 07:16 Target Cells Not Reportable 09/01/18 07:16 Tear Drop Cells Not Reportable 09/01/18 07:16 Ovalocytes Not Reportable 09/01/18 07:16 Helmet Cells Not Reportable 09/01/18 07:16 [place] Bodies Not Reportable 09/01/18 07:16 [place] Rings Not Reportable 09/01/18 07:16 [place] Cells Not Reportable 09/01/18 07:16 Bite Cells Not Reportable 09/01/18 07:16 Crenated Cell Not Reportable 09/01/18 07:16 Elliptocytes Not Reportable 09/01/18 07:16 Acanthocytes (Spur) Not Reportable 09/01/18 07:16 Rouleaux Not Reportable 09/01/18 07:16 Hemoglobin C Crystals Not Reportable 09/01/18 07:16 Schistocytes Not Reportable 09/01/18 07:16 Malaria parasites Not Reportable 09/01/18 07:16 [place] Bodies Not Reportable 09/01/18 07:16 Hem Pathologist Commnt No 09/01/18 07:16 Sodium 133 mmol/L (137-145) L 09/15/18 04:29 Potassium 4.8 mmol/L (3.6-5.0) 09/15/18 04:29 Chloride 95.4 mmol/L (98-107) L 09/15/18 04:29 Carbon Dioxide 25 mmol/L (22-30) 09/15/18 04:29 Anion Gap 17 mmol/L 09/15/18 04:29 BUN 21 mg/dL (7-17) H 09/15/18 04:29 Creatinine 1.0 mg/dL (0.7-1.2) 09/15/18 04:29 Estimated GFR 54 ml/min 09/15/18 04:29 BUN/Creatinine Ratio 21 % 09/15/18 04:29 Glucose 129 mg/dL (65-100) H 09/15/18 04:29 POC Glucose 113 (70-105) H 09/09/18 07:41 Hemoglobin A1c 5.3 % (4-6) 09/02/18 06:53 Osmolality 275 Mosm/kg 09/03/18 11:56 Calcium 8.9 mg/dL (8.4-10.2) 09/15/18 04:29 Total Bilirubin 0.20 mg/dL (0.1-1.2) 09/01/18 07:16 AST 20 units/L (5-40) 09/01/18 07:16 ALT 10 units/L (7-56) 09/01/18 07:16 Alkaline Phosphatase 55 units/L (35-129) 09/01/18 07:16 Total Protein 5.1 g/dL (6.3-8.2) L 09/01/18 07:16 Albumin 2.4 g/dL (3.9-5) L 09/01/18 07:16 Albumin/Globulin Ratio 0.9 % 09/01/18 07:16 Prealbumin 0.173 g/L (0.200-0.400) L 09/01/18 07:16 Urine Osmolality 312 Mosm/kg 09/03/18 Unknown Urine Sodium 65 mmol/L 09/03/18 Unknown Active Medications - Current Medications Current Medications: Generic Name Dose Route Start Last Admin Trade Name Freq PRN Reason Stop Dose Admin Aspirin 81 mg 09/07/18 10:00 09/18/18 09:17 Halfprin Ec PO 81 mg DAILY CONSTANTINE Administration Atorvastatin Calcium 40 mg 08/31/18 22:00 09/18/18 22:38 Lipitor PO 40 mg QHS CONSTANTINE Administration Enoxaparin Sodium 40 mg 09/01/18 10:00 09/18/18 09:17 Lovenox SUB-Q 40 mg QDAY CONSTANTINE Administration Hydralazine HCl 10 mg 09/09/18 15:09 Apresoline PO Q6H PRN HTN >150/90 Metoclopramide HCl 5 mg 08/31/18 22:00 09/18/18 22:38 Reglan PO 5 mg ACHS CONSTANTINE Administration Miscellaneous Medication 1 each 09/04/18 10:00 09/18/18 09:17 Non-Formulary PO 1 each DAILY CONSTANTINE Administration Oxycodone/Acetaminophen 1 tab 09/02/18 09:22 09/18/18 01:43 Percocet 5/325 PO 1 tab Q6H PRN Administration Pain, Moderate (4-6) Polyethylene Glycol 17 gm 09/01/18 10:00 09/05/18 10:18 Miralax 3350 PO 17 gm QDAY PRN Administration Constipation Trazodone HCl 50 mg 08/31/18 20:41 09/07/18 23:54 Desyrel PO 50 mg QHS PRN Administration Insomnia Nutrition/Malnutrition Assess - Dietary Evaluation Nutrition/Malnutrition Findings: Nutrition Notes Start: 09/07/18 10:44 Freq: Status: Active Protocol: Document 09/07/18 10:44 EB (Rec: 09/07/18 10:51 EB [id number]) Co-Sign 09/07/18 10:44 LP Nutrition Notes Need for Assessment generated from: LOS Initial or Follow up Brief Note Other Pertinent Diagnosis PMHx breast, colorectal, and bladder CA Current Diet Regular Labs/Tests Reviewed Pertinent Medications Reglan Height 5 ft 5.08 in Weight 81.6 kg Usual Body Weight 81.193 kg [place] Body Weight (kg) 57.00 BMI 29.8 Intake Prior to Admission Fair Weight Status Appropriate Subjective/Other Information Screened for LOS. Pt reports consuming about 75 % of each meal, and states that even when she does not feel hungry she manages to eat an adequate amount. Pt requests Ensure Enlive to be delivered at dinner time, and also that she does not like eggs and instead would like double cereal for breakfast tray. UBW: 179 lbs (81.4 kg). Percent of energy/protein needs met: 100%/100% Burn Absent Trauma Absent Is patient on ventilator? No Is Patient Ambulatory and/or Out of Bed Yes REE-([place]. or-ambulatory/OOB) [ 1707.069 [id number]] Calculation Used for Recommendations [facility] Additional Notes PRO: 1-1.2 g/kg (81-97 g/day) Fluid: 1 mL/kcal Nutrition Intervention Change Diet Order: Continue current + double portion cereal at breakfast Add Supplement/Snack (indicate name/kcal Ensure Enlive strawberry (with /protein ) dinner tray) Provides kCal: 350 Provides Protein (gm) 20 Goal #1 Continue to meet at least 75% yung and pro needs via PO and ONS intake Revisit per MD consult or patient Sign Off request:
[2018-09-19] MEDS: HALFPRIN EC PO SCH (11:01)
[2018-09-19] MEDS: NON-FORMULARY PO SCH (11:02)
[2018-09-19] MEDS: LOVENOX SUB-Q SCH (11:05)
--- NOTE | 2018-09-19 11:54 | Discharge Summary ---
Providers - Providers Date of Admission: 08/31/18 20:21 Date of discharge: 09/19/18 Attending physician: VITALY JOHN III, MD 08/31/18 20:21 Occupational Therapy Evaluate and Treat [CONS] Routine Comment: Reason For Exam: ADL dysfunction Physical Therapy Evaluation and Treat [CONS] Routine Comment: Reason For Exam: Mobility Dysfunction 08/31/18 20:34 Consult to Case Management [CONS] Routine Services Needed at Discharge: Home Health Services Notified:: LAMONT HARRISON 09/06/18 08:13 Consult to Physician [CONS] Routine Comment: CONSULT COMPLETED - ELIZA Consulting Provider: RAMYA REYNOSO Physician Instructions: Reason For Exam: Medical Management 09/18/18 17:03 Consult to Wound/ET Nurse [CONS] Routine Reason For Exam: wound eval colostomy, urostomy Primary care physician: PELOTA MAKER Hospitalization Reason for admission: Debility s/p bladder cancer resection Condition: Fair Pertinent studies: NA Procedures: NA Hospital course: 73-year-old female with a past history of breast cancer, colorectal cancer and bladder cancer underwent surgical repair of a large parastomal hernia and radical cystectomy with total abdominal hysterectomy, bilateral salpingo- oophorectomy and anterior vaginectomy. She had a complex abdominal wall reconstruction with repair for the peristomal hernia as well as a ileal conduit creation. Patient has tolerated the procedures well. She has macular degeneration and will need to compensate for the visual impairment Of note patient states that she previously had diabetes and was placed on glipizide however her primary care physician took her off medication and noted that her A1c normalized after being off medication for some time. Likewise she also had hypertension but was becoming hypotensive frequently and her physician weaned her off of her antihypertensives with good results. She was transferred to us on antihypertensives but we will monitor her off of antihypertensive medications replacing them judiciously if need be. I'll recheck an A1c just to clarify that she does not need to be on any medication or treatment for diabetes. Also adjusted the transfer medications to include stopping Pyridium. Patient states that she thought she was taken off of the Macrobid however I was able to contact the urology service at [place] and they advised that she needs to continue taking Macrobid until the stents are removed. She will need a follow- up in 2 weeks with urology with Dr. ALEMOZAFFAR. Patient had a slow rehabilitation due primarily to decreased motivation. Once confronted about this issue she improved and was quickly able to obtain the level at which she was safe to discharge home. She had no complications during her stay. Sodium remained level slightly decreased. Hemoglobin was steady. She was trained several times on appropriate care of her ostomy and ileal conduit. She'll need to continue her follow-up with her physicians for further care and coordination. Hypertension was monitored and she was normotensive during her stay. She was discharged to our location on Reglan 4 times a day but states that she was only using it once a day at home. I reduced the dose in order to attempt to avoid complications but to also improve her GI symptoms. At follow up with her PCP this should be addressed with monitoring and possible further decreases and/or discontinuation as able. Disposition: [id number] HOME UNDER HOME HLTH Time spent for discharge: >30 - Discharge Diagnoses (1) Debility Status: Acute Core Measure Documentation - Palliative Care Palliative Care/ Comfort Measures: Not Applicable - Core Measures Any of the following diagnoses?: none Exam - Physical Exam Narrative exam: MUSCULOSKELETAL SPECIALTY EXAM CONSTITUTIONAL: Well developed, well nourished, appropriately groomed, NAD EENT: EOMI. Hearing intact to soft voice RESPIRATORY: Clear to auscultation bilaterally, no increased work of breathing CARDIOVASCULAR: Regular Rate/ Rhythm, no swelling, edema or tenderness in BUE or BLE. All extremities warm. GI: + bowel sounds, soft, NTTP, nondistended. Ostomy (L) and ileal conduit (R) in place and functioning. Ileal conduit output clear INTEGUMENTARY: Normal, no lesion, rash, masses or bruising noted in extremities. MUSCULOSKELETAL: BUE and BLE normal without defect, crepitus, subluxation, effusion, arthritic changes or TTP. BUE 4/5, good ROM, with normal tone. BLE 4/5 good ROM, with normal tone NEURO: CN 2-12 grossly intact. Sensation intact in all extremities. No tremor noted in 4 extremities. POSTURE and GAIT: Sitting posture good. Balance appears reasonable. Gait slow but stable with RW. PSYCH: Alert, orientated x3, affect appears normal. Insight appears intact. - Constitutional Vitals: Temp Pulse Resp BP Pulse Ox 36.6 C 93 H 18 119/59 94 09/19/18 08:45 09/19/18 08:45 09/19/18 08:45 09/19/18 08:45 09/19/18 08:45 Plan Activity: advance as tolerated, no driving until cleared by PCP, fall precautions Diet: regular Special Instructions: physical therapy, occupational therapy, home health RN Durable Medical Equipment Needed Upon Discharge: [place] Follow up with: PRIMARY CARE, [Primary Care Provider] - 7 Days Prescriptions: traZODone [Desyrel] 50 mg PO QHS PRN 30 Days #30 tablet PRN Reason: Insomnia AtorvaSTATin [Lipitor] 40 mg PO QHS 30 Days #30 tablet Aspirin EC [Aspirin Enteric Coated TAB] 81 mg PO DAILY 30 Days #30 tablet Polyethylene Glycol 3350 [Miralax 3350] 17 gm PO QDAY PRN 30 Days #30 powd.pack PRN Reason: Constipation oxyCODONE /ACETAMINOPHEN [Percocet 5/325 mg] 1 tab PO BID PRN 10 Days #15 tablet PRN Reason: Pain, Moderate (4-6) Metoclopramide [Reglan TAB] 5 mg PO BID 30 Days #60 tablet
[2018-09-19 13:27] VITALS: BP 137/67
== END 2018-09-19 16:30 | disposition still patient (30) | DRG 947 ==
LOC: UNDOADMIN 12:22 → 3A 12:22 → 3B 20:21 → UNDOADMIN 20:41
PROVIDERS: ADMIT Physical Medicine & Rehabilitation; ATTEND Physical Medicine & Rehabilitation
DX: R53.81 Other malaise (principal); E43 Unspecified severe protein-calorie malnutrition; E87.1 Hypo-osmolality and hyponatremia; N18.3 Chronic kidney disease, stage 3 (moderate); Z85.3 Personal history of malignant neoplasm of breast; K21.9 Gastro-esophageal reflux disease without esophagitis; H35.30 Unspecified macular degeneration; E78.5 Hyperlipidemia, unspecified; I12.9 Hypertensive chronic kidney disease with stage 1 through stage 4 chronic kidney disease, or unspecified chronic kidney disease; E11.22 Type 2 diabetes mellitus with diabetic chronic kidney disease; Z85.038 Personal history of other malignant neoplasm of large intestine; G47.00 Insomnia, unspecified; Z85.51 Personal history of malignant neoplasm of bladder; Z85.048 Personal history of other malignant neoplasm of rectum, rectosigmoid junction, and anus; Z90.710 Acquired absence of both cervix and uterus; Z90.722 Acquired absence of ovaries, bilateral; Z86.718 Personal history of other venous thrombosis and embolism; Z88.1 Allergy status to other antibiotic agents; Z68.29 Body mass index [BMI] 29.0-29.9, adult
CPT/HCPCS: 36415; 80048; 80053; 82962; 83036; 83930; 83935; 84134; 84300; 85007; 85025; 85027; G0378; A9270-GY; J1650